=== PATIENT | female | born 1950 | race Caucasian/White ===

== ENCOUNTER 2023-06-05 08:30 | Outpatient (RCR) | payer OTHER, SELFPAY ==
[2023-01-31 10:10] VITALS: BP 120/60; BP 148/70
[2023-03-26 10:51] VITALS: BP 116/56; BMI 34.0
== END 2023-09-24 13:53 | disposition home or self-care (01) ==
LOC: HO.OT 08:30
PROVIDERS: PCP Internal Medicine; Visit Provider Internal Medicine Rheumatology
DX: M19.041 Primary osteoarthritis, right hand (principal); M19.042 Primary osteoarthritis, left hand
CPT/HCPCS: 29125; 97110; 97140; 97166; 97530; 97760

== ENCOUNTER 2024-05-07 10:22 | Outpatient (REF) | payer OTHER, SELFPAY ==
[2023-05-24 16:49] VITALS: BP 116/62; BP 168/68; BMI 34.4
[2024-05-07 18:13] LABS: MANUAL DIFF FLAG NO
[2024-05-07 18:31] LABS: Basophils Absolute Auto 0.1 X10*3/uL (0.0-0.2); Basophils Percent Auto 0.6 % (0-2); Eosinophils Absolute Auto 0.6 X10*3/uL (0.0-0.4); Eosinophils Percent Auto 5.3 % (0-4); Hematocrit 43.7 % (37.0-47.0); Hemoglobin 13.8 g/dl (12.0-16.0); Imm Gran Abs Auto 0.03 X10*3/uL (0.00-0.03); Imm Gran Pct Auto 0.3 % (0.0-0.4); Lymphocytes Percent Auto 18.3 % (20-40); Mean Corpuscular HGB Conc 31.6 g/dl (31.0-35.0); Mean Corpuscular Hemoglobin 28.3 pg (27.0-33.0); Mean Corpuscular Volume 89.7 fL (80.0-98.0); Mean Platelet Volume 9.5 fL (9.4-12.3); Monocytes Absolute Auto 0.6 X10*3/uL (0.1-1.2); Neutrophils Absolute Auto 7.7 x10*3/uL (2.0-8.3); Neutrophils Percent Auto 70.5 % (45-73); Platelet Count 325 X10*3/uL (160-400); Red Blood Count 4.87 X10*6/uL (4.20-5.50); Red Cell Distribution Width 14.1 % (11.0-16.0); White Blood Count 10.9 X10*3/uL (4.8-10.8)
[2024-05-07 18:36] LABS: Alanine Aminotransferase 17 U/L (0-31); Albumin Level 4.3 g/dL (3.5-5.0); Aspartate Amino Transferase 25 U/L (5-31); Calcium 9.6 mg/dL (8.4-10.2); Estimated Glomerular Filt Rate > 60; Magnesium 2.2 mg/dL (1.6-2.6)
[2024-05-07 18:52] LABS: Vitamin D 25-OH Total 50.7 ng/mL (>30)
== END 2024-05-07 10:23 | disposition home or self-care (01) ==
LOC: HO.HKASLDS 10:22
PROVIDERS: PCP Internal Medicine; Visit Provider Internal Medicine Rheumatology
DX: M81.0 Age-related osteoporosis without current pathological fracture (principal)
CPT/HCPCS: 36415; 82040; 82306; 82310; 82565; 83735; 84450; 84460; 85025

== ENCOUNTER 2024-05-07 10:22 | Outpatient (AMB) | payer OTHER, SELFPAY ==
[2023-05-24 16:49] VITALS: BP 116/62; BP 168/68; BMI 34.4
--- NOTE | 2024-05-07 10:40 | MHC.OFFVIS ---
Vital Signs 05/07/24 10:44 05/07/24 10:56 Height 5 ft 4 in Weight 200 lb BMI 34.3 BP 132/72 Blood Pressure Location Lt brachial Position Sitting Pulse 82 Pulse Source Pulse Oximeter Pulse Oximetry (%) 96 Oxygen Delivery Method Room Air Intake Visit Reasons: OA Intake Note: Patient presents for follow up on RA today. Patient would like refill on vitamin D and 90 days, supply, please. Allergies ALL COLOR DYES Allergy (Unknown, Uncoded 01/14/20 19:20) RASH/SOB HPI HPI OA: Details: She feels well. She feels stronger with physical therapy. She does exercise 6 days a week. PFS Social History Patient Tobacco Use Status: Never used Tobacco Review of Systems Const All systems reviewed & are unremarkable except as noted in HPI and below Physical Exam Vital Signs: Last Vital Signs Pulse 82 05/07/24 10:56 BP 132/72 05/07/24 10:56 Pulse Ox 96 05/07/24 10:56 Oxygen Delivery Method Room Air 05/07/24 10:56 BMI result Body Mass Index 34.3 Const Other: General: Comfortable CVS: RRR Respiratory: clear to auscultation bilaterally. Good respiratory effort Skin: No lesions seen MSK: Good range of motion of cervical spine. Good lumbar flexion. Good range of motion of upper extremities and lower extremities. No synovitis. No tender joints. Assessment & Plan Assessment & Plan (1) Osteoporosis: Comment: With history of fragility fracture affecting right wrists and left patella. She is high-risk for future fractures. Romosuzamab is indicated followed by anti resorptive agents such as Reclast to optimize gains from anabolic agent. Patient has history of coronary artery disease status post CABG 2016. I have spoken with her client service and consulting manager 2023 who has informed me that patient's cardiac status is protected with her current CABG and she is okay with patient being on Romosuzamab with close monitoring. Patient had a follow up with client service and consulting manager who confirmed that patient can be romosuzamab. Code(s): M81.0 - Age-related osteoporosis without current pathological fracture Category: Medical Qualifiers: Osteoporosis type: age-related Presence of current pathological fracture: unspecified Qualified Code(s): M81.0 - Age-related osteoporosis without current pathological fracture Plan: Romosuzamab PA Continue vitamin-D supplement We discussed increasing dietary calcium intake. She will try to drink 2-3 glasses of milk daily. She is currently having a serving of yogurt daily and a glass of milk. Return to clinic in 3 months (2) Lower extremity weakness: Comment: Improve with PT Code(s): R29.898 - Other symptoms and signs involving the musculoskeletal system Category: Medical Qualifiers: Laterality: bilateral Qualified Code(s): R29.898 - Other symptoms and signs involving the musculoskeletal system Plan: Continue exercises learned from physical therapy daily Orders: Orders Vitamin D 25-OH Total 05/07/24 M81.0 - Age-related osteoporosis without current pathological fracture Calcium 05/07/24 M81.0 - Age-related osteoporosis without current pathological fracture Albumin Level 05/07/24 M81.0 - Age-related osteoporosis without current pathological fracture Complete Blood Count Auto Diff 05/07/24 M81.0 - Age-related osteoporosis without current pathological fracture Creatinine 05/07/24 M81.0 - Age-related osteoporosis without current pathological fracture Alanine Aminotransferase 05/07/24 M81.0 - Age-related osteoporosis without current pathological fracture Aspartate Amino Transferase 05/07/24 M81.0 - Age-related osteoporosis without current pathological fracture Magnesium 05/07/24 M81.0 - Age-related osteoporosis without current pathological fracture Coding Level of Care Code Est Pt Level 4 (63996) Complex EM visit Add On G2211 Diagnoses Age related osteoporosis, unspecified pathological fracture presence M81.0 Osteoporosis type: age-related Presence of current pathological fracture: unspecified Weakness of both lower extremities R29.898 Laterality: bilateral
[2024-05-07 10:44] VITALS: BMI 34.3
[2024-05-07 10:56] VITALS: BP 132/72; PULSE 82; O2SAT 96
== END 2024-05-07 11:20 | disposition home or self-care (01) ==
PROVIDERS: PCP Internal Medicine; Visit Provider Internal Medicine Rheumatology
DX: M81.0 Age-related osteoporosis without current pathological fracture (principal); R29.898 Other symptoms and signs involving the musculoskeletal system
CPT/HCPCS: 99214

== ENCOUNTER 2024-08-04 10:00 | Outpatient (AMB) | payer OTHER, SELFPAY ==
[2023-05-24 16:49] VITALS: BP 116/62; BP 168/68; BMI 34.4
--- NOTE | 2024-08-04 10:01 | A.OFFVIS_ITS ---
Vital Signs 08/04/24 10:03 Height 5 ft 4 in Weight 204 lb 9.423 oz BMI 35.1 BP 122/62 Blood Pressure Location Lt brachial Position Sitting Pulse 85 Pulse Source Pulse Oximeter Pulse Oximetry (%) 98 Intake Visit Reasons: 3 mo follow up Intake Note: Patient presents for follow up on RA today. Allergies ALL COLOR DYES Allergy (Unknown, Uncoded 01/14/20 19:20) RASH/SOB HPI HPI 3 mo follow up: Details: Rheumatism and was denied. At this time she is on insulin subcutaneous once a day and uses Humalog subcutaneous before her meals (3 times a day) and Ozempic weekly subcutaneous injection. She is not on vitamin-D supplement since last visit because she did not have a refill. Calcium tablet was too large for her to swallow. [facility] Social History Patient Tobacco Use Status: Never used Tobacco Review of Systems Const All systems reviewed & are unremarkable except as noted in HPI and below Physical Exam Vital Signs: Last Vital Signs Pulse 85 08/04/24 10:03 BP 122/62 08/04/24 10:03 Pulse Ox 98 08/04/24 10:03 BMI result Body Mass Index 35.1 Const Other: General: Comfortable Skin: No lesions seen Ambulates with walker MSK: She has muscle wasting in her thighs Assessment & Plan Assessment & Plan (1) Osteoporosis: Comment: With history of fragility fracture affecting right wrists and left patella. She is high-risk for future fractures. Romosuzamab is indicated followed by anti resorptive agents such as Reclast to optimize gains from anabolic agent. Patient has history of coronary artery disease status post CABG 2016. I have spoken with her vice president business development 2023 who has informed me that patient's cardiac status is protected with her current CABG and she is okay with patient being on Romosuzamab with close monitoring. At this time she is on insulin subcutaneous injection daily, Humalog subcutaneous injection 3 times a day and Ozempic subcutaneous injection weekly. She is using abdomen sites for insulin, Humalog and Ozempic. She does not have adequate access for subcutaneous injection in her thighs to self administer Forteo. I am recommending Romosuzumab approval as patient requires subcutaneous site in upper arms and needs assistance for another individual to administer it to her as subcutaneous injection in the upper arm for assess ability. It is not appropriate for her to be on Prolia as it is an anti resorptive agent and should be followed by anabolic agent romosuzumab for optimal results in improving bone density as sequence matters. The benefits gained from romosuzumab is further consolidated with an anti resorptive agents such as Prolia or Reclast. Code(s): M81.0 - Age-related osteoporosis without current pathological fracture Category: Medical Qualifiers: Osteoporosis type: age-related Presence of current pathological fracture: unspecified Qualified Code(s): M81.0 - Age-related osteoporosis without current pathological fracture Plan: Romosuzamab PA Vitamin-D level, PTH and TSH ordered We discussed increasing dietary calcium intake. She will try to drink 2-3 glasses of milk daily. She is currently having a serving of yogurt daily and a glass of milk. [facility] Return to clinic in 3 months (2) Lower extremity weakness: Comment: Improve with PT Code(s): R29.898 - Other symptoms and signs involving the musculoskeletal system Category: Medical Qualifiers: Laterality: bilateral Qualified Code(s): R29.898 - Other symptoms and signs involving the musculoskeletal system Plan: Continue exercises learned from physical therapy daily Orders: Orders TSH reflex Free T4 Today M81.0 - Age-related osteoporosis without current pathological fracture Parathyroid Hormone Intact Today M81.0 - Age-related osteoporosis without current pathological fracture Vitamin D 25-OH Total Today M81.0 - Age-related osteoporosis without current pathological fracture Coding Level of Care Code Est Pt Level 4 (52273) Complex EM visit Add On G2211 Diagnoses Age related osteoporosis, unspecified pathological fracture presence M81.0 Osteoporosis type: age-related Presence of current pathological fracture: unspecified Weakness of both lower extremities R29.898 Laterality: bilateral Time Spent (min) 20
[2024-08-04 10:03] VITALS: BP 122/62; PULSE 85; O2SAT 98; BMI 35.1
--- OUTSIDE RECORDS SUMMARY | 2024-08-04 11:40 | XMS_ITS | Encounter Summary ---
Author Organization [facility] Address [address] [place] [address] Phone Care Team Providers Care Washing Machine Mechanic Name Role Phone Kathryn Romero MD Primary Care Provider [phone] Encounter Details Date Type Department Care Team (Late Contact Info) Description 05/01/2022 Telephone [facility] [address] [facility] [address] [place] [address] Marcela Lewis MD Social History Tobacco Use Types Packs/Day Years Used Date Smoking Tobacco: Never Smokeless Tobacco: Never Alcohol Use Standard Drinks/Week Comments Not Currently 0 (1 standard drink = 0.6 oz pur e alcohol) Comments Unknown Sex and Gender Information Value Date Recorded Sex Assigned at Not on file Legal Sex Female 5:25 PM EST Gender Identity Not on file Sexual Orientation Not on file documented as of this encounter Miscellaneous Notes * Telephone Encounter - Tiffani Brooke - 05/01/2022 11:35 AM EST Pt called she ran out of HCTZ and would like to know if she still needs to continuing taking his prescription. If so she'll need a refill. Please advise Thank you documented in this encounter Plan of Treatment Upcoming Encounters Date Type Department Care Team (Late Contact Info) Description 10/08/2024 9:45 AM EDT Office Visit [facility] [address] [place] [address] Camilla Hwang ARNP [address] [place] [address] documented as of this encounter Visit Diagnoses Not on filedocumented in this encounter Care Teams Washing Machine Mechanic Relationship Specialty Start Date End Date Kathryn Romero MD PCP - General Internal Medicine 07/15/23 documented as of this encounter
--- OUTSIDE RECORDS SUMMARY | 2024-08-04 11:40 | XMS_ITS | Clinical Summary ---
Author Organization [facility] Address [address] [place] [phone] Phone Care Team Providers Care Podiatric Technician Name Role Phone Kathryn Romero MD Primary Care Provider [phone] Allergies Active Allergy Reactions Criticality Noted Date Comments [place] 07/15/2020 Fd&C Blue #1 ([place] Blue) Hives 2006 Grass Pollen Standardized Ext Other (see comments) 07/15/2020 Green Dye Hives 09/05/2006 Red Dye #2 (Amaranth) Hives 09/05/2006 Yellow Dye Hives 09/05/2006 Medications Semaglutide, 1 MG/DOSE, (Ozempic, 1 MG/DOSE,) 2 MG/1.5ML solution pen-injector Inject 1 pre-filled pen syringe under the skin 1 (one) time per week Active prednisoLONE acetate (PRED FORTE) 1 % ophthalmic suspension Administer 1 drop into the right eye 2 (two) times a week Active docusate sodium (COLACE) 100 MG capsule Take 1 capsule by mouth 2 (two) times a day Active cetirizine (ZyrTEC) 10 MG tablet Take 1 tablet by mouth 1 (one) time each day Active carvedilol (COREG) 12.5 MG tablet Take by mouth 2 (two) times a day with meals 02/15/20 15 Active ASPIRIN 81 PO Take 1 tablet by mouth 1 (one) time each day Active dorzolamide-ti molol (COSOPT) 22.3-6.8 MG/ML ophthalmic solution INSTILL 1 DROP INTO RIGHT EYE TWICE A DAY DIRECTED 06/04/19 21 Active atorvastatin (LIPITOR) 40 MG tablet Take 1 tablet (40 mg total) by mouth 1 (one) time each day 90 tablet 3 01/24/20 22 Active HumaLOG KWIKPEN 100 UNIT/ML solution pen-injector PLEASE SEE ATTACHED FOR DETAILED DIRECTIONS 01/12/20 23 Active metFORMIN (GLUCOPHAGE) 500 MG tabletIndicati ons:Proteinuri a, not otherwise specified,Kylee l disorder due to type 2 diabetes mellitus <Diabetic nephropathy> (HCC) Take 2 tablets (1,000 mg total) by mouth in the morning and 2 tablets (1,000 mg total) in the evening. 2 in the am, 2 tabs in the pm daily. 360 tablet 3 07/15/19 24 Active sacubitril-estephanie sartan (Entresto) 49-51 MG per tablet Take 1 tablet by mouth in the morning and 1 tablet in the evening. Active Empagliflozin (Jardiance) 10 MG tablet Take 10 mg by mouth 1 (one) time each day in the morning Active spironolactone (ALDACTONE) 25 MG tablet Take 25 mg by mouth 1 (one) time each day Active Magnesium 400 MG tablet Take 1 tablet by mouth in the morning and 1 tablet in the evening. 025 Discontinued (Med List Maintenance) Cholecalcifero l (Vitamin D) 25 MCG (1000 UT) tablet Take 1 tablet by mouth 1 (one) time each day 025 Discontinued (Discontinue d by another clinician (does not appear on AVS)) Active Problems Problem Noted Date Diagnosed Date Vitamin D deficiency, not otherwise specified Hypo-osmolality and hyponatremia 01/07/2024 Proteinuria 01/25/2023 Aortic valve stenosis 01/23/2022 Chronic kidney disease, stage 2 (mild) 1 Essential hypertension 07/15/2020 Renal disorder due to type 2 diabetes mellitus 0 07/15/2020 Cataract 11/10/2018 Coronary atherosclerosis 05/14/2017 Microalbuminuria 03/05/2014 Family history of malignant neoplasm of gastrointestinal tract 10/22/2013 Overview (01/18/2022): Mother with colon cancer at 48 years old, colonoscopy indicated every 5 years. Hyperlipidemia 10/15/2012 Resolved Problems Problem Noted Date Diagnosed Date Resolved Date Pruritus of vagina 07/19/2021 2 Overview (01/18/2022): Last Assessment & Plan: Wet prep done today, will treat as indicated. Cardiac murmur 07/15/2020 07/18/2021 Chronic rhinitis 12/17/2019 01/18/2022 Allergic conjunctivitis of bilateral eyes 12/17/2019 01/18/2022 Glaucoma 11/10/2018 01/18/2022 Ischemic cardiomyopathy 08/13/201712/29 For resuscitation 07/10/2017 01/18/2022 Nonrheumatic aortic valve stenosis 03/18/2017 01/18/2022 Overview (01/18/2022): ECHO 11/02/2021 EF 60-65% Disorder of ankle 06/16/2012 01/18/2022 Encounters Date Type Department Care Team Description 07/08/2024 10:00 AM EDT Office Visit [facility] [address] [address] Camilla Hwang ARNP Chronic kidney disease, stage 2 (mild) (Primary Dx); Proteinuria, not otherwise specified; Essential hypertension; Vitamin D deficiency, not otherwise specified; Hypo-osmolality and hyponatremia 06/27/2024 Orders Only [facility] [address] [address] Camilla Hwang ARNP Proteinuria, not otherwise specified; Essential hypertension; Vitamin D deficiency, not otherwise specified; Hypo-osmolality and hyponatremia from Last 3 Months Immunizations Name Administration Dates Next Due Influenza Split High Dose Pr eservative Free IM 02/09/2021,01/28/2020,02/25/2019,02/18,01/13/2017,04/04/2015 Pneumococcal Conjugate 13-Valent 12/21/2015 Pneumococcal Polysaccharide 01/23/2017, 3,05/27/2002 Shingrix 11/17/2021,03/30/2020 Tdap 03/09/2008 Zoster 05/30/2016 Family History Medical History Relation Comments Hypertension Father Cancer Mother Colon CA Hypertension Mother Kidney disease Sibling 1 CKD Hypertension Sibling 2 Heart disease Sibling 3 Diabetes Sibling 4 TYPE 2 Cancer Sibling 5 Liver CA Relation Status Comments Father Mother Sibling 1 Sibling 2 Sibling 3 Sibling 4 Sibling 5 Social History Tobacco Use Types Packs/Day Years Used Date Smoking Tobacco: Never Smokeless Tobacco: Never Tobacco Cessation:Counseling Given: Not Answered Alcohol Use Standard Drinks/Week Comments Not Currently 0 (1 standard drink = 0.6 oz pur e alcohol) Comments Unknown Sex and Gender Information Value Date Recorded Sex Assigned at Not on file Legal Sex Female 5:25 PM EST Gender Identity Not on file Sexual Orientation Not on file Last Filed Vital Signs Vital Sign Reading Time Taken Comments Blood Pressure 140/70 07/08/2024 10:45 AM EDT Pulse 81 07/08/2024 10:19 AM EDT Temperature - - Respiratory Rate - - Oxygen Saturation 97% 07/08/2024 10:19 AM EDT Inhaled Oxygen Concentration - - Weight 93.4 kg (206 lb) 07/08/2024 10:19 AM EDT Height 165.1 cm (5' 5 ) 01/25/2023 10:01 AM EDT Body Mass Index 34.28 01/25/2023 10:01 AM EDT Plan of Treatment Upcoming Encounters Date Type Department Care Team (Late st Contact Info) Description 10/08/2024 9:45 AM EDT Office Visit [facility] [address] [address] Camilla Hwang ARNP [address] [address] Health Maintenance Due Date Last Done Comments Breast Cancer Screening 1950 Colorectal Cancer Screening: Annual FOBT 1999 Colorectal Cancer Screening: Colonoscopy 1999 Colorectal Cancer Screening: Sigmoidoscopy 1999 Hepatitis B Vaccine (1 of 3 - Risk 3-dose series) 2010 Diabetes: Ophthalmology Exam 05/29/2020 Diabetes: Pedal Pulse Checked 05/29/2020 Diabetes: Sensory Foot Exam 05/29/2020 Diabetes: Visual Foot Exam 05/29/2020 Diabetes: Hemoglobin A1C 07/23/202404/24/ 024, 10/20/2021, 12/01/2020, Additional history exists Pneumococcal Vaccine: 65+ Years Completed 01/23/2017, 12/21/2015, 12/10/2012, Additional history exists Influenza Vaccine Completed 01/16/2024, , 02/02/2022, Additional history exists Procedures Procedure Name Priority Date/Time Associated Diagnosis Comments PROTEIN / CREATININE RATIO, URINE Routine 07/08/2024 11:40 AM EDT Chronic kidney disease, stage 2 (mild) Proteinuria, not otherwise specified EXT RESULT ENTRY Routine 12/01/2020 from Last 3 Months or Most Recently Relevant to Health Maintenance Results * (ABNORMAL) Urine Protein / creatinine ratio (07/08/2024 11:40 AM EDT) Protein, Ur 32 mg/dL [facility] Urine Protein/Creati nine Ratio 0.91(H) <=0.20 mg/mg creat [facility] Creatinine, Urine 35.0 mg/dL [facility] Urine (Urine, Clean Catch) 07/08/2024 11:40 AM EDT 07/08/2024 1:38 PM EDT Camilla Hwang [facility] URINE ORDERABLES Final Result [facility] [address] [place] [address] * (ABNORMAL) EXT RESULT ENTRY (12/01/2020) Sodium 140 137 - 147 Potassium 4.2 3.4 - 5.5 Chloride 104 99 - 108 Bicarbonate (CO2) 29 22 - 30 mmol/L Anion Gap 7 <=30 MMOL/L Glucose 109 60 - 200 BUN 12 4 - 21 mg/dL Creatinine 0.67 0.50 - 1.10 mg/dL Calcium 8.7 8.7 - 10.7 mg/dL eGFR Non-Afr [place] >60 Hemoglobin A1C 8.3(A) 4.0 - 6.0 Creatinine, Urine Random 99 mg/dL Alb/Creat Ratio, Ur 72.5 mg/g Creat Microalbumin Urine Random (External Result Entry) 71.8 Triglycerides 208(A) 40 - 160 Cholesterol 141 0 - 200 HDL 50 35 - 70 MG/DL LDL Calculated 50 0 - 160 mg/dL 12/01/2020 Historical Provider LAB BLOOD ORDERABLES Cindy l Result from Last 3 Months or Most Recently Relevant to Health Maintenance Insurance UN[employer]ARE UN[employer] Care Teams Podiatric Technician Relationship Specialty Start Date End Date Kathryn Romero MD PCP - General Internal Medicine 07/15/23
--- OUTSIDE RECORDS SUMMARY | 2024-08-04 11:41 | XMS_ITS | Clinical Summary ---
Author Organization [facility] Address [address] [place] [address] Phone Care Team Providers Care Pharmacy Intern Name Role Phone Kathryn Romero MD Primary Care Provider [phone] Allergies Active Allergy Reactions Criticality Noted Date Comments Amaranth Hives 09/05/2006 Noble Derived Rash 07/15/2020 D And C Yellow No.10 Hives 09/05/2006 Fd And C Blue No.1 Aluminum Armstrong Hives 01/2007 Fd And C Green No.3 Hives 09/05/2006 House Dust 12/05/2023 Other 07/09/2022 Seasonal Pollen Extracts 12/05/2023 Red Dye 12/05/2023 All colored dyes Medications aspirin 81 mg EC tablet Take 81 mg by mouth daily. Active cetirizine (ZyrTEC) 10 mg tablet Take 1 tablet by mouth daily. 02/10/20 21 Active cholecalciferol (VITAMIN D-3) 25 mcg (1,000 unit) capsule Take 1 Capsule by mouth daily. 08/13/19 24 Active dextrose 40 % gel Take 15 g by mouth as needed for Other (hypoglycemia). 08/13/19 24 Active docusate sodium (COLACE) 100 mg capsule Take 100 mg by mouth 2 times daily. Active insulin aspart (NovoLOG Flexpen U-100 Insulin) 100 unit/mL (3 mL) injection pen Inject 8-15 Units into the skin 3 times daily (before meals). Inject 3 times a day with meals per scale: 100-149: 8 units; 150-200: 9 units; 201-250: 10 units; 251-300: 11 units; 301-350: 12 units; 351-400: 13 units; 401-450: 14 units; 451-500: 15 units 08/14/19 24 Active pen needle, diabetic 32 gauge x 5/32 needle Inject 4 Devices into the skin daily. 08/22/19 24 Active pen needle, diabetic (Insupen Pen Needle) 32 gauge x 5/32 needle Use to inject insulin 5 times daily 12/20/19 23 Active magnesium oxide (MAG-OX) 400 mg magnesium tablet Act amie metFORMIN (GLUCOPHAGE) 500 mg tablet TAKE 2 TABLETS BY MOUTH TWICE A DAY WITH MEALS. 06/18/19 24 Active nystatin (MYCOSTATIN) ointment Apply up to BID prn itching 02/12/20 24 025 Active ONETOUCH ULTRASOFT LANCETS MISC 1 Each by Does not apply route 5 times daily. 11/14/19 24 Active prednisoLONE acetate (PRED FORTE) 1 % ophthalmic suspension Place 1 Drop into the right eye twice a week. 07/17/19 18 Active triamcinolone (KENALOG) 0.025 % ointment APPLY TWICE A DAY FOR 28 DAYS 12/09/19 24 Active amoxicillin (AMOXIL) 500 mg tablet Take 4 tablets (2,000 mg total) by mouth 1 (one) time if needed (1 hour prior to dental procedures). 12 tablet 1 03/18/20 24 Active insulin glargine (Lantus Solostar U-100 Insulin) 100 unit/mL (3 mL) injection pen INJECT 90 UNITS SUBCUTANEOUSLY AT BEDTIME 45 mL 11 03/31/20 24 Active Additional Information Patient taking differently: Every morning, Reported on 06/05/2024 carvediloL (COREG) 12.5 mg tablet TAKE 1 TABLET BY MOUTH 2 TIMES DAILY (WITH MEALS) FOR 90 DAYS. 180 tablet 1 05/04/19 25 Active Ozempic 2 mg/dose (8 mg/3 mL) injection penIndications:T ype 2 diabetes mellitus with other diabetic kidney complication INJECT 2 MG INTO THE SKIN EVERY 7 DAYS 3 mL 5 05/01/19 25 Active empagliflozin (JARDIANCE) 25 mg tablet Take 1 tablet (25 mg total) by mouth 1 (one) time each day. 90 tablet 1 05/19/19 25 Active Additional Information Patient not taking.Reported on 06/05/2024 sacubitriL-valsa rtan (ENTRESTO) 49-51 mg per tablet Take 1 tablet by mouth 2 (two) times a day. 180 each 3 05/25/19 25 026 Active spironolactone (ALDACTONE) 25 mg tablet Take 1 tablet (25 mg total) by mouth 1 (one) time each day. 90 each 3 05/25/19 25 026 Active dorzolamide-perla loL (COSOPT) 22.3-6.8 mg/mL ophthalmic solution Administer 1 drop into the right eye 2 (two) times a day. Active empagliflozin (Jardiance) 10 mg tablet Take 1 tablet (10 mg total) by mouth 1 (one) time each day in the morning. Active OneTouch Ultra Test test stripIndications :Type 2 diabetes mellitus with other diabetic kidney complication USE TO TEST 4 TIMES DAILY 400 strip 1 06/30/19 25 Active atorvastatin (LIPITOR) 40 mg tablet TAKE 1 TABLET BY MOUTH EVERY DAY 90 tablet 1 07/03/19 25 Active polyethylene glycol (Golytely) 236-22.74-6.74 -5.86 gram solution Take 4L by mouth once for one dose. May substitue any PEG. Starting at 6PM the night before your procedure drink 1 8oz glasses at your own pace until you complete half of the gallon. Finish 2nd half of the gallon 5 hours before your procedure. 4000 mL 08/01/19 25 Active bisacodyL (DULCOLAX) 5 mg EC tablet Take 2 tablets by mouth right before beginning bowel prep. See instructions provided by the office 2 tablet 08/01/19 25 Active Active Problems Problem Noted Date Diagnosed Date Cutaneous candidiasis 02/12/2024 Overview (03/12/2024): Last Assessment & Plan: Could have this on and off. Can try topical nystatin ointment prn. Rx given. LBBB (left bundle branch block) 10/15/2022 Overview (03/12/2024): Last Assessment & Plan: This may also be playing a role in the lack of recovery of EF. If EF does not recover with medical therapy, we will need to consider cardiac resynchronization. History of transcatheter aortic valve replacemen t (TAVR) 10/15/2022 Overview (05/25/2024): - Because of her complicated CABG, AVR could not be performed surgically in 2017 - She went on to develop severe aortic stenosis that started to become symptomatic in early 2022 - Status post #23 Duncan S3 bioprosthetic aortic valve replacement via TAVR approach on 10/04/2022 without major complications -Most recent echocardiogram on 11/26/2023 showing mild, concentric left ventricular hypertrophy with normal cavity size, moderate, segmental LV systolic dysfunction with basal to mid inferoseptal, inferior, and anteroseptal hypokinesis to akinesis, normal right ventricular size with reduced systolic function, status post bioprosthetic aortic valve replacement-valve is well-seated with physiologic gradients and no aortic insufficiency-all in all unchanged from prior echo in 2022 Last Assessment & Plan: Valve sounds good on exam today. Assessment & Plan (05/25/2024 10:17 AM EST): Follow-up echocardiogram in 11 months as yearly surveillance. Osteopenia 03/14/2022 Vaginal itching 07/19/2021 Overview (03/12/2024): Last Assessment & Plan: Wet prep done today, will treat as indicated. Allergic conjunctivitis, bilateral 12/17/2019 Chronic rhinitis 12/17/2019 Coronary atherosclerosis 05/14/2017 Overview (05/25/2024): DX:Coronary artery disease involving match-[place] coronary artery of match-e[place] heart without angina pectoris - Cath in March 2017 for stable anginal symptoms that were progressing showed severe three-vessel disease with several chronic total occlusions - Status post CABG in 2018 with KABA to the LAD, vein graft to the ramus-the CABG was an extremely complex and prolonged procedure complicated by severe IntraOp bleeding requiring 8 units packed red blood cells along with FFP, cryoprecipitate, platelets from a bleeding venous harvest site in addition to a difficult time accessing the LAD due to an intramural course-ultimately the patient suffered cardiogenic shock requiring a balloon pump and drainage from a sternotomy site-therefore planned aortic valve replacement for concurrent moderate aortic stenosis was not performed - Unfortunately, she went on to develop severe aortic stenosis in 2021-see AVR section for further details -Preoperatively prior to TAVR she had an updated cardiac cath in July 2022 showing again severe match-[place]ish band four-vessel disease with patent vein graft to the ramus and patent KABA to the LAD Assessment & Plan (05/25/2024 10:16 AM EST): No recurrent anginal symptoms. Continue current atorvastatin, aspirin. Encouraged her to keep up with her exercises. Consider incorporating a pedal bike into the regimen Mixed hyperlipidemia 10/15/2012 Allergic rhinitis Overview (03/12/2024): DX:Allergic rhinitis Microalbuminuria Overview (03/12/2024): DX:Microalbuminuria; COMMENT: Sees Dr. Lewis Ankle weakness Overview (03/12/2024): DX:Ankle weakness Essential hypertension, benign Overview (03/12/2024): DX:Essential hypertension, benign Cataract Overview (03/12/2024): DX:Cataract Glaucoma Overview (03/12/2024): DX:Glaucoma Ischemic cardiomyopathy Overview (05/25/2024): -Most recently a drop in ejection fraction going from echo in April 2022 to post TAVR echo in September 2022 which has persisted on most recent echo in October 2023 -However on most recent echocardiogram after GDMT titration in January 2024, she had recovery of ejection fraction to 45 to 50% which was an improvement, moderate, concentric left ventricular hypertrophy with mild, segmental LV systolic dysfunction with hypokinesis to akinesis of the basal to mid inferoseptal, inferior schwartz with dyskinesis and possible aneurysmal formation of the apical septum though this may have also been related to interventricular conduction delay from the left bundle branch block with apical foreshortening; hypokinesis of the apical inferior wall, paradoxic septal motion in keeping with left bundle branch block, grossly normal right ventricular size but could not assess function, status post bioprosthetic aortic valve replacement-valve is well-seated with physiologic performance and no aortic insufficiency Assessment & Plan (05/25/2024 10:15 AM EST): Reviewed that from a cardiac standpoint, increasing Jardiance dosing is not necessarily going to further improve cardiac outcomes but, I suggested she strongly bring this up with her manager production as this is being done for worsening A1c and not for cardiac reasons. For now, she will continue 10 mg of Jardiance but will plan to discuss the dosing change with her manager production. Continue current spironolactone, Entresto, carvedilol. She was happy to hear that her ejection fraction had improved. Type 2 diabetes mellitus with cataract Overview (03/12/2024): DX:Type 2 diabetes mellitus with cataract (HCC) Type 2 diabetes mellitus with renal manifestatio ns Overview (03/12/2024): DX:Type 2 diabetes mellitus with renal manifestations (HCC) Encounters Date Type Department Care Team Description 06/15/2024 Telephone Gastroenterology - [address] [facility] [address] [place] [id number] Conchis Carranza MD Special Procedure 06/05/2024 Telephone [facility] Cardiology [facility] [address] [facility] [address] [place] [address] Malorie Cobos MD Med Refill (Entresto refill ) 05/25/2024 9:20 AM EST Office Visit [facility] Cardiology [facility] [address] [facility] [address] [place] [address] Malorie Cobos MD Coronary artery disease involving match-e[place]be[place] coronary artery of match-e[place]be[place]ish [place] heart without angina pectoris (Primary Dx); History of transcatheter aortic valve replacement (TAVR); Ischemic cardiomyopathy 05/19/2024 1:00 PM EST Office Visit Endocrinology [address] [phone] Joaquina Rosado PA Type 2 diabetes mellitus with cataract (CMS/HCC) (Primary Dx) from Last 3 Months Immunizations Name Administration Dates Next Due Influenza trivalent, 0.5mL ( Fluad) 65yo and older 01/16/2024,04/04/2015 Influenza trivalent, 0.5mL ( Fluzone High-dose) 65yo and older 01/14/2023,02/02/2022,02/09/2021,01/27,02/25/2019,02/18/2018,01/13/2017 Influenza trivalent, with pr eservative (Fluzone; Afluria) 6mo and older 02/21/2016,02/25/2015,02/14/2014,02/16,02/12/2012,02/18/2011,02/14/2010 ,01/18/2009,02/24/2008,03/25/2007,07/2004 Pneumococcal conjugate 13 va lent (Prevnar 13, PCV13) 2mo and older 12/21/2015 Pneumococcal polysaccharide 23 valent (Pneumovax 23) 2yo and older 01/23/2017,12/10/2012,05/27/2002 Td Tetanus diptheria (Tdvax) 7yo and older 06/19/2018 Tdap Tetanus diptheria acell ular pertussis (Boostrix; Adacel) 7yo and older 03/09/2008 Zoster Live 05/30/2016 Zoster recombinant (Shingrix ) 19yo and older 11/17/2021,03/30/2020 Surgical History Surgery Date Site/Laterality Comments CORONARY ARTERY BYPASS GRAFT 06/07/2017 PROCEDURE: HISTORICAL CABG; COMMENT: double COLONOSCOPY 11/08/2010 PROCEDURE: HISTORICAL COLONOSCOPY; COMMENT: Negative COLONOSCOPY 2001 PROCEDURE: HISTORICAL COLONOSCOPY; COMMENT: negative COLONOSCOPY 10/15/2018 PROCEDURE: HISTORICAL COLONOSCOPY; COMMENT: 5 mm polyp in the transverse colon: tubular adenoma. OTHER SURGICAL HISTORY 10/04/2022 PROCEDURE: GA REPLACE AORTIC VALVE PERQ FEMORAL ARTRY APPROACH Medical History Medical History Date Comments Essential hypertension, benign 11/28/2005 D X:Essential hypertension, benign Family history of malignant neoplasm of gastrointestinal tract 10/22/2013 DX:Family history of maligna nt neoplasm of gastrointestinal tract; COMMENT: Mother with colon cancer at 48 years old, colonoscopy indicated every 5 years. Allergic rhinitis 09/05/2006 DX:Allergic rh initis Hyperlipidemia 10/15/2012 DX:Hyperlipidemi a Type 2 diabetes mellitus wit h renal manifestations (CMS/HCC) 10/17/2017 DX:Type 2 diabetes mellitus with renal manifestations (HCC) S/P CABG x 2 07/10/2017 DX:S/P CABG x 2; COMMENT: KABA-LAD, SVG-ramus on 05/2017Dr. Jose Juan Leal Nonrheumatic aortic valve stenosis 08/13/2017 DX:Nonrheumatic aortic valve stenosis Microalbuminuria 08/25/2009 DX:Microalbumin uria; COMMENT: Sees Dr. Lewis Ischemic cardiomyopathy 08/13/2017 DX:Ische antony cardiomyopathy Coronary artery disease invo lving match[place]ish band coronary artery of match[place] heart without angina pectoris 05/14/2017 DX:Coronary artery disea se involving match[place]ish band coronary artery of match[place] heart without angina pectoris Ankle weakness 06/16/2012 DX:Ankle weaknes s Aortic stenosis, moderate 03/18/2017 DX:Aor tic stenosis, moderate Glaucoma 11/10/2018 DX:Glaucoma Cataract 11/10/2018 DX:Cataract Type 2 diabetes mellitus wit h cataract 11/10/2018 DX:Type 2 diabetes mellitus with cataract (HCC) Aortic valve stenosis, severe 03/18/2017 DX :Aortic valve stenosis, severe Family History Medical History Relation Name Comments Other: skin cancer Aunt face and back-lesions removed-maternal Other: CAD with stent Brother 1 Tang alive at 68, amyloidosis Colon polyps Brother 2 Bill ? number of darrion yps-? 8-9 Other: liver cancer Brother 3 Husam at 57; also 19 colon polyps; hx hep B, ? heart murmur Heart failure Father at 82, di abetes Other: Other Maternal Grandfather in his 80s-? cause Other: Other Maternal Grandmother in her early 80s ? cause Colon cancer Mother at 56 Throat cancer Paternal Grandfather a t 82-smoker Other: Other Paternal Grandmother possibl e HTN Colon polyps Sister 1 Shani ? number polyps Colon polyps Sister 2 Alicia ? number of darrion yps Breast cancer Neg Hx Relation Name Status Comments Aunt Brother 1 Tang Brother 2 Bill Brother 3 Husam Father Maternal Grandfather Maternal Grandmother Mother Paternal Grandfather Paternal Grandmother Sister 1 Shani Sister 2 Alicia Social History Tobacco Use Types Packs/Day Years Used Date Smoking Tobacco: Never Smokeless Tobacco: Never Alcohol Use Standard Drinks/Week Comments No 0 (1 standard drink = 0.6 oz pur e alcohol) Comments No Sex and Gender Information Value Date Recorded Sex Assigned at Female 06/12/2024 12:50 PM EST Legal Sex Female 12:10 AM EST Gender Identity Female 06/12/2024 12:50 PM EST Sexual Orientation Not on file Obstetrics History Last Filed Vital Signs Vital Sign Reading Time Taken Comments Blood Pressure 142/80 05/25/2024 9:32 AM EST Pulse 81 05/25/2024 9:32 AM EST Temperature 37 ??C (98.6 ??F) 05/19/2024 1:18 PM EST Respiratory Rate 14 04/15/2024 11:00 AM EST Oxygen Saturation 97% 05/25/2024 9:32 AM EST Inhaled Oxygen Concentration - - Weight 90.7 kg (200 lb) 06/05/2024 11:00 AM EST Height 161.3 cm (5' 3.5 ) 06/05/2024 11:00 AM ES T Body Mass Index 34.87 06/05/2024 11:00 AM EST Plan of Treatment Upcoming Encounters Date Type Department Care Team (Late st Contact Info) Description 08/14/2024 12:00 PM EDT Appointment [facility] Endoscopy [address] [place] [phone] Conchis Carranza MD [address] [address] 10/16/2024 11:30 AM EDT Office Visit [facility] [place] - [address] [phone] Kathryn Romero MD [address] [place] [address] 03/01/2025 11:00 AM EST Ancillary Procedure [facility] [address] [phone] 03/15/2025 10:30 AM EST Appointment Radiology Department - [address] [phone] Health Maintenance Due Date Last Done Comments COVID-19 Vaccine (#1) 1955 Hepatitis A Vaccines (1 of 2 - Risk 2-dose series) 1969 Hepatitis B Vaccines (1 of 3 - Risk 3-dose series) 2010 RSV Immunization Adult Patients (1 - Risk 60-74 years 1-dose series) 2010 Depression Screening 04/07/2022 Falls Risk Assessment 04/07/2022 Social Influencers of Health Screening 04/07/2022 Colorectal Cancer Screening: Colonoscopy 10/16/2023 10/15/2018, 10/15/2018 Diabetes: Annual Retina Eye Exam 05/13/2024 05/13/2023 Diabetes: Blood Sugar Control Test (HGBA1C) 10/23/2024 04/24/2024, 01/13/2024, 01/13/2024, Additional history exists Diabetes: Annual Urine Albumin-Creatinine Ratio (uACR) 11/06/2024 11/07/2023 Diabetes: Annual GFR (Glomerular Filtration Rate) 04/24/2025 04/24/2024, 01/13/2024, 01/13/2024, Additional history exists Hypertension/CHF/CAD Annual BMP Blood Test 04/24/2025 04/24/2024, 01/13/2024, 01/13/2024, Additional history exists Diabetes: Annual Foot Exam 05/19/2025 05/19/2024 Breast Cancer Screening 02/12/2026 02/13/20 24, 02/13/2024, 02/01/2023, Additional history exists DTaP,Tdap,and Td Vaccines (3 - Td or Tdap) 06/19/2028 06/19/2018, 03/09/2008 Cholesterol Screening (Lipid Panel) 04/24/2029 04/24/2024, 11/07/2023, 11/07/2023 Osteoporosis Screening (Bone Density Screening) 03/12/2037 03/12/2022 Hepatitis C Screening Completed 10/15/2012 Pneumococcal Vaccine: 50+ Years Completed 01/23/2017, 12/21/2015, 12/10/2012, Additional history exists Zoster Vaccines Completed 11/17/2021, 05/2019, 05/30/2016 Influenza Vaccine Completed 01/16/2024, , 02/02/2022, Additional history exists HIB Vaccines Aged Out No longer eligi ble based on patient's age to complete this topic HPV Vaccines Aged Out No longer eligi ble based on patient's age to complete this topic IPV Vaccines Aged Out No longer eligi ble based on patient's age to complete this topic MMR Vaccines Aged Out No longer eligi ble based on patient's age to complete this topic Meningococcal ACWY Vaccine Aged Out N o longer eligible based on patient's age to complete this topic Meningococcal B Vaccine Aged Out No l onger eligible based on patient's age to complete this topic RSV Immunization Patients Under 20 months Aged Out No longer eligible based on patient's age to complete this topic Varicella Vaccines Aged Out No longer eligible based on patient's age to complete this topic Procedures Procedure Name Priority Date/Time Associated Diagnosis Comments PROTEIN AND CREATININE WITH RATIO, URINE Routine 07/08/2024 11:40 AM EDT Chronic kidney disease, stage II (mild) ECG 12-LEAD Routine 05/25/2024 9:38 AM EST Coronary artery disease involving match[place] coronary artery of match[place] heart without angina pectoris POC GLUCOSE Routine 05/19/2024 1:21 PM EST Type 2 diabetes mellitus with cataract ([facility]) COMPREHENSIVE METABOLIC PANEL Routine 04/24/2024 9:53 AM EST Essential hypertension, benign HEMOGLOBIN A1C Routine 04/24/2024 9:53 AM EST Type 2 diabetes mellitus with stage 3a chronic kidney disease, with long-term current use of insulin ([facility]) LIPID PANEL WITH REFLEX TO DIRECT LDL Routine 04/24/2024 9:53 AM EST Mixed hyperlipidemia SCREENING MAMMOGRAPHY BI 2-VIEW BREAST INC CAD Routine 02/13/2024 10:42 AM EDT Encounter for screening mammogram for malignant neoplasm of breast URINE ALBUMIN CREATININE RATIO Routine 11/07/2023 DIABETES EYE EXAM Routine 05/13/2023 DXA BONE DENSITY STUDY 1+ SITS AXIAL SKEL Routine 03/12/2022 10:13 AM EST Other specified disorders of bone density and structure, unspecified site COLONOSCOPY Routine 10/15/2018 HEPATITIS C SCREENING Routine 10/15/2012 from Last 3 Months or Most Recently Relevant to Health Maintenance Results * (ABNORMAL) Protein and creatinine with ratio, urine (07/08/2024 11:40 AM EDT) Protein, Urine 32 mg/dL LAB CHEMISTRY METHOD 07/08/2024 2:47 PM EDT [facility] Prot/Creat, Ur 0.91(H) <=0.20 mg/mg creat LAB CHEMISTRY METHOD 07/08/2024 2:47 PM EDT [facility] Creatinine, Urine 35.0 mg/dL LAB CHEMISTRY METHOD 07/08/2024 2:47 PM EDT [facility] Urine Urine specimen obtained by clean catch procedure / Unknown Non-blood Collection / Unknown 07/08/2024 11:40 AM EDT 07/08/2024 11:43 AM EDT Camilla Hwang [facility] URINE ORDERABLES Final R esult [facility] [address] [place] [address], * ECG 12 lead (05/25/2024 9:38 AM EST) Ventricular Rate ECG 81 BPM GEMUSE Atrial Rate 81 BPM GEMUSE P-R Interval 212 ms GEMUSE QRS Duration 162 ms GEMUSE Q-T Interval 440 ms GEMUSE QTc 511 ms GEMUSE P Wave Neversink 47 degrees GEMUSE R Ne[place]ink 6 degrees GEMUSE T Neversink -176 degrees GEMUSE ECG Interpretation Sinus rhythm with 1st degree A-V block Left bundle branch block Abnormal ECG When compared with ECG of 08-APR-2021 01:16, Left bundle branch block is now Present ??but has been seen on subsequent ECGs Criteria for Anterior infarct are no longer Present Criteria for Inferior infarct are no longer Present Confirmed by MALORIE COBOS ([id number]) on 05/25/2024 11:36:52 AM GEMUSE 05/25/2024 9:38 AM EST 05/25/2024 11:36 AM EST Malorie Cobos MD ECG ORDERABLES Final Result GEMUSE * POC glucose manually resulted (05/19/2024 1:21 PM EST) Pathologist [facility] Glucose POC 180 mg/dL Blood Capillary blood specimen / Unknown 05/19/2024 1:21 PM EST Joaquina MONTENEGRO POINT OF CARE TEST ENTER/ED IT ORDERABLES Final Result * (ABNORMAL) Lipid panel with reflex to direct LDL (04/24/2024 9:53 AM EST) [facility] Cholesterol 172 0 - 200 mg/dL LAB CHEMISTRY METHOD 04/24/2024 12:02 PM [facility] Triglycerides 220(H) 0 - 150 mg/dL LAB CHEMISTRY METHOD 04/24/2024 12:02 PM [facility] HDL 53 >=40 mg/dL LAB CHEMISTRY METHOD 04/24/2024 12:02 PM [facility] LDL Calculated 75 0 - 100 mg/dL LAB CHEMISTRY METHOD 04/24/2024 12:02 PM [facility] VLDL Cholesterol Aman 44 mg/dL LAB CHEMISTRY METHOD 04/24/2024 12:02 PM [facility] Non HDL Chol. (LDL+VLDL) 119 <145 mg/dL LAB CHEMISTRY METHOD 04/24/2024 12:02 PM [facility] Chol/HDL Ratio 3.2 0.0 - 4.4 LAB CHEMISTRY METHOD 04/24/2024 12:02 PM EST [facility] Blood Venous blood specimen / Unknown Venipuncture / Unknown 04/24/2024 9:53 AM EST 04/24/2024 9:53 AM EST us Kathryn Romero MD LAB BLOOD ORDERABLES Final Resul t Performing Organization Address City/[facility]/ZIP Co de Phone Number [facility] [address] [place] [address], [place] [phone] * (ABNORMAL) Hemoglobin A1c (04/24/2024 9:53 AM EST) Hemoglobin A1C 7.6(H) <6.5 % LAB CHEMISTRY METHOD 04/24/2024 2:35 PM EST [facility] Mean Bld Glu Estim. 171 mg/dL LAB CHEMISTRY METHOD 04/24/2024 2:35 PM [facility] Blood Venous blood specimen / Unknown Venipuncture / Unknown 04/24/2024 9:53 AM EST 04/24/2024 9:53 AM EST us Kathryn Romero MD LAB BLOOD ORDERABLES Final Resul t Performing Organization Address [facility]/ZIP Co de Phone Number [facility] [address] [place] [address], [place] [phone] * Comprehensive metabolic panel (04/24/2024 9:53 AM EST) Sodium 139 133 - 145 mmol/L LAB CHEMISTRY METHOD 04/24/2024 12:02 PM EST [facility] Potassium 4.8 3.5 - 5.5 mmol/L LAB CHEMISTRY METHOD 04/24/2024 12:02 PM [facility] Chloride 105 96 - 110 mmol/L LAB CHEMISTRY METHOD 04/24/2024 12:02 PM EST [facility] CO2 30 21 - 32 mmol/L LAB CHEMISTRY METHOD 04/24/2024 12:02 PM [facility] Anion Gap 4 3 - 11 LAB CHEMISTRY METHOD 04/24/2024 12:02 PM [facility] [facility] Glucose 98 70 - 100 mg/dL LAB CHEMISTRY METHOD 04/24/2024 12:02 PM [facility] BUN 16 5 - 25 mg/dL LAB CHEMISTRY METHOD 04/24/2024 12:02 PM [facility] Creatinine 0.99 0.50 - 1.10 mg/dL LAB CHEMISTRY METHOD 04/24/2024 12:02 PM [facility] eGFR 60 >=60 mL/min/1. 73m2 LAB CHEMISTRY METHOD 04/24/2024 12:02 PM [facility] Comment:Calculation based on the??Chronic Kidney Disease Epidemiology Collaboration (CKD-EPI) equation refit??without adjustment for race. BUN/Creatinine Ratio 16.2 LAB CHEMISTRY METHOD 04/24/2024 12:02 PM [facility] Calcium 9.4 8.5 - 10.5 mg/dL LAB CHEMISTRY METHOD 04/24/2024 12:02 PM [facility] AST (SGOT) 18 10 - 42 unit/L LAB CHEMISTRY METHOD 04/24/2024 12:02 [facility] ALT (SGPT) 24 10 - 60 unit/L LAB CHEMISTRY METHOD 04/24/2024 12:02 PM [facility] Alkaline Phosphatase 75 42 - 121 unit/L LAB CHEMISTRY METHOD 04/24/2024 12:02 PM [facility] Total Protein 7.0 6.0 - 8.0 g/dL LAB CHEMISTRY METHOD 04/24/2024 12:02 PM [facility] Albumin 3.7 3.2 - 5.0 g/dL LAB CHEMISTRY METHOD 04/24/2024 12:02 PM [facility] Total Bilirubin 0.3 0.0 - 1.4 mg/dL LAB CHEMISTRY METHOD 04/24/2024 12:02 PM EST [facility] Blood Venous blood specimen / Unknown Venipuncture / Unknown 04/24/2024 9:53 AM EST 04/24/2024 9:53 AM EST us Kathryn Romero MD LAB BLOOD ORDERABLES Final Resul t [facility] ([facility]) [facility] [address] [place] [address], * SCREENING MAMMOGRAPHY BI 2-VIEW BREAST INC CAD (02/13/2024 10:42 AM EDT) Anatomical Region Laterality Modality Radiographic Yas ging 02/01/2023 10:4 0 AM EDT Narrative 02/13/2024 11:21 AM EDT This is a summary report. The complete report is available in the patient's medical record. If you cannot access the medical record, please contact the sending organization for a detailed fax or copy. Full field digital screening tomosynthesis mammography, reviewed with CAD and compared to previous. The breasts are composed of fatty and fibroglandular tissue. ??No suspicious mass, architectural distortion or suspicious calcifications are identified. IMPRESSION: : No mammographic evidence of malignancy. BIRADS 1-Negative; N. Breast density: The breasts have scattered areas of fibroglandular density. 5 year breast cancer risk assessment 2.0 % Lifetime breast cancer risk assessment 4.8 % Breast cancer risk category Low (<15%) Location: [facility], [address] [place] [address], [address], [phone] Procedure Note Geo Mata MD - 02/25/2024 This is a summary report. The complete report is available in thepatient's medical record. If you cannot access the medical record, pleasecontact the sending organization for a detailed fax or copy. Full field digital screening tomosynthesis mammography, reviewed with CADand compared to previous. The breasts are composed of fatty andfibroglandular tissue. No suspicious mass, architectural distortion orsuspicious calcifications are identified. IMPRESSION: : No mammographic evidence of malignancy. BIRADS 1-Negative; N. Breast density: The breasts have scattered areas of fibroglandulardensity. 5 year breast cancer risk assessment 2.0 % Lifetime breast cancer risk assessment 4.8 % Breast cancer risk category Low (<15%) Location: [facility], [address] [place] [address], [address], [phone] Adolfo Campbell DO IMG XR PROCEDURES Final Resul t * Urine Albumin Creatinine Ratio (11/07/2023) Pathologist Counts include 234 beds at the [facility] Urine Albumin Creatinine Ratio Abstracted [facility] Provider [place] HEALTH MAINTENANCE Final Result * Diabetes Eye Exam (05/13/2023) Pathologist [facility] Diabetes: Annual Retina Eye Exam Abstracted Result [facility] Provider [place] HEALTH MAINTENANCE Final Result * DXA BONE DENSITY STUDY 1+ SITS AXIAL SKEL (03/12/2022 10:13 AM EST) Anatomical Region Laterality Modality Bone Densitometr y 07/19/2021 2:25 PM EDT Narrative 03/12/2022 5:49 PM EST BONE DENSITY SCAN (DEXA): FINDINGS: Lumbar Spine T-score is 0.1. ?? (SD relative to 20-29 y/o adult) Z-score is 23. ??(SD relative to age matched peers) This is considered normal by WHO criteria. Left Hip T-score is -2.1. Z-score is -0.2. This is considered osteopenia by WHO criteria. Comparison exam(s): 11/01/2015. ??5.8% increase in lumbar spine bone mineral density, statistically significant the 95% confidence level. ??No statistically significant change in left hip bone mineral density. IMPRESSION: IMPRESSION: Osteopenia by WHO criteria. This patient has a 18% risk of major osteoporotic fracture and a 3.6% risk of hip fracture over the next 10 years. (World Health Organization Fracture Risk Assessment) The [facility] Department of Internal Medicine recommends using National Osteoporosis Foundation (NOF) guidelines in treatment decisions related to osteoporosis. NOF guidelines suggest considering treatment for postmenopausal women and men aged 50 or older presenting with the following: History of hip or vertebral fracture. T-score = -2.5 (DXA) at the femoral neck, total hip, or spine, after appropriate evaluation to exclude secondary causes. Low bone mass (T-score between -1.0 and -2.5 at the femoral neck or spine) AND a 10-year probability of a hip fracture = 3% OR a 10-year probability of a major osteoporosis-related fracture = 20% based on the [place]-adapted WHO algorithm Please note that all treatment decisions require clinical judgment and consideration of individual patient factors, including patient preferences, co-morbidities, previous drug use, risk factors not captured in the FRAX model (e.g., frailty, falls, vitamin D deficiency, increased bone turnover, interval significant decline in bone density) and possible under- or over-estimation of fracture risk by FRAX. Optional alternative screening schedule based on fawad Rico., [facility] May 17, 2011 for patients with osteopenia (based on hip BMD T-score) is as follows: * ??advanced osteopenia (T scores -2.00 to -2.49), BMD testing every year * ??moderate osteopenia (T scores -1.50 to -1.99), BMD testing every 5 years mild osteopenia or normal BMD (T scores -1.50 and higher), BMD testing every 15 years Procedure Note Ninoska Jennings MD - 06/03/2023 BONE DENSITY SCAN (DEXA): FINDINGS: Lumbar Spine T-score is 0.1. (SD relative to 20-29 y/o adult) Z-score is 23. (SD relative to age matched peers) This is considered normal by WHO criteria. Left Hip T-score is -2.1. Z-score is -0.2. This is considered osteopenia by WHO criteria. Comparison exam(s): 11/01/2015. 5.8% increase in lumbar spine bonemineral density, statistically significant the 95% confidence level. No statisticallysignificant change in left hip bone mineral density. IMPRESSION: IMPRESSION: Osteopenia by WHO criteria. This patient has a 18% risk of majorosteoporotic fracture and a 3.6% risk of hip fracture over the next 10 years. (World HealthOrganization Fracture Risk Assessment) The [facility] Department of Internal Medicine recommendsusing National Osteoporosis Foundation (NOF) guidelines in treatment decisions related toosteoporosis. NOF guidelines suggest considering treatment for postmenopausal women and menaged 50 or older presenting with the following: History of hip or vertebral fracture. T-score = -2.5 (DXA) at the femoral neck, total hip, or spine, afterappropriate evaluation to exclude secondary causes. Low bone mass (T-score between -1.0 and -2.5 at the femoral neck or spine)AND a 10-year probability of a hip fracture = 3% OR a 10-year probability of a majorosteoporosis-related fracture = 20% based on the [place]-adapted WHO algorithm Please note that all treatment decisions require clinical judgment andconsideration of individual patient factors, including patient preferences, co- morbidities,previous drug use, risk factors not captured in the FRAX model (e.g., frailty, falls, vitaminD deficiency, increased bone turnover, interval significant decline in bone density) andpossible under- or over-estimation of fracture risk by FRAX. Optional alternative screening schedule based on sunday Rico al., NEJMJanuary 2011 for patients with osteopenia (based on hip BMD T-score) is as follows: * advanced osteopenia (T scores -2.00 to -2.49), BMD testing every year * moderate osteopenia (T scores -1.50 to -1.99), BMD testing every 5years mild osteopenia or normal BMD (T scores -1.50 and higher), BMD testingevery 15 years Adolfo Campbell DO IMG DXA PROCEDURES Final Resu lt * Colonoscopy (10/15/2018) [facility] Colonoscopy Abstracted, no interpretation Anatomical Region Laterality Modality Other Historical Provider HEALTH MAINTENANCE Final Result * Hepatitis C Screening (10/15/2012) [facility] Hepatitis C Screening Abstracted [facility] Provider HEALTH MAINTENANCE Final Result from Last 3 Months or Most Recently Relevant to Health Maintenance Insurance [employer] Care Teams Pharmacy Intern Relationship Specialty Start Date End Date Kathryn Romero MD [address] [place] [id number] PCP - General Internal Medicine 04/16/24
== END 2024-08-04 10:43 | disposition home or self-care (01) ==
LOC: HO.RHES 10:00
PROVIDERS: PCP Internal Medicine; Visit Provider Internal Medicine Rheumatology
DX: M81.0 Age-related osteoporosis without current pathological fracture (principal); R29.898 Other symptoms and signs involving the musculoskeletal system
CPT/HCPCS: 99214

== ENCOUNTER 2024-08-04 10:00 | Outpatient (REF) | payer OTHER, SELFPAY ==
[2023-05-24 16:49] VITALS: BP 116/62; BP 168/68; BMI 34.4
--- OUTSIDE RECORDS SUMMARY | 2024-08-04 13:11 | XMS_ITS | Encounter Summary ---
Author Organization [facility] Address [address] [place] [address] Phone Care Team Providers Care Staff Genetic Counselor Name Role Phone Kathryn Romero MD Primary Care Provider [phone] Encounter Details Date Type Department Care Team (Late Contact Info) Description 05/01/2022 Telephone [facility] [address] [facility] [address] [place] [address] Marcela Lewis MD Social History [...] Visit [facility] [address] [facility] [address] [place] [address] Camilla Hwang ARNP [address] [facility] [address] [place] [address] documented as of this encounter Visit Diagnoses Not on filedocumented in this encounter Care Teams Staff Genetic Counselor Relationship Specialty Start Date End Date Kathryn Romero MD PCP - General Internal Medicine 07/15/23 documented as of this encounter
--- OUTSIDE RECORDS SUMMARY | 2024-08-04 13:11 | XMS_ITS | Clinical Summary ---
Author Organization [facility] Address [address] [place] [phone] Phone Care Team Providers Care Mine Car Mechanic Name Role Phone Kathryn Romero MD Primary Care Provider [phone] Allergies Active Allergy Reactions Criticality Noted Date Comments [place] 07/15/2020 Fd&C Blue #1 ([place] Blue) Hives 2006 Grass Pollen Standardized Ext [...] Office Visit [facility] [address] [address] Camilla Hwang ARNP Chronic kidney disease, stage 2 (mild) (Primary Dx); Proteinuria, not otherwise specified; Essential hypertension; Vitamin D deficiency, not otherwise specified; Hypo-osmolality and hyponatremia 06/27/2024 Orders Only [facility] [address] [address] Camilla Hwang ARNP Proteinuria, not otherwise specified; [...] Visit [facility] [address] [address] Camilla Hwang ARNP [address] [address] Health Maintenance Due Date Last Done Comments [...] 11:40 AM EDT) Protein, Ur 32 mg/dL [facility] Urine Protein/Creati nine Ratio 0.91(H) <=0.20 mg/mg creat [facility] Creatinine, Urine 35.0 mg/dL [facility] Urine (Urine, Clean Catch) 07/08/2024 11:40 AM EDT 07/08/2024 1:[address] [facility] URINE ORDERABLES Final Result [facility] [address] [place] [address] * (ABNORMAL) EXT RESULT ENTRY (12/01/2020) Sodium 140 137 - 147 Potassium 4.2 3.4 - 5.5 Chloride 104 99 - 108 Bicarbonate (CO2) 29 22 - 30 mmol/L Anion Gap 7 <=30 MMOL/L Glucose 109 60 - 200 BUN 12 4 - 21 mg/dL Creatinine 0.67 0.50 - 1.10 mg/dL Calcium 8.7 8.7 - 10.7 mg/dL eGFR Non-Afr [place] >60 Hemoglobin A1C 8.3(A) 4.0 - 6.0 [...] Health Maintenance Insurance UNICARE [employer] Care Teams Mine Car Mechanic Relationship Specialty Start Date End Date Kathryn Romero MD PCP - General Internal Medicine 07/15/23
--- OUTSIDE RECORDS SUMMARY | 2024-08-04 13:11 | XMS_ITS | Clinical Summary ---
Author Organization [facility] Address [address] [place] [address] Phone Care Team Providers Care Tennis Net Maker Name Role Phone Kathryn Romero MD Primary Care Provider [phone] Allergies Active Allergy Reactions Criticality Noted Date Comments Amaranth Hives 09/05/2006 [place] Derived Rash 07/15/2020 D And C Yellow [...] 05/14/2017 Overview (05/25/2024): DX:Coronary artery disease involving kletsel dehe [place] coronary artery of kletsel dehe [place] heart without angina pectoris - Cath in [...] cath in July 2022 showing again severe k[place] four-vessel disease with patent vein graft to [...] she strongly bring this up with her regional property manager as this is being done for worsening A1c and not for cardiac reasons. For now, she will continue 10 mg of Jardiance but will plan to discuss the dosing change with her regional property manager. Continue current spironolactone, Entresto, carvedilol. She was [...] Gastroenterology - [address] [facility] [address] [place] [phone] Conchis Carranza MD Special Procedure 06/05/2024 Telephone [facility]iology [facility] [address] [facility] [address] [place] [address] Malorie Cobos MD Med Refill (Entresto refill ) 05/25/2024 9:20 AM EST Office Visit [facility] [address] [facility] [address] [place] [address] Malorie Cobos MD Coronary artery disease involving k[place]sel dehe [place] coronary artery of k[place]sel dehe [place] heart without angina pectoris (Primary Dx); History of transcatheter aortic valve replacement (TAVR); Ischemic cardiomyopathy 05/19/2024 1:00 PM EST Office Visit Endocrinology [address] [address] Joaquina Rosado PA Type 2 diabetes mellitus [...] tubular adenoma. OTHER SURGICAL HISTORY 10/04/2022 PROCEDURE: VT REPLACE AORTIC VALVE PERQ FEMORAL ARTRY APPROACH [...] antony cardiomyopathy Coronary artery disease invo lving kletsel dehe [place] coronary artery of [place] heart without angina pectoris 05/14/2017 DX:Coronary artery disea se involving kletsel dehe [place]un coronary artery of k[place] heart without angina pectoris Ankle weakness 06/16/2012 [...] Info) Description 08/14/2024 12:00 PM EDT Appointment [facility] Endoscopy [address] [place] [phone] Conchis Carranza MD [address] [address] 10/16/2024 11:30 AM EDT Office Visit Adult Medicine [place] - [address] [phone] Kathryn Romero MD [address] [place] [address] 03/01/2025 11:00 AM EST Ancillary Procedure [facility] [address] [address] 03/15/2025 10:30 AM EST Appointment Radiology Department - [address] [phone] Health Maintenance Due Date Last Done Comments [...] 9:38 AM EST Coronary artery disease involving kletsel dehe wintun coronary artery of kletsel dehe wintun heart without angina pectoris POC GLUCOSE Routine 05/19/2024 1:21 PM EST Type 2 diabetes mellitus with cataract ([facility]) COMPREHENSIVE METABOLIC PANEL Routine 04/24/2024 9:53 AM EST Essential hypertension, benign HEMOGLOBIN A1C Routine 04/24/2024 9:53 AM EST Type 2 diabetes mellitus with stage 3a chronic kidney disease, with long-term current use of insulin ([facility]) LIPID PANEL WITH REFLEX TO [...] LAB CHEMISTRY METHOD 07/08/2024 2:47 PM EDT [facility] Prot/Creat, Ur 0.91(H) <=0.20 mg/mg creat LAB CHEMISTRY METHOD 07/08/2024 2:47 PM EDT [facility] Creatinine, Urine 35.0 mg/dL LAB CHEMISTRY METHOD 07/08/2024 2:47 PM EDT [facility] Urine Urine specimen obtained by clean catch procedure / Unknown Non-blood Collection / Unknown 07/08/2024 11:40 AM EDT 07/08/2024 11:43 AM EDT Camilla Hwang [facility] URINE ORDERABLES Final R esult [facility] [address] [place] [address], * ECG 12 lead (05/25/2024 9:38 AM EST) Ventricular Rate ECG 81 BPM GEMUSE Atrial Rate 81 BPM GEMUSE P-R Interval 212 ms GEMUSE QRS Duration 162 ms GEMUSE Q-T Interval 440 ms GEMUSE QTc 511 ms GEMUSE P Wave [place] 47 degrees GEMUSE R [place] 6 degrees GEMUSE T [place] -176 degrees GEMUSE ECG Interpretation Sinus rhythm [...] manually resulted (05/19/2024 1:21 PM EST) Pathologist [facility] Glucose POC 180 mg/dL Blood Capillary blood specimen / Unknown 05/19/2024 1:21 PM EST Joaquina MONTENEGRO POINT OF CARE TEST ENTER/ED IT ORDERABLES Final Result * (ABNORMAL) Lipid panel with reflex to direct LDL (04/24/2024 9:53 AM EST) [facility] Cholesterol 172 0 - 200 mg/dL LAB CHEMISTRY METHOD 04/24/2024 12:02 PM [facility] Triglycerides 220(H) 0 - 150 mg/dL LAB CHEMISTRY METHOD 04/24/2024 12:02 PM [facility] HDL 53 >=40 mg/dL LAB CHEMISTRY METHOD 04/24/2024 12:02 PM [facility] LDL Calculated 75 0 - 100 mg/dL LAB CHEMISTRY METHOD 04/24/2024 12:02 PM [facility] VLDL Cholesterol Aman 44 mg/dL LAB CHEMISTRY METHOD 04/24/2024 12:02 PM [facility] Non HDL Chol. (LDL+VLDL) 119 <145 mg/dL LAB CHEMISTRY METHOD 04/24/2024 12:02 PM [facility] Chol/HDL Ratio 3.2 0.0 - 4.4 LAB CHEMISTRY METHOD 04/24/2024 12:02 PM EST [facility] Blood Venous blood specimen / Unknown Venipuncture / Unknown 04/24/2024 9:53 AM EST 04/24/2024 9:53 AM EST us Kathryn Romero MD LAB BLOOD ORDERABLES Final Resul t Performing Organization Address City/[facility]/ZIP Co de Phone Number [facility] [address] [place] [address], [place] [phone] * (ABNORMAL) Hemoglobin A1c (04/24/2024 9:53 AM EST) Hemoglobin A1C 7.6(H) <6.5 % LAB CHEMISTRY METHOD 04/24/2024 2:35 PM EST [facility] Mean Bld Glu Estim. 171 mg/dL LAB CHEMISTRY METHOD 04/24/2024 2:35 PM [facility] Blood Venous blood specimen / Unknown Venipuncture / Unknown 04/24/2024 9:53 AM EST 04/24/2024 9:53 AM EST us Kathryn Romero MD LAB BLOOD ORDERABLES Final Resul t Performing Organization Address [facility]/ZIP Co de Phone Number [facility] [address] [place] [address], [place] [phone] * Comprehensive metabolic panel (04/24/2024 9:53 AM EST) Sodium 139 133 - 145 mmol/L LAB CHEMISTRY METHOD 04/24/2024 12:02 PM EST [facility] Potassium 4.8 3.5 - 5.5 mmol/L LAB CHEMISTRY METHOD 04/24/2024 12:02 PM [facility] Chloride 105 96 - 110 mmol/L LAB CHEMISTRY METHOD 04/24/2024 12:02 PM EST [facility] CO2 30 21 - 32 mmol/L LAB CHEMISTRY METHOD 04/24/2024 12:02 PM [facility] Anion Gap 4 3 - 11 LAB CHEMISTRY METHOD 04/24/2024 12:02 PM [facility] Glucose 98 70 - 100 mg/dL LAB CHEMISTRY METHOD 04/24/2024 12:02 PM [facility] BUN 16 5 - 25 mg/dL LAB CHEMISTRY METHOD 04/24/2024 12:02 PM [facility] Creatinine 0.99 0.50 - 1.10 mg/dL LAB CHEMISTRY METHOD 04/24/2024 12:02 PM [facility] eGFR 60 >=60 mL/min/1. 73m2 LAB CHEMISTRY METHOD 04/24/2024 12:02 PM [facility] Comment:Calculation based on the??Chronic Kidney Disease Epidemiology Collaboration (CKD-EPI) equation refit??without adjustment for race. BUN/Creatinine Ratio 16.2 LAB CHEMISTRY METHOD 04/24/2024 12:02 PM [facility] Calcium 9.4 8.5 - 10.5 mg/dL LAB CHEMISTRY METHOD 04/24/2024 12:02 PM [facility] AST (SGOT) 18 10 - 42 unit/L LAB CHEMISTRY METHOD 04/24/2024 12:02 [facility] ALT (SGPT) 24 10 - 60 unit/L LAB CHEMISTRY METHOD 04/24/2024 12:02 PM [facility] Alkaline Phosphatase 75 42 - 121 unit/L LAB CHEMISTRY METHOD 04/24/2024 12:02 PM [facility] Total Protein 7.0 6.0 - 8.0 g/dL LAB CHEMISTRY METHOD 04/24/2024 12:02 PM [facility] Albumin 3.7 3.2 - 5.0 g/dL LAB CHEMISTRY METHOD 04/24/2024 12:02 PM [facility] Total Bilirubin 0.3 0.0 - 1.4 mg/dL LAB CHEMISTRY METHOD 04/24/2024 12:02 PM EST [facility] Blood Venous blood specimen / Unknown Venipuncture / Unknown 04/24/2024 9:53 AM EST 04/24/2024 9:53 AM EST us Kathryn Romero MD LAB BLOOD ORDERABLES Final Resul t [facility] ([facility]) [facility] [address] [place] [address], * SCREENING MAMMOGRAPHY BI 2-VIEW BREAST INC [...] Breast cancer risk category Low (<15%) Location: [facility], [address] [place] [address], [address], [phone] Procedure Note Geo Mata MD - 02/25/2024 [...] Breast cancer risk category Low (<15%) Location: [facility], [address] [place] [address], [address], [phone] Adolfo Campbell DO IMG XR PROCEDURES Final Resul t * Urine Albumin Creatinine Ratio (11/07/2023) Pathologist [facility] Urine Albumin Creatinine Ratio Abstracted [facility] Provider [place] HEALTH MAINTENANCE Final Result * Diabetes Eye Exam (05/13/2023) Pathologist [facility] Diabetes: Annual Retina Eye Exam Abstracted Result [facility] Provider [place] HEALTH MAINTENANCE Final Result * DXA BONE [...] (World Health Organization Fracture Risk Assessment) [facility] Department of Internal Medicine recommends using National [...] screening schedule based on fawad Rico., [facility] May 17, 2011 for patients [...] years. (World HealthOrganization Fracture Risk Assessment) [facility] Department of Internal Medicine recommendsusing National Osteoporosis [...] PROCEDURES Final Resu lt * Colonoscopy (10/15/2018) [facility] Colonoscopy Abstracted, no interpretation Anatomical Region Laterality Modality Other Historical Provider HEALTH MAINTENANCE Final Result * Hepatitis C Screening (10/15/2012) [facility] Hepatitis C Screening Abstracted [facility] Provider HEALTH MAINTENANCE Final Result from Last 3 Months or Most Recently Relevant to Health Maintenance Insurance [employer] Care Teams Tennis Net Maker Relationship Specialty Start Date End Date Kathryn Romero MD [address] [place] [phone] PCP - General Internal Medicine 04/16/24
[2024-08-04 19:29] LABS: TSH reflex Free T4 2.66 uIU/mL (0.32-4.0); Vitamin D 25-OH Total 35.6 ng/mL (>30)
[2024-08-04 19:36] LABS: Parathyroid Hormone Intact 51.8 pg/mL (8.7-77.1)
== END 2024-08-04 10:01 | disposition home or self-care (01) ==
LOC: HO.HKASLDS 10:00
PROVIDERS: PCP Internal Medicine; Visit Provider Internal Medicine Rheumatology
DX: M81.0 Age-related osteoporosis without current pathological fracture (principal); R29.898 Other symptoms and signs involving the musculoskeletal system
CPT/HCPCS: 36415; 82306; 83970; 84443

== ENCOUNTER 2024-09-09 08:59 | Outpatient (REF) | payer OTHER, SELFPAY ==
[2023-05-24 16:49] VITALS: BP 116/62; BP 168/68; BMI 34.4
--- NOTE | ~2024-09-09 | MM_ITS ---
EXAMINATION: DXA BONE DENSITY AXIAL HISTORY: M81.0 - Age-related osteoporosis without current pathological fracture TECHNIQUE: [employer] Dual energy absorptiometry (DEXA) of the lumbar spine, total left hip, and femoral neck was performed. COMPARISON: There are no prior studies for comparison. FINDINGS: The bone mineral density of the lumbar spine is 1.217 with a T-score of 0.3, and a Z-score of 1.2. This is indicative of normal bone mineral density. The bone mineral density of the left total hip is 0.834 with a T-score of -1.4, and a Z-score of -0.3. This is indicative of osteopenia. The bone mineral density of the left femoral neck is 0.723 with a T-score of -2.3, and a Z-score of -0.9. This is indicative of osteopenia. FRACTURE RISK: The FRAX index suggests a risk of major osteoporotic fracture of 20.5%, and of hip fracture 5.2%. MM/XR DEXA axial skeleton IMPRESSION: Based on bone mineral density, and according to World Health Organization (WHO) criteria, the diagnosis is consistent with osteopenia. All bone density values are in grams per centimeter squared (g/cm2). Statistically, 68% of repeat scans fall within 1 SD (+/- 0.010 g/cm2 for AP spine L1-L4) and 1 SD (+/- 0.012 g/cm2 for femur total) FRAX is a trademark of the [employer]'s [place] for Metabolic Bone Disease, a World Health Organization (WHO) Collaborating Center. Electronically signed by: Dion Aldrich MD 09/09/2024 10:07 AM EDT
--- OUTSIDE RECORDS SUMMARY | 2024-09-09 09:28 | XMS_ITS | Clinical Summary ---
Author Organization [facility] Address [address] [address] Phone Care Team Providers Care Healthcare Representative Name Role Phone Kathryn Romero MD Primary Care Provider [phone] Allergies Active Allergy Reactions Criticality Noted Date Comments Tamms 07/15/2020 Fd&C Blue #1 ([place] Blue) Hives 2006 Grass Pollen Standardized Ext [...] 2 (two) times a day with meals 5 Active ASPIRIN 81 PO Take 1 tablet by mouth 1 (one) time each day Active dorzolamide-misa olol (COSOPT) 22.3-6.8 MG/ML ophthalmic solution INSTILL 1 DROP INTO RIGHT EYE TWICE A DAY DIRECTED 1 Active atorvastatin (LIPITOR) 40 MG tablet Take 1 tablet (40 mg total) by mouth 1 (one) time each day 90 tablet 3 2 Active HumaLOG KWIKPEN 100 UNIT/ML solution pen-injector PLEASE SEE ATTACHED FOR DETAILED DIRECTIONS 3 Active metFORMIN (GLUCOPHAGE) 500 MG tabletIndicatio ns:Proteinuria, not otherwise specified,Renal disorder due to type 2 diabetes mellitus <Diabetic nephropathy> (HCC) Take 2 tablets (1,000 mg total) by mouth in the morning and 2 tablets (1,000 mg total) in the evening. 2 in the am, 2 tabs in the pm daily. 360 tablet 3 4 Active sacubitril-vals guillermo (Entresto) 49-51 MG per tablet Take 1 tablet by mouth in the morning and 1 tablet in the evening. Active Empagliflozin (Jardiance) 10 MG tablet Take 10 mg by mouth 1 (one) time each day in the morning Active spironolactone (ALDACTONE) 25 MG tablet Take 25 mg by mouth 1 (one) time each day Active Active Problems Problem Noted Date Diagnosed [...] Office Visit [facility] [address] [address] Camilla Hwang ARNP Chronic kidney disease, stage 2 (mild) (Primary Dx); Proteinuria, not otherwise specified; Essential hypertension; Vitamin D deficiency, not otherwise specified; Hypo-osmolality and hyponatremia 06/27/2024 Orders Only [facility] [address] [address] Camilla Hwang ARNP Proteinuria, not otherwise specified; Essential hypertension; Vitamin D deficiency, not otherwise specified; Hypo-osmolality and hyponatremia from Last 3 Months Immunizations Immunization Administration Dates Next Due Influenza Split High [...] [facility] Visit [facility] [address] [phone] Camilla Hwang ARNP [address] [address] Health Maintenance Due Date Last Done Comments Breast Cancer Screening 1950 Colorectal Cancer Screening: Annual FOBT 1999 Colorectal Cancer Screening: Colonoscopy 1999 Colorectal Cancer Screening: Sigmoidoscopy 1999 Hepatitis B Vaccine (1 of 3 - Risk 3-dose series) 2010 Diabetes: Ophthalmology Exam 05/29/2020 Diabetes: Pedal Pulse Checked 05/29/2020 Diabetes: Sensory Foot Exam 05/29/2020 Diabetes: Visual Foot Exam 05/29/2020 Diabetes: Hemoglobin A1C 07/23/20242 024, 10/20/2021, 12/01/2020, Additional history exists Pneumococcal Vaccine: 50+ Years Completed 01/23/2017, 12/21/2015, 12/10/2012, Additional history exists Pneumococcal Vaccine: Peds ( 0 to 5 Years) and At-Risk Patients (6 to 49 Years) Discontinued 01/23/2017, 12/21/2015, 12/10/2012, Additional history exists Influenza [...] 11:40 AM EDT) Protein, Ur 32 mg/dL [facility] Urine Protein/Creati nine Ratio 0.91(H) <=0.20 mg/mg creat [facility] Creatinine, Urine 35.0 mg/dL [facility] Urine (Urine, Clean Catch) 07/08/2024 11:40 AM EDT 07/08/2024 1:38 PM EDT Camilla Hwang [facility] URINE ORDERABLES Final Result JAIL[facility] [address] [place] [address] * (ABNORMAL) EXT RESULT ENTRY (12/01/2020) Sodium 140 137 - 147 Potassium 4.2 3.4 - 5.5 Chloride 104 99 - 108 Bicarbonate (CO2) 29 22 - 30 mmol/L Anion Gap 7 <=30 MMOL/L Glucose 109 60 - 200 BUN 12 4 - 21 mg/dL Creatinine 0.67 0.50 - 1.10 mg/dL Calcium 8.7 8.7 - 10.7 mg/dL eGFR Non-Afr [place]z >60 Hemoglobin A1C 8.3(A) 4.0 - 6.0 Creatinine, Urine Random 99 mg/dL Alb/Creat Ratio, Ur 72.5 mg/g Creat Microalbumin Urine Random (External Result Entry) 71.8 Triglycerides 208(A) 40 - 160 Cholesterol 141 0 - 200 HDL 50 35 - 70 MG/DL LDL Calculated 50 0 - 160 mg/dL 12/01/2020 us Historical Provider LAB BLOOD ORDERABLES Cindy l Result from Last 3 Months or Most Recently Relevant to Health Maintenance Insurance [employer] Care Teams Healthcare Representative Relationship Specialty Start Date End Date Kathryn Romero MD PCP - General Internal Medicine 07/15/23
--- OUTSIDE RECORDS SUMMARY | 2024-09-09 09:28 | XMS_ITS | Clinical Summary ---
Author Organization [facility] Address [address] [place] [address] Phone Care Team Providers Care Dressing Room Porter Name Role Phone Kathryn Romero MD Primary Care Provider [phone] Allergies Active Allergy Reactions Criticality Noted Date Comments Amaranth Hives 09/05/2006 [place] Derived Rash 07/15/2020 D And C Yellow [...] tablet Take 1 tablet by mouth daily. Active cholecalciferol (VITAMIN D-3) 25 mcg (1,000 unit) capsule Take 1 Capsule by mouth daily. Active dextrose 40 % gel Take 15 g by mouth as needed for Other (hypoglycemia). Active docusate sodium (COLACE) 100 mg capsule Take 100 mg by mouth 2 times daily. Active pen needle, diabetic 32 gauge x needle Inject 4 Devices into the skin daily. Active magnesium oxide (MAG-OX) 400 mg magnesium tablet Active nystatin (MYCOSTATIN) ointment Apply up to BID prn itching 024 2024 Active ONETOUCH ULTRASOFT LANCETS MISC 1 Each by Does not apply route 5 times daily. Active prednisoLONE acetate (PRED FORTE) 1 % ophthalmic suspension Place 1 Drop into the right eye twice a week. 018 Active amoxicillin (AMOXIL) 500 mg tablet Take 4 tablets (2,000 mg total) by mouth 1 (one) time if needed (1 hour prior to dental procedures). 12 tablet 1 Active insulin glargine (Lantus Solostar U-100 Insulin) 100 unit/mL (3 mL) injection pen INJECT 90 UNITS SUBCUTANEOUSLY AT BEDTIME 45 mL 11 Active Additional Information Patient taking differently: Every morning, Reported on 08/14/2024 carvediloL (COREG) 12.5 mg tablet TAKE 1 TABLET BY MOUTH 2 TIMES DAILY (WITH MEALS) FOR 90 DAYS. 180 tablet 1 Active Ozempic 2 mg/dose (8 mg/3 mL) injection penIndications: Type 2 diabetes mellitus with other diabetic kidney complication ([facility] V24, [facility] V28) INJECT 2 MG INTO THE SKIN EVERY 7 DAYS 3 mL 5 Active empagliflozin (JARDIANCE) 25 mg tablet Take 1 tablet (25 mg total) by mouth 1 (one) time each day. 90 tablet 1 Active sacubitriL-vals guillermo (ENTRESTO) 49-51 mg per tablet Take 1 tablet by mouth 2 (two) times a day. 180 each 3 025 2025 Active spironolactone (ALDACTONE) 25 mg tablet Take 1 tablet (25 mg total) by mouth 1 (one) time each day. 90 each 3 025 2025 Active dorzolamide-misa oloL (COSOPT) 22.3-6.8 mg/mL ophthalmic solution Administer 1 drop into the right eye 2 (two) times a day. Active empagliflozin (Jardiance) 10 mg tablet Take 1 tablet (10 mg total) by mouth 1 (one) time each day in the morning. Active OneTouch Ultra Test test stripIndication s:Type 2 diabetes mellitus with other diabetic kidney complication ([facility] V24, [facility] V28) USE TO TEST 4 TIMES DAILY 400 strip 1 025 Active atorvastatin (LIPITOR) 40 mg tablet TAKE 1 TABLET BY MOUTH EVERY DAY 90 tablet 1 025 Active polyethylene glycol (Golytely) 236-22.74-6.74 -5.86 gram solution Take 4L by mouth once for one dose. May substitue any PEG. Starting at 6PM the night before your procedure drink 1 8oz glasses at your own pace until you complete half of the gallon. Finish 2nd half of the gallon 5 hours before your procedure. 4000 mL 025 Active bisacodyL (DULCOLAX) 5 mg EC tablet Take 2 tablets by mouth right before beginning bowel prep. See instructions provided by the office 2 tablet 025 Active triamcinolone (KENALOG) 0.025 % ointment APPLY TWICE A DAY FOR 28 DAYS 30 g 2 025 Active BD Selina 2nd Gen Pen Needle 32 gauge x /32 needleIndicatio ns:Type 2 diabetes mellitus with other diabetic kidney complication ([facility] V24, [facility] V28) USE 4 TIMES A DAY 200 each 6 025 Active metFORMIN (GLUCOPHAGE) 500 mg tabletIndicatio ns:Type 2 diabetes mellitus with other diabetic kidney complication ([facility] V24, [facility] V28) TAKE 2 TABLETS BY MOUTH TWICE A DAY WITH MEALS 360 tablet 1 025 Active insulin aspart (NovoLOG Flexpen U-100 Insulin) 100 unit/mL (3 mL) injection pen Inject 8-15 Units under the skin 3 (three) times a day before meals. 100-149: 8 units; 150-200: 9 units; 201-250: 10 units; 251-300: 11 units; 301-350: 12 units; 351-400: 13 units; 401-450: 14 units; 451-500: 15 units 025 Active insulin aspart (NovoLOG Flexpen U-100 Insulin) 100 unit/mL (3 mL) injection pen Inject 8-15 Units into the skin 3 times daily (before meals). Inject 3 times a day with meals per scale: 100-149: 8 units; 150-200: 9 units; 201-250: 10 units; 251-300: 11 units; 301-350: 12 units; 351-400: 13 units; 401-450: 14 units; 451-500: 15 units 024 2024 Discontinued pen needle, diabetic (Insupen Pen Needle) 32 gauge x 5/32 needle Use to inject insulin 5 times daily 023 2024 Discontinued(D uplicate order) metFORMIN (GLUCOPHAGE) 500 mg tablet TAKE 2 TABLETS BY MOUTH TWICE A DAY WITH MEALS. 024 2024 Discontinued insulin aspart (NovoLOG Flexpen U-100 Insulin) 100 unit/mL (3 mL) injection pen INJECT 3 TIMES A DAY WITH MEALS PER SCALE: 100-149: 6 UNITS 150-200: 7 UNITS 201-250: 8 UNITS 251-300: 9 UNITS 301-350: 10 UNITS 351-400: 11 UNITS 401-450: 12 UNITS 451-500: 13 UNITS 45 mL 1 025 2024 Discontinued Active Problems Problem Noted Date Diagnosed Date Type 2 diabetes mellitus, wi th long-term current use of insulin ([facility] V24, [facility] V28) 08/14/2024 Aortic stenosis 08/14/2024 History of coronary artery bypass graft 08/15/19 25 Cutaneous candidiasis 02/12/2024 Overview (03/12/2024): Last Assessment [...] AVR could not be performed surgically in 2018 - She went on to develop severe [...] 05/14/2017 Overview (05/25/2024): DX:Coronary artery disease involving huslia coronary artery of huslia heart without angina pectoris - Cath in March 2017 for stable anginal symptoms that were progressing showed severe three-vessel disease with several chronic total occlusions - Status post CABG in 2017 with KABA to the LAD, vein graft [...] cath in July 2022 showing again severe huslia four-vessel disease with patent vein graft to [...] she strongly bring this up with her simplex operator as this is being done for worsening A1c and not for cardiac reasons. For now, she will continue 10 mg of Jardiance but will plan to discuss the dosing change with her simplex operator. Continue current spironolactone, Entresto, carvedilol. She was happy to hear that her ejection fraction had improved. 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 - [facility] [address] [facility] [address] [place] [phone] Malorie Cobos MD Med Refill (Entresto) 08/17/2024 Telephone Gastroenterology - [address] [phone] Camilla Clark [place] 08/14/2024 12:16 PM EDT Anesthesia Event [facility] Endoscopy [address] [place] [phone] Nora Muñiz MD 08/14/2024 11:02 AM EDT - 08/14/2024 11:59 PM EDT Hospital Encounter [facility] Endoscopy [address] [place] [phone] Conchis Carranza MD Guerin, Erik R, Nora Simon MD History of colon polyps Discharge Disposition: Home or Self Care 06/15/2024 Telephone Gastroenterology - [address] [facility] 299 [facility] [address] [place] [phone] Conchis Carranza MD Special Procedure from Last 3 Months Immunizations Name Administration [...] tubular adenoma. OTHER SURGICAL HISTORY 10/04/2022 PROCEDURE: MA REPLACE AORTIC VALVE PERQ FEMORAL ARTRY APPROACH [...] 2 diabetes mellitus wit h renal manifestations (CMS/HCC V24, [facility]/HCC V28) 10/17/2017 DX:Type 2 diabetes mellitus with renal manifestations (HCC) S/P CABG x 2 07/10/2017 DX:S/P CABG x 2; COMMENT: KABA-LAD, SVG-ramus on 05/2017Dr. Jose Juan Leal Nonrheumatic aortic valve stenosis 08/13/2017 DX:Nonrheumatic aortic valve stenosis Microalbuminuria 08/25/2009 DX:Microalbumin uria; COMMENT: Sees Dr. Lewis Ischemic cardiomyopathy 08/13/2017 DX:Ische antony cardiomyopathy Coronary artery disease invo lving huslia coronary artery of huslia heart without angina pectoris 05/14/2017 DX:Coronary artery disea se involving huslia coronary artery of huslia heart without angina pectoris Ankle weakness 06/16/2012 DX:Ankle weaknes s Aortic stenosis, moderate 03/18/2017 DX:Aor tic stenosis, moderate Glaucoma 11/10/2018 DX:Glaucoma Cataract 11/10/2018 DX:Cataract Type 2 diabetes mellitus wit h cataract ([facility]/HCC V24, [facility] V28) 11/10/2018 DX:Type 2 diabetes mellitus with cataract (HCC) Aortic valve stenosis, severe 03/18/2017 DX :Aortic valve stenosis, severe Family History Medical History Relation Name Comments Other: skin cancer Aunt face and back-lesions removed-maternal Other: CAD with stent Brother 1 Misa alive at 68, amyloidosis Colon polyps Brother [...] Relation Name Status Comments Aunt Brother 1 Misa Brother 2 Bill Brother 3 Husam Father [...] Sign Reading Time Taken Comments Blood Pressure 124/45 08/14/2024 12:54 PM EDT Pulse 72 08/14/2024 12:54 PM EDT Temperature 36.7 ??C (98 ??F) 08/14/2024 12:34 PM EDT Respiratory Rate 20 08/14/2024 12:54 PM EDT Oxygen Saturation 95% 08/14/2024 12:54 PM EDT Inhaled Oxygen Concentration - - Weight 90.7 kg (200 lb) 08/14/2024 11:24 AM EDT Height 160 cm (5' 3 ) 08/14/2024 11:24 AM EDT Body Mass Index 35.43 08/14/2024 11:24 AM EDT Plan of Treatment Upcoming Encounters Date Type Department Care Team (Late st Contact Info) Description 10/16/2024 11:30 AM EDT Office Visit Adult Medicine [address] [phone] Kathryn Romero MD [address] [place] [phone] 03/01/2025 11:00 AM EST Ancillary Procedure [facility] - [address] [facility] Pritesh [address] [place] [phone] 03/15/2025 10:40 AM EST Appointment Radiology Department - [address] [phone] Health Maintenance Due Date Last Done Comments COVID-19 Vaccine (#1) 1955 Hepatitis A Vaccines (1 of 2 - Risk 2-dose series) 1969 Hepatitis B Vaccines (1 of 3 - Risk 3-dose series) 2010 RSV Immunization Adult Patients (1 - Risk 60-74 years 1-dose series) 2010 Depression Screening 04/07/2022 Social Influencers of Health Screening 04/07/2022 Diabetes: Blood Sugar Control Test (HGBA1C) 10/23/2024 04/24/2024, 01/13/2024, 01/13/2024, Additional history exists Diabetes: Annual Urine Albumin-Creatinine Ratio (uACR) 11/06/2024 11/07/2023 Diabetes: Annual GFR (Glomerular Filtration Rate) 04/24/2025 04/24/2024, 01/13/2024, 01/13/2024, Additional history exists Hypertension/CHF/CAD Annual BMP Blood Test 04/24/2025 04/24/2024, 01/13/2024, 01/13/2024, Additional history exists Diabetes: Annual Foot Exam 05/19/2025 05/19/2024 Falls Risk Assessment 08/14/2025 08/14/2024 Diabetes: Annual Retina Eye Exam 08/18/2025 08/18/2024, 08/18/2024, 05/13/2023 Breast Cancer Screening 02/12/2026 02/13/20 24, 02/13/2024, 02/01/2023, Additional history exists DTaP,Tdap,and Td Vaccines (3 - Td or Tdap) 06/19/2028 06/19/2018, 03/09/2008 Cholesterol Screening (Lipid Panel) 04/24/2029 04/24/2024, 11/07/2023, 11/07/2023 Colorectal Cancer Screening: Colonoscopy 08/14/2029 08/14/2024, 10/15/2018, 10/15/2018 Osteoporosis Screening (Bone Density Screening) 03/12/2037 03/12/2022 [...] Procedure Name Priority Date/Time Associated Diagnosis Comments EXTERNAL DIABETIC RETINA EYE EXAM Routine 08/18/2024 12:38 PM EDT COLONOSCOPY Routine 08/14/2024 12:33 PM EDT History of colon polyps TISSUE EXAM Routine 08/14/2024 12:22 PM EDT History of colon polyps EXTERNAL CLINICAL LAB 08/04/2024 EXTERNAL CLINICAL LAB 08/04/2024 PROTEIN AND CREATININE WITH RATIO, URINE Routine 07/08/2024 11:40 AM EDT Chronic kidney disease, stage II (mild) COMPREHENSIVE METABOLIC PANEL Routine 04/24/2024 9:53 AM EST Essential hypertension, benign HEMOGLOBIN A1C Routine 04/24/2024 9:53 AM EST Type 2 diabetes mellitus with stage 3a chronic kidney disease, with long-term current use of insulin ([facility] V24, [facility] V28) LIPID PANEL WITH REFLEX TO DIRECT LDL Routine 04/24/2024 9:53 AM EST Mixed hyperlipidemia SCREENING MAMMOGRAPHY BI 2-VIEW BREAST INC CAD Routine 02/13/2024 10:42 AM EDT Encounter for screening mammogram for malignant neoplasm of breast HM URINE ALBUMIN CREATININE RATIO Routine 11/07/2023 DXA BONE DENSITY STUDY 1+ SITS AXIAL SKEL Routine 03/12/2022 10:13 AM EST Other specified disorders of bone density and structure, unspecified site HEPATITIS C SCREENING Routine 10/15/2012 from Last 3 Months or Most Recently Relevant to Health Maintenance Results * External Diabetic Retina Eye Exam Report (08/18/2024 12:38 PM EDT) Anatomical Region Laterality Modality Ultrasound us Historical Provider MD MUNGUIA US PROCEDURES Final R esult * COLONOSCOPY Anesthesia - MAC; [facility] ENDOSCOPY (08/14/2024 12:33 PM EDT) Anatomical Region Laterality Modality Endoscopy 08/14/2024 12:0 1 PM EDT Impressions 08/14/2024 12:34 PM EDT - The examined portion of the ileum was normal. ? - One 3 mm polyp in the cecum, removed with a cold ? snare. Resected and retrieved. ? - One 4 mm polyp in the ascending colon, removed with ? a cold snare. Resected and retrieved. ? - One 3 mm polyp in the descending colon, removed with ? a cold snare. Resected and retrieved. ? - One 2 mm polyp in the rectum, removed with a cold ? snare. Resected and retrieved. ? - Internal hemorrhoids. ? - The examination was otherwise normal. Recommendation: ?- Await pathology results. ? - Repeat colonoscopy for surveillance based on ? pathology results. Narrative 08/14/2024 12:34 PM EDT [facility] GI Patient Name: Paige Bonds Procedure Date: 08/14/2024 12:01 PM Date of : 1950 Age: 74 Gender: Female Note Status: Finalized Attending MD: Conchis Carranza MD, Procedure Date No Time: 08/14/2024 Procedure: ? Colonoscopy Indications: ? High risk colon cancer surveillance: Personal history ? of non-advanced adenoma, Family history of advanced ? adenomas of the colon in multiple first-degree ? relatives Providers: ? Conchis Carranza MD Referring MD: ?Kathryn Romero MD Medicines: ? Propofol per Anesthesia Complications: ? No immediate complications. Estimated Blood Loss: ? Estimated blood loss: none. Procedure: ? Pre-Anesthesia Assessment: ? - ASA Grade Assessment: III - A patient with severe ? systemic disease. ? After I obtained informed consent, the scope was ? passed under direct vision. Throughout the procedure, ? the patient's blood pressure, pulse, and oxygen ? saturations were monitored continuously.The ? Colonoscope was introduced through the anus and ? advanced to the terminal ileum. The colonoscopy was ? performed without difficulty. The patient tolerated ? the procedure well. The quality of the bowel ? preparation was good. Findings: ?The perianal and digital rectal examinations were ? normal. ? The terminal ileum appeared normal. ? A 3 mm polyp was found in the cecum. The polyp was ? sessile. The polyp was removed with a cold snare. ? Resection and retrieval were complete. ? A 4 mm polyp was found in the ascending colon. The ? polyp was sessile. The polyp was removed with a cold ? snare. Resection and retrieval were complete. ? A 3 mm polyp was found in the descending colon. The ? polyp was sessile. The polyp was removed with a cold ? snare. Resection and retrieval were complete. ? A 2 mm polyp was found in the rectum. The polyp was ? sessile. The polyp was removed with a cold snare. ? Resection and retrieval were complete. ? Internal hemorrhoids were found during retroflexion. ? The hemorrhoids were Grade I (internal hemorrhoids ? that do not prolapse). ? The exam was otherwise without abnormality. Procedure Code(s): ? --- Professional --- ? 99002, Colonoscopy, flexible; with removal of ? tumor(s), polyp(s), or other lesion(s) by snare ? technique Diagnosis Code(s): ? --- Professional --- ? Z86.010, Personal history of colonic polyps ? D12.0, Benign neoplasm of cecum ? D12.2, Benign neoplasm of ascending colon ? D12.4, Benign neoplasm of descending colon ? D12.8, Benign neoplasm of rectum ? Z83.71, Family history of colonic polyps CPT copyright 2020 [employer] [place] [employer]. All rights reserved. The codes documented in this report are preliminary and upon cafe cook review may be revised to meet current compliance requirements. Conchis Carranza MD 08/14/2024 12:34:41 PM This report has been signed electronically.Conchis Carranza MD Number of Addenda: 0 Note Initiated On: 08/14/2024 12:01 PM Scope In: Scope Out: ? Endoscopy Department at [facility] - [address] [place] [address], ? [place] [address] Procedure Note Conchis Carranza MD - 08/14/2024 [facility] GI Patient Name: Paige Bonds Procedure Date: 08/14/2024 12:01 PM Date of : 1950 Age: 74 Gender: Female Note Status: Finalized Attending MD: Conchis Carranza MD, Procedure Date No Time: 08/14/2024 Procedure: Colonoscopy Indications: High risk colon cancer surveillance: Personalhistory of non-advanced adenoma, Family history of advanced adenomas of the colon in multiple first-degree relatives Providers: Conchis Carranza MD Referring MD: Kathryn Romero MD Medicines: Propofol per Anesthesia Complications: No immediate complications. Estimated Blood Loss: Estimated blood loss: none. Procedure: Pre-Anesthesia Assessment: - ASA Grade Assessment: III - A patient with severe systemic disease. After I obtained informed consent, the scope was passed under direct vision. Throughout theprocedure, the patient's blood pressure, pulse, and oxygen saturations were monitored continuously.The Colonoscope was introduced through the anus and advanced to the terminal ileum. The colonoscopy was performed without difficulty. The patient tolerated the procedure well. The quality of the bowel preparation was good. Findings: The perianal and digital rectal examinations were normal. The terminal ileum appeared normal. A 3 mm polyp was found in the cecum. The polyp was sessile. The polyp was removed with a cold snare. Resection and retrieval were complete. A 4 mm polyp was found in the ascending colon. The polyp was sessile. The polyp was removed with acold snare. Resection and retrieval were complete. A 3 mm polyp was found in the descending colon. The polyp was sessile. The polyp was removed with acold snare. Resection and retrieval were complete. A 2 mm polyp was found in the rectum. The polyp was sessile. The polyp was removed with a cold snare. Resection and retrieval were complete. Internal hemorrhoids were found duringretroflexion. The hemorrhoids were Grade I (internal hemorrhoids that do not prolapse). The exam was otherwise without abnormality. Procedure Code(s): --- Professional --- 41848, Colonoscopy, flexible; with removal of tumor(s), polyp(s), or other lesion(s) by snare technique Diagnosis Code(s): --- Professional --- Z86.010, Personal history of colonic polyps D12.0, Benign neoplasm of cecum D12.2, Benign neoplasm of ascending colon D12.4, Benign neoplasm of descending colon D12.8, Benign neoplasm of rectum Z83.71, Family history of colonic polyps CPT copyright 2020 [employer] [place] [employer]. All rights reserved. The codes documented in this report are preliminary and upon cafe cook reviewmay be revised to meet current compliance requirements. Conchis Carranza MD 08/14/2024 12:34:41 PM This report has been signed electronically.Conchis Carranza MD Number of Addenda: 0 Note Initiated On: 08/14/2024 12:01 PM Scope In: Scope Out: Endoscopy Department at [facility] - [address] [place] [phone] IMPRESSION: - The examined portion of the ileum was normal. - One 3 mm polyp in the cecum, removed with a cold snare. Resected and retrieved. - One 4 mm polyp in the ascending colon, removedwith a cold snare. Resected and retrieved. - One 3 mm polyp in the descending colon, removedwith a cold snare. Resected and retrieved. - One 2 mm polyp in the rectum, removed with a cold snare. Resected and retrieved. - Internal hemorrhoids. - The examination was otherwise normal. Recommendation: - Await pathology results. - Repeat colonoscopy for surveillance based on pathology results. us Conchis Carranza MD GI~PROCEDURE ORDERABLES Final Result * Tissue exam (08/14/2024 12:22 PM EDT) Final Diagnosis A. Polyp, cecum, polypectomy: - Tubular adenoma. B. Polyp, ascending colon, polypectomy: - Tubular adenoma. C. Polyp, descending colon, polypectomy: - Tubular adenoma (fragments). D. Polyp, rectum, polypectomy: - Hyperplastic polyp. 08/17/2024 11:15 AM EDT [facility] Gross Description A. Large Intestine, Cecum, polyp: Labeled colon cecum polyp . Received in formalin is a 0.3 cm irregular [place] mucosal tissue fragment which is wrapped in paper and submitted in toto in one cassette, one piece, multiple levels on one slide. B. Large Intestine, Right/Ascending Colon, polyp: Labeled ascending colon polyp . Received in formalin is a 0.3 cm irregular [place] mucosal tissue fragment which is wrapped in paper and submitted in toto in one cassette, one piece, multiple levels on one slide. C. Large Intestine, Left/Descending Colon, polyp: Labeled descending colon polyp . Received in formalin are three irregular [place] mucosal tissue fragments, ranging from 0.1 cm to 0.3 cm in greatest dimension, which are wrapped in paper and submitted in toto in one cassette, three pieces, multiple levels on one slide. D. Large Intestine, Rectum, polyp: Labeled LI rectum polyp . Received in formalin is a 0.2 cm irregular [place] mucosal tissue fragment which is wrapped in paper and submitted in toto in one cassette, one piece, multiple levels on one slide. JESÚS 08/17/2024 11:15 AM EDT [facility] Disclaimer Unless otherwise specified, all tissue is 10% NB formalin fixed and paraffin embedded. 08/17/2024 11:15 AM EDT [facility] Tissue Cecum structure / Unknown 08/14/2024 12:22 PM EDT 08/14/2024 1:55 PM EDT Tissue specimen (specimen) Ascending colon structure / Unknown 08/14/2024 12:24 PM EDT 08/14/2024 1:55 PM EDT Tissue specimen (specimen) Descending colon structure / Unknown 08/14/2024 12:27 PM EDT 08/14/2024 1:55 PM EDT Tissue specimen (specimen) Rectum structure / Unknown 08/14/2024 12:30 PM EDT 08/14/2024 1:55 PM EDT Conchis Carranza MD LAB PATHOLOGY ORDERABLES Final Result [facility] [address] [place] [address], * External clinical lab (08/04/2024) Only the most recent of2 resultswithin the time period is included. Provider [facility] LAB BLOOD ORDERABLES Fin al Result * (ABNORMAL) Protein and creatinine with ratio, urine (07/08/2024 11:40 AM EDT) Protein, Urine 32 mg/dL LAB CHEMISTRY METHOD 07/08/2024 2:47 PM EDT [facility] Prot/Creat, Ur 0.91(H) <=0.20 mg/mg creat LAB CHEMISTRY METHOD 07/08/2024 2:47 PM EDT [facility] Creatinine, Urine 35.0 mg/dL LAB CHEMISTRY METHOD 07/08/2024 2:47 PM EDT [facility] [facility] Urine Urine specimen obtained by clean catch procedure / Unknown Non-blood Collection / Unknown 07/08/2024 11:40 AM EDT 07/08/2024 11:43 AM EDT Camilla Hwang RETAIL SERVICE SPECIALIST LAB URINE ORDERABLES Final R esult [facility] [address] [place] [address], [place] [phone] * (ABNORMAL) Lipid panel with reflex to direct LDL (04/24/2024 9:53 AM EST) Cholesterol 172 0 - 200 mg/dL LAB CHEMISTRY METHOD 04/24/2024 12:02 PM [facility] Triglycerides 220(H) 0 - 150 mg/dL LAB CHEMISTRY METHOD 04/24/2024 12:02 PM [facility] HDL 53 >=40 mg/dL LAB CHEMISTRY METHOD 04/24/2024 12:02 PM [facility] LDL Calculated 75 0 - 100 mg/dL LAB CHEMISTRY METHOD 04/24/2024 12:02 PM [facility] VLDL Cholesterol Aman 44 mg/dL LAB CHEMISTRY METHOD 04/24/2024 12:02 PM [facility] Non HDL Chol. (LDL+VLDL) 119 <145 mg/dL LAB CHEMISTRY METHOD 04/24/2024 12:02 PM [facility] Chol/HDL Ratio 3.2 0.0 - 4.4 LAB CHEMISTRY METHOD 04/24/2024 12:02 PM [facility] Blood Venous blood specimen / Unknown Venipuncture / Unknown 04/24/2024 9:53 AM EST 04/24/2024 9:53 AM EST us Kathryn Romero MD LAB BLOOD ORDERABLES Final Resul t Performing Organization Address City/[facility]/ZIP Co de Phone Number [facility] [address] [place] [address], [place] [phone] * (ABNORMAL) Hemoglobin A1c (04/24/2024 9:53 AM EST) Hemoglobin A1C 7.6(H) <6.5 % LAB CHEMISTRY METHOD 04/24/2024 2:35 PM [facility] Mean Bld Glu Estim. 171 mg/dL LAB CHEMISTRY METHOD 04/24/2024 2:35 PM [facility] Blood Venous blood specimen / Unknown Venipuncture / Unknown 04/24/2024 9:53 AM EST 04/24/2024 9:53 AM EST us Kathryn Romero MD LAB BLOOD ORDERABLES Final Resul t [facility] [address] [place] [address], * Comprehensive metabolic panel (04/24/2024 9:53 AM EST) [facility] Sodium 139 133 - 145 mmol/L LAB CHEMISTRY METHOD 04/24/2024 12:02 PM [facility] Potassium 4.8 3.5 - 5.5 mmol/L LAB CHEMISTRY METHOD 04/24/2024 12:02 PM [facility] Chloride 105 96 - 110 mmol/L LAB CHEMISTRY METHOD 04/24/2024 12:02 PM [facility] CO2 30 21 - 32 mmol/L LAB CHEMISTRY METHOD 04/24/2024 12:02 PM [facility] Anion Gap 4 3 - 11 LAB CHEMISTRY METHOD 04/24/2024 12:02 PM [facility] Glucose 98 70 - 100 mg/dL LAB CHEMISTRY METHOD 04/24/2024 12:02 PM [facility] BUN 16 5 - 25 mg/dL LAB CHEMISTRY METHOD 04/24/2024 12:02 PM [facility] Creatinine 0.99 0.50 - 1.10 mg/dL LAB CHEMISTRY METHOD 04/24/2024 12:02 PM [facility] eGFR 60 >=60 mL/min/1. 73m2 LAB CHEMISTRY METHOD 04/24/2024 12:02 PM [facility] Comment:Calculation based on the??Chronic Kidney Disease Epidemiology Collaboration (CKD-EPI) equation refit??without adjustment for race. BUN/Creatinine Ratio 16.2 LAB CHEMISTRY METHOD 04/24/2024 12:02 PM [facility] Calcium 9.4 8.5 - 10.5 mg/dL LAB CHEMISTRY METHOD 04/24/2024 12:02 PM [facility] AST (SGOT) 18 10 - 42 unit/L LAB CHEMISTRY METHOD 04/24/2024 12:02 PM [facility] ALT (SGPT) 24 10 - 60 unit/L LAB CHEMISTRY METHOD 04/24/2024 12:02 PM [facility] Alkaline Phosphatase 75 42 - 121 unit/L LAB CHEMISTRY METHOD 04/24/2024 12:02 PM [facility] Total Protein 7.0 6.0 - 8.0 g/dL LAB CHEMISTRY METHOD 04/24/2024 12:02 PM [facility] Albumin 3.7 3.2 - 5.0 g/dL LAB CHEMISTRY METHOD 04/24/2024 12:02 PM [facility] Total Bilirubin 0.3 0.0 - 1.4 mg/dL LAB CHEMISTRY METHOD 04/24/2024 12:02 PM [facility] Blood Venous blood specimen / Unknown Venipuncture / Unknown 04/24/2024 9:53 AM EST 04/24/2024 9:53 AM EST us Kathryn Romero MD LAB BLOOD ORDERABLES Final Resul t [facility] [address] [place] [address], * SCREENING MAMMOGRAPHY BI 2-VIEW BREAST INC [...] category Low (<15%) Location: [facility], [address] [place] [address], [address], [phone] Procedure Note Geo Mata MD - 02/25/2024 [...] category Low (<15%) Location: [facility], [address] [place] [address], [address], [phone] Adolfo Campbell DO IMG XR PROCEDURES Final Resul t * Urine Albumin Creatinine Ratio (11/07/2023) Pathologist [facility] Urine Albumin Creatinine Ratio Abstracted us Historical Provider HEALTH MAINTENANCE Final Result * DXA BONE [...] (World Health Organization Fracture Risk Assessment) [facility] Department of Internal Medicine recommends using National [...] alternative screening schedule based on fawad Rico., [facility] May 17, 2011 for patients with osteopenia [...] years. (World HealthOrganization Fracture Risk Assessment) [facility] Department of Internal Medicine recommendsusing National Osteoporosis [...] alternative screening schedule based on fawad Rico., NEJMJanuary 2011 for patients with osteopenia (based on hip BMD T-score) is as follows: * advanced osteopenia (T scores -2.00 to -2.49), BMD testing every year * moderate osteopenia (T scores -1.50 to -1.99), BMD testing every 5years mild osteopenia or normal BMD (T scores -1.50 and higher), BMD testingevery 15 years Adolfo Campbell DO IMG DXA PROCEDURES Final Resu lt * Hepatitis C Screening (10/15/2012) [facility] Hepatitis C Screening Abstracted Historical Provider HEALTH MAINTENANCE Final Result from Last 3 Months or Most Recently Relevant to Health Maintenance Insurance [facility] Care Teams Dressing Room Porter Relationship Specialty Start Date End Date Kathryn Romero MD [address] [place] [id number] PCP - General Internal Medicine 04/16/24
--- OUTSIDE RECORDS SUMMARY | 2024-09-09 09:28 | XMS_ITS | Encounter Summary ---
Author Organization [facility] Address [address] [place] [address] Phone Care Team Providers Care Driving Teacher Name Role Phone Kathryn Romero MD Primary Care Provider [phone] Encounter Details Date Type Department Care Team (Late Contact Info) Description 05/01/2022 Telephone [facility] [address] [facility] [address] [place] [address] Marcela Lewis MD Social History [...] Visit [facility] [address] [facility] [address] [place] [address] Camilla Hwang ARNP [address] [facility] [address] [place] [address] documented as of this encounter Visit Diagnoses Not on filedocumented in this encounter Care Teams Driving Teacher Relationship Specialty Start Date End Date Kathyrn Romero MD PCP - General Internal Medicine 07/15/23 documented as of this encounter
--- OUTSIDE RECORDS SUMMARY | 2024-09-09 09:28 | XMS_ITS | Encounter Summary ---
Author Organization [facility] Address [address] [place] [address] Care Team Providers Care Goat Herder Name Role Phone Kathryn Romero MD Primary Care Provider [phone] Reason for Visit * Reason Onset Date Comments Medication Problem 09/01/2024 Encounter Details Date Type Department Care Team (Late st Contact Info) Description 09/01/2024 Telephone [facility] - [address] [address] Joaquina Rosado PA [address] [place] [address] Medication Problem Social History Tobacco Use Types Packs/Day Years [...] PM EST Sexual Orientation Not on file documented as of this encounter Progress Notes * Berna Hernandez RN - 09/08/2024 10:55 AM EDT Correction has been made * Berna Hernandez RN - 09/02/2024 3:18 PM EDT Novolog insulin SS entered incorrectly Pt wants pharmacy to be aware the scale is incorrect. * Zahida Pabon - 09/01/2024 2:19 PM EDT Medication Problem: What is the name of the medication patient is having a problem with?: Novolog What is the problem?: Pt calling to get clarification on sliding scale. Pt says she has been injecting 8 units since last year. Please call pt at [phone]. Who is calling about the problem? : The patient Is this a NEW medication?: no How long has the patient been taking this medication? N/A Who prescribed this medication for the patient? Joaquina Rosado Who is patients PCP?: Kathryn Romero MD Payor: [facility] / Plan: [facility] PPO / Product Type: *No Product type* / documented in this encounter Plan of Treatment Upcoming Encounters Date Type Department Care Team (Late st Contact Info) Description 10/16/2024 11:30 AM EDT Office Visit Adult Medicine [address] [phone] Kathryn Romero MD [address] [place] [phone] 03/01/2025 11:00 AM EST Ancillary Procedure [facility] [address] [phone] 03/15/2025 10:40 AM EST Appointment Radiology Department - [address] [phone] documented as of this encounter Visit Diagnoses Not on filedocumented in this encounter Discontinued Medications Medication Sig Discontinue Reason Start Date End Da te insulin aspart (NovoLOG Flexpen U-100 Insulin) 100 unit/mL (3 mL) injection pen INJECT 3 TIMES A DAY WITH MEALS PER SCALE: 100-149: 6 UNITS 150-200: 7 UNITS 201-250: 8 UNITS 251-300: 9 UNITS 301-350: 10 UNITS 351-400: 11 UNITS 401-450: 12 UNITS 451-500: 13 UNITS 08/31/2024 09/02/2024 documented as of this encounter Historical Medications * This list may reflect changes made after this encounter. insulin aspart (NovoLOG Flexpen U-100 Insulin) 100 unit/mL (3 mL) injection pen Inject 8-15 Units under the skin 3 (three) times a day before meals. 100-149: 8 units; 150-200: 9 units; 201-250: 10 units; 251-300: 11 units; 301-350: 12 units; 351-400: 13 units; 401-450: 14 units; 451-500: 15 units 09/02/2024 added in this encounter Care Teams Goat Herder Relationship Specialty Start Date End Date Kathryn Romero MD [address] [place] [id number] PCP - General Internal Medicine 04/16/24 documented as of this encounter
== END 2024-09-09 09:00 | disposition home or self-care (01) ==
LOC: HO.MAMMO 08:59
PROVIDERS: PCP Internal Medicine; Visit Provider Internal Medicine Rheumatology
DX: M81.0 Age-related osteoporosis without current pathological fracture (principal)
CPT/HCPCS: 77080

== ENCOUNTER → 2024-09-09 09:15 | Outpatient (BNV) | payer OTHER, SELFPAY ==
[2023-05-24 16:49] VITALS: BP 116/62; BP 168/68; BMI 34.4
== END ==
PROVIDERS: PCP Internal Medicine; Visit Provider Radiology Diagnostic Radiology
DX: E28.39 Other primary ovarian failure (principal)
CPT/HCPCS: 77080

== ENCOUNTER 2024-11-05 09:30 | Outpatient (AMB) | payer OTHER, SELFPAY ==
[2023-05-24 16:49] VITALS: BP 116/62; BP 168/68; BMI 34.4
--- NOTE | 2024-11-05 09:32 | A.OFFVIS_ITS ---
Vital Signs 11/05/24 09:33 Height 5 ft 4 in Weight 210 lb 1.608 oz BMI 36.1 BP 120/77 Blood Pressure Location Lt brachial Position Sitting Pulse 70 Pulse Oximetry (%) 98 Oxygen Delivery Method Room Air Intake Visit Reasons: 3 Months Intake Note: Patient presents for follow up on RA today. Allergies ALL COLOR DYES Allergy (Unknown, Uncoded 01/14/20 19:20) RASH/SOB HPI HPI 3 Months: Details: She is currently on Lantus in the morning subcutaneous injection and takes Hum alog 3 times a day before meals based on her sliding scale. She is currently doing 4 subcutaneous injections daily. Denies history of breast cancer or radiation or cancer of the bone. No recent fragility fracture. She is taking vitamin-D supplement that she change in his concerned it is a D2 instead of a D3. She is now taking a gel caps. She is experiencing muscle spasms in the legs at night. She is not on magnesium supplement. She feels dizzy when she gets up from seated position. [facility] Social History Patient Tobacco Use Status: Never used Tobacco Physical Exam Vital Signs: Last Vital Signs Pulse 70 11/05/24 09:33 BP 120/77 11/05/24 09:33 Pulse Ox 98 11/05/24 09:33 Oxygen Delivery Method Room Air 11/05/24 09:33 BMI result Body Mass Index 36.1 Const Other: General: Comfortable Skin: No lesions seen Ambulates with walker MSK: She has muscle wasting in her thighs Results Reviewed Results Reviewed: Ordering Physician: Myles Hartman MD Results: Date of Service: 09/09/24 Follow Up: Procedure(s): XR DEXA axial skeleton Accession Number(s): [id number] cc: Kathryn Romero MD; Myles Hartman MD~ EXAMINATION: DXA BONE DENSITY AXIAL HISTORY: M81.0 - Age-related osteoporosis without current pathological fracture TECHNIQUE: [employer] Dual energy absorptiometry (DEXA) of the lumbar spine, total left hip, and femoral neck was performed. COMPARISON: There are no prior studies for comparison. FINDINGS: The bone mineral density of the lumbar spine is 1.217 with a T-score of 0.3, and a Z-score of 1.2. This is indicative of normal bone mineral density. The bone mineral density of the left total hip is 0.834 with a T-score of -1.4, and a Z-score of -0.3. This is indicative of osteopenia. The bone mineral density of the left femoral neck is 0.723 with a T-score of -2.3, and a Z-score of -0.9. This is indicative of osteopenia. FRACTURE RISK: The FRAX index suggests a risk of major osteoporotic fracture of 20.5%, and of hip fracture 5.2%. Assessment & Plan Assessment & Plan (1) Osteoporosis: Comment: With history of fragility fracture affecting right wrist and left patella. She is high-risk for future fractures. Bone density 08/2024 reveals lowest T-score in osteopenic range -2.3 left femoral neck with FRAX revealing high-risk for future fractures. She meets WHO definition of osteoporosis based on her fragility fractures. Romosuzamab is indicated followed by anti resorptive agents such as Reclast to optimize gains from anabolic agent. Patient has history of coronary artery disease status post CABG 2016. I have spoken with her chore worker 2023 who has informed me that patient's cardiac status is protected with her current CABG and she is okay with patient being on Romosuzamab with close monitoring. At this time she is on 4 insulin subcutaneous injection daily: Humalog subcutaneous injection 3 times a day and Lantus in the morning. She also has to take Ozempic subcutaneous injection weekly for diabetes control. She is using abdomen sites for insulin, Humalog and Ozempic. She has muscle wasting in her thighs. She does not have adequate subcutaneous injection site for another subcutaneous injection, Forteo. Patient does not have another family member or friend that could administer Forteo in her upper arms to access another side. Forteo is contraindicated in patient. I am recommending Romosuzumab approval to help treat patient's osteoporosis with high fracture risk. Treatment sequence matters. Best gains in improving bone density is when anabolic agent is followed by anti resorptive agent. It is not appropriate for her to be started on Prolia as it is an anti resorptive agent. Prolia could be followed by anabolic agent, romosuzumab, for optimal results in improving bone density. The benefits gained from romosuzumab is further consolidated with an anti resorptive agents such as Prolia or Reclast. Code(s): M81.0 - Age-related osteoporosis without current pathological fracture Category: Medical Qualifiers: Osteoporosis type: age-related Presence of current pathological fracture: unspecified Qualified Code(s): M81.0 - Age-related osteoporosis without current pathological fracture Plan: Frank MONTENEGRO Vitamin-D level, alkaline phosphatase, magnesium ordered She is unable to tolerate calcium supplement (large pill). She is currently having a serving of yogurt daily and a glass of milk. She is on vitamin-D gel capsule daily. She will call office with dose that she takes to update medication list I have asked her to follow up with PCP for evaluation of orthostatic hypotension Return to clinic in 3 months (2) Leg cramps: Code(s): R25.2 - Cramp and spasm Category: Medical Plan: Magnesium ordered Continue stretching Return to clinic in 3 months Orders: Orders Alkaline Phosphatase Today M81.0 - Age-related osteoporosis without current pathological fracture Magnesium Today R25.2 - Cramp and spasm Vitamin D 25-OH Total Today M81.0 - Age-related osteoporosis without current pathological fracture Coding Level of Care Code Est Pt Level 3 (83171) Complex EM visit Add On G2211 Diagnoses Age related osteoporosis, unspecified pathological fracture presence M81.0 Osteoporosis type: age-related Presence of current pathological fracture: unspecified Leg cramps R25.2
[2024-11-05 09:33] VITALS: BP 120/77; PULSE 70; O2SAT 98; BMI 36.1
--- OUTSIDE RECORDS SUMMARY | 2024-11-05 09:59 | XMS_ITS | Clinical Summary ---
Author Organization [facility] Address [address] [place] [address] Phone Care Team Providers Care Branch Coordinator Name Role Phone Kathryn Romero MD Primary Care Provider [phone] Allergies Active Allergy Reactions Criticality Noted Date Comments Amaranth Hives 09/05/2006 Graf Derived Rash 07/15/2020 D And C Yellow [...] 4 Devices into the skin daily. Active nystatin (MYCOSTATIN) ointment Apply up to BID prn itching 2024 Active ONETOUCH ULTRASOFT LANCETS MISC 1 [...] SUBCUTANEOUSLY AT BEDTIME 45 mL 11 Active sacubitriL-vals guillermo (ENTRESTO) 49-51 mg per [...] diabetes mellitus with other diabetic kidney complication ([facility] V24, [facility] V28) USE TO TEST 4 TIMES DAILY 400 strip 1 Active atorvastatin (LIPITOR) 40 mg tablet TAKE 1 TABLET BY MOUTH EVERY DAY 90 tablet 1 025 Active triamcinolone (KENALOG) 0.025 % ointment APPLY TWICE A DAY FOR 28 DAYS 30 g 2 025 Active BD Selina 2nd Gen Pen Needle 32 gauge x needleIndicatio ns:Type 2 diabetes mellitus with other diabetic kidney complication (CMS/HCC V24, [facility] V28) USE 4 TIMES A DAY 200 each 6 025 Active metFORMIN (GLUCOPHAGE) 500 mg tabletIndicatio ns:Type 2 diabetes mellitus with other diabetic kidney complication ([facility] V24, [facility] V28) TAKE 2 TABLETS BY MOUTH TWICE [...] 14 units; 451-500: 15 units 025 Active Ozempic 2 mg/dose (8 mg/3 mL) injection penIndications: Type 2 diabetes mellitus with other diabetic kidney complication ([facility] V24, [facility] V28) INJECT 2 MG INTO THE SKIN EVERY 7 DAYS 9 mL 1 025 Active carvediloL (COREG) 12.5 mg tablet TAKE 1 TABLET BY MOUTH 2 TIMES DAILY (WITH MEALS) FOR 90 DAYS. 180 tablet 1 025 Active magnesium oxide (MAG-OX) 400 mg magnesium tablet 2024 Discontinued(T herapy completed) carvediloL (COREG) 12.5 mg tablet TAKE 1 TABLET BY MOUTH 2 TIMES DAILY (WITH MEALS) FOR 90 DAYS. 180 tablet 1 025 2024 Discontinued Ozempic 2 mg/dose (8 mg/3 mL) injection penIndications: Type 2 diabetes mellitus with other diabetic kidney complication ([facility] V24, [facility] V28) INJECT 2 MG INTO THE SKIN EVERY 7 DAYS 3 mL 5 025 2024 Discontinued empagliflozin (JARDIANCE) 25 mg tablet Take 1 tablet (25 mg total) by mouth 1 (one) time each day. 90 tablet 1 025 2024 Discontinued(D ose adjustment) polyethylene glycol (Golytely) 236-22.74-6.74 -5.86 gram solution Take 4L by mouth once for one dose. May substitue any PEG. Starting at 6PM the night before your procedure drink 1 8oz glasses at your own pace until you complete half of the gallon. Finish 2nd half of the gallon 5 hours before your procedure. 4000 mL 025 2024 Discontinued(T herapy completed) bisacodyL (DULCOLAX) 5 mg EC tablet Take 2 tablets by mouth right before beginning bowel prep. See instructions provided by the office 2 tablet 025 2024 Discontinued(T herapy completed) Active Problems Problem Noted Date Diagnosed Date Type 2 diabetes mellitus, wi th long-term current use of insulin ([facility] V24, [facility] V28) 08/14/2024 Aortic stenosis 08/14/2024 History of [...] 05/14/2017 Overview (05/25/2024): DX:Coronary artery disease involving elim ira coronary artery of elim ira heart without angina pectoris - Cath in [...] cath in July 2022 showing again severe elim ira four-vessel disease with patent vein graft to [...] she strongly bring this up with 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 For now, she will continue 10 mg of Jardiance but will plan to discuss the dosing change with her finishing area supervisor. Continue current spironolactone, Entresto, carvedilol. She was happy to hear that her ejection fraction had improved. 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) Encounters Date Type Department Care Team Description 10/16/2024 11:30 AM EDT Office Visit Adult [facility] [address] [place], [place] [phone] Kathryn Romero MD Mixed hyperlipidemia (Primary Dx); Essential hypertension, benign 09/01/2024 Telephone Endocrinology - [address] [place] [address] Joaquina Rosado PA Medication Problem 09/01/2024 Telephone [facility] - [address] [facility] [address] [place] [phone] Malorie Cobos MD Med Refill (Entresto) 08/17/2024 Telephone Gastroenterology - [address] [facility] [address] [place] [phone] Camilla Clark MA 08/14/2024 12:16 PM EDT Anesthesia Event [facility] Endoscopy [address] [place] [phone] Nora Muñiz MD 08/14/2024 11:02 AM EDT - 08/14/2024 11:59 PM EDT Hospital Encounter [facility] Endoscopy [address] [place] [phone] Conchis Carranza MD Guerin, Erik R, Nora Simon MD History of colon polyps Discharge Disposition: Home or Self Care from Last 3 Months Immunizations Name Administration [...] tubular adenoma. OTHER SURGICAL HISTORY 10/04/2022 PROCEDURE: MI REPLACE AORTIC VALVE PERQ FEMORAL ARTRY APPROACH [...] mellitus wit h renal manifestations (CMS/HCC V24, CMS/HCC V28) 10/17/2017 DX:Type 2 diabetes mellitus with renal manifestations (HCC) S/P CABG x 2 07/10/2017 DX:S/P CABG x 2; COMMENT: KABA-LAD, SVG-ramus on 05/2017Dr. Jose Juan Leal Nonrheumatic aortic valve stenosis 08/13/2017 DX:Nonrheumatic aortic valve stenosis Microalbuminuria 08/25/2009 DX:Microalbumin uria; COMMENT: Sees Dr. Lewis Ischemic cardiomyopathy 08/13/2017 DX:Ische antony cardiomyopathy Coronary artery disease invo lving elim ira coronary artery of elim ira heart without angina pectoris 05/14/2017 DX:Coronary artery disea se involving elim ira coronary artery of elim ira heart without angina pectoris Ankle weakness 06/16/2012 DX:Ankle weaknes s Aortic stenosis, moderate 03/18/2017 DX:Aor tic stenosis, moderate Glaucoma 11/10/2018 DX:Glaucoma Cataract 11/10/2018 DX:Cataract Type 2 diabetes mellitus wit h cataract ([facility]/HCC V24, CMS/HCC V28) 11/10/2018 DX:Type 2 diabetes mellitus with [...] Packs/Day Years Used Date Smoking Tobacco: Never Passive Smoke Exposure: Never Smokeless Tobacco: Never Tobacco Cessation:Counseling Given: Not Answered Alcohol Use Standard Drinks/Week Comments No 0 [...] Sign Reading Time Taken Comments Blood Pressure 118/62 10/16/2024 11:28 AM EDT Pulse 76 10/16/2024 11:28 AM EDT Temperature 36.2 C (97.2 F) 10/16/2024 11:28 AM EDT Respiratory Rate 14 10/16/2024 11:28 AM EDT Oxygen Saturation 98% 10/16/2024 11:28 AM EDT Inhaled Oxygen Concentration - - Weight 89.8 kg (198 lb) 10/16/2024 11:28 AM EDT Height 162.6 cm (5' 4 ) 10/16/2024 11:28 AM EDT Body Mass Index 33.99 10/16/2024 11:28 AM EDT Plan of Treatment Upcoming Encounters Date Type Department Care Team (Late st Contact Info) Description 03/01/2025 11:00 AM EST Ancillary Procedure [facility] - [facility] [address] [facility] [address] [place] [address] 03/15/2025 10:40 AM EST Appointment Radiology Department - [address] [phone] 04/20/2025 10:00 AM EST Office Visit Adult [facility] - [address] [phone] Kathryn Romero MD [address] [place] [phone] Health Maintenance Due Date Last Done Comments [...] Annual Urine Albumin-Creatinine Ratio (uACR) 11/06/2024 11/07/2023 Influenza Vaccine (#1) 2024 , 01/14/2023, 02/02/2022, Additional history exists Diabetes: Annual GFR (Glomerular Filtration Rate) 04/24/2025 04/24/2024, 01/13/2024, 01/13/2024, Additional history exists Hypertension/CHF/CAD Annual BMP Blood Test 04/24/2025 04/24/2024, 01/13/2024, 01/13/2024, Additional history exists Diabetes: Annual Foot Exam 05/19/2025 05/19/2024 Falls Risk Assessment 08/14/2025 08/14/2024 Diabetes: Annual Retina Eye Exam 08/18/2025 08/18/2024, 08/18/2024, 05/13/2023 Breast Cancer Screening 02/12/2026 02/13/20, 02/13/2024, 02/01/2023, Additional history exists DTaP,Tdap,and Td Vaccines (3 - Td or Tdap) 06/19/2028 06/19/2018, 03/09/2008 Cholesterol Screening (Lipid Panel) 04/24/2029 04/24/2024, 11/07/2023, 11/07/2023 Colorectal Cancer Screening: Colonoscopy 08/14/2029 08/14/2024, 10/15/2018, 10/15/2018 Osteoporosis Screening (Bone Density Screening) 09/10/2039 09/09/2024, 09/09/2024, 03/12/2022 Hepatitis C Screening Completed 10/15/2012 Pneumococcal Vaccine: 50+ Years Completed 01/23/2017, 12/21/2015, 12/10/2012, Additional history exists Zoster Vaccines Completed 11/17/2021, 05/2019, 05/30/2016 HIB Vaccines Aged Out No longer eligi [...] Name Priority Date/Time Associated Diagnosis Comments EXTERNAL DEXA REPORT 09/09/2024 EXTERNAL DEXA REPORT 09/09/2024 EXTERNAL DIABETIC RETINA EYE EXAM Routine 08/18/2024 12:38 PM EDT COLONOSCOPY Routine 08/14/2024 12:33 PM EDT History of colon polyps TISSUE EXAM Routine 08/14/2024 12:22 PM EDT History of colon polyps COMPREHENSIVE METABOLIC PANEL Routine 04/24/2024 9:53 AM EST Essential hypertension, benign HEMOGLOBIN A1C Routine 04/24/2024 9:53 AM EST Type 2 diabetes mellitus with stage 3a chronic kidney disease, with long-term current use of insulin ([facility] V24, [facility] V28) LIPID PANEL WITH REFLEX TO DIRECT LDL Routine 04/24/2024 9:53 AM EST Mixed hyperlipidemia SCREENING MAMMOGRAPHY BI 2-VIEW BREAST INC CAD Routine 02/13/2024 10:42 AM EDT Encounter for screening mammogram for malignant neoplasm of breast URINE ALBUMIN CREATININE RATIO Routine 11/07/2023 HEPATITIS C SCREENING Routine 10/15/2012 from Last 3 Months or Most Recently Relevant to Health Maintenance Results * External Dexa Report (09/09/2024) Only the most recent of2 resultswithin the time period is included. Anatomical Region Laterality Modality Bone Densitometr y us Provider [facility] IMG DXA PROCEDURES Final Result * External Diabetic Retina Eye Exam Report (08/18/2024 12:38 PM EDT) Anatomical Region Laterality Modality Ultrasound us Historical Provider IMG US PROCEDURES Final R esult * COLONOSCOPY Anesthesia - MAC; [facility] ENDOSCOPY (08/14/2024 12:33 PM EDT) Anatomical Region Laterality Modality Endoscopy 08/14/2024 12:0 1 PM EDT Impressions 08/14/2024 12:34 PM EDT - The examined portion of the ileum was normal. - One 3 mm polyp in the cecum, removed with a cold snare. Resected and retrieved. - One 4 mm polyp in the ascending colon, removed with a cold snare. Resected and retrieved. - One 3 mm polyp in the descending colon, removed with a cold snare. Resected and retrieved. - One 2 mm polyp in the rectum, removed with a cold snare. Resected and retrieved. - Internal hemorrhoids. - The examination was otherwise normal. Recommendation: - Await pathology results. - Repeat colonoscopy for surveillance based on pathology results. Narrative 08/14/2024 12:34 PM EDT [facility] GI Patient Name: Paige Bonds Procedure Date: 08/14/2024 12:01 PM Date of : 1950 Age: 74 Gender: Female Note Status: Finalized Attending MD: Conchis Carranza MD, Procedure Date No Time: 08/14/2024 Procedure: Colonoscopy Indications: High risk colon cancer surveillance: Personal history of non-advanced adenoma, Family history of advanced [...] scope was passed under direct vision. Throughout the procedure, the patient's blood pressure, pulse, and oxygen [...] retrieval were complete. Internal hemorrhoids were found during retroflexion. The hemorrhoids were Grade I (internal hemorrhoids that do not prolapse). The exam was otherwise without abnormality. Procedure Code(s): --- Professional --- 00805, Colonoscopy, flexible; with removal of tumor(s), polyp(s), or other lesion(s) by snare technique Diagnosis Code(s): --- Professional --- Z86.010, Personal history of colonic polyps D12.0, Benign neoplasm of cecum D12.2, Benign neoplasm of ascending colon D12.4, Benign neoplasm of descending colon D12.8, Benign neoplasm of rectum Z83.71, Family history of colonic polyps CPT copyright 2020 [employer]. All rights reserved. The codes documented in this report are preliminary and upon braille coder review may be revised to meet current compliance requirements. Conchis Carranza MD 08/14/2024 12:34:41 PM This report has been signed electronically.Conchis Carranza MD Number of Addenda: 0 Note Initiated On: 08/14/2024 12:01 PM Scope In: Scope Out: Endoscopy Department at [facility] - [address] [place] [phone] Procedure Note Conchis Carranza MD - 08/14/2024 [facility] GI Patient Name: Paige Bonds [...] without abnormality. Procedure Code(s): --- Professional --- 24497, Colonoscopy, flexible; with removal of tumor(s), polyp(s), or other lesion(s) by snare technique Diagnosis Code(s): --- Professional --- Z86.010, Personal history of colonic polyps D12.0, Benign neoplasm of cecum D12.2, Benign neoplasm of ascending colon D12.4, Benign neoplasm of descending colon D12.8, Benign neoplasm of rectum Z83.71, Family history of colonic polyps CPT copyright 2020 [employer]. All rights reserved. The codes documented in this report are preliminary and upon braille coder reviewmay be revised to meet current compliance requirements. Conchis Carranza MD 08/14/2024 12:34:41 PM This report has been signed electronically.Conchis Carranza MD Number of Addenda: 0 Note Initiated On: 08/14/2024 12:01 PM Scope In: Scope Out: Endoscopy Department at [facility] - [address] [place] [phone] IMPRESSION: - The examined portion of the [...] colonoscopy for surveillance based on pathology results. Conchis Carranza MD GI~PROCEDURE ORDERABLES Final Result * Tissue exam (08/14/2024 12:22 PM EDT) Final Diagnosis A. Polyp, cecum, polypectomy: - Tubular adenoma. B. Polyp, ascending colon, polypectomy: - Tubular adenoma. C. Polyp, descending colon, polypectomy: - Tubular adenoma (fragments). D. Polyp, rectum, polypectomy: - Hyperplastic polyp. 08/17/2024 11:15 AM EDT [facility] HOSPITAL LAB Gross Description A. Large Intestine, [...] one slide. JESÚS 08/17/2024 11:15 AM EDT [facility] Disclaimer Unless otherwise specified, all tissue is 10% NB formalin fixed and paraffin embedded. 08/17/2024 11:15 AM EDT [facility] Tissue Cecum structure / Unknown [...] Carranza MD LAB PATHOLOGY ORDERABLES Final Result [facility] [address] [place] [address], * (ABNORMAL) Lipid panel with reflex to direct LDL (04/24/2024 9:53 AM EST) Cholesterol 172 0 - 200 mg/dL LAB CHEMISTRY METHOD 04/24/2024 12:02 PM EST [facility] Triglycerides 220(H) 0 - 150 mg/dL LAB CHEMISTRY METHOD 04/24/2024 12:02 PM EST [facility] HDL 53 >=40 mg/dL LAB CHEMISTRY METHOD 04/24/2024 12:02 PM EST [facility] LDL Calculated 75 0 - 100 mg/dL LAB CHEMISTRY METHOD 04/24/2024 12:02 PM [facility] VLDL Cholesterol Aman 44 mg/dL LAB CHEMISTRY METHOD 04/24/2024 12:02 PM [facility] Non HDL Chol. (LDL+VLDL) 119 <145 mg/dL LAB CHEMISTRY METHOD 04/24/2024 12:02 PM [facility] Chol/HDL Ratio 3.2 0.0 - 4.4 LAB CHEMISTRY METHOD 04/24/2024 12:02 PM [facility] Blood Venous blood specimen / Unknown Venipuncture / Unknown 04/24/2024 9:53 AM EST 04/24/2024 9:53 AM EST us Kathryn Romero MD LAB BLOOD ORDERABLES Final Resul t Performing Organization Address City/[facility]/ZIP Co de Phone Number [facility] [address] [place] [address], [place] [phone] * (ABNORMAL) Hemoglobin A1c (04/24/2024 9:53 AM EST) Hemoglobin A1C 7.6(H) <6.5 % LAB CHEMISTRY METHOD 04/24/2024 2:35 PM [facility] Mean Bld Glu Estim. 171 mg/dL LAB CHEMISTRY METHOD 04/24/2024 2:35 PM [facility] Blood Venous blood specimen / Unknown Venipuncture / Unknown 04/24/2024 9:53 AM EST 04/24/2024 9:53 AM EST us Kathryn Romero MD LAB BLOOD ORDERABLES Final Resul t [facility] [address] [place] [address], [place] [phone] * Comprehensive metabolic panel (04/24/2024 9:53 AM EST) Sodium 139 133 - 145 mmol/L LAB CHEMISTRY METHOD 04/24/2024 12:02 PM [facility] Potassium 4.8 3.5 - 5.5 mmol/L LAB CHEMISTRY METHOD 04/24/2024 12:02 PM [facility] Chloride 105 96 - 110 mmol/L LAB CHEMISTRY METHOD 04/24/2024 12:02 PM [facility] CO2 30 21 - 32 mmol/L LAB CHEMISTRY METHOD 04/24/2024 12:02 PM [facility] Anion Gap 4 3 - 11 LAB CHEMISTRY METHOD 04/24/2024 12:02 PM [facility] Glucose 98 70 - 100 mg/dL LAB CHEMISTRY METHOD 04/24/2024 12:02 PM [facility] BUN 16 5 - 25 mg/dL LAB CHEMISTRY METHOD 04/24/2024 12:02 PM [facility] Creatinine 0.99 0.50 - 1.10 mg/dL LAB CHEMISTRY METHOD 04/24/2024 12:02 PM [facility] eGFR 60 >=60 mL/min/1. 73m2 LAB CHEMISTRY METHOD 04/24/2024 12:02 PM [facility] Comment:Calculation based on the Chronic Kidney Disease Epidemiology Collaboration (CKD-EPI) equation refit without adjustment for race. BUN/Creatinine Ratio 16.2 LAB CHEMISTRY METHOD 04/24/2024 12:02 PM [facility] Calcium 9.4 8.5 - 10.5 mg/dL LAB CHEMISTRY METHOD 04/24/2024 12:02 PM [facility] AST (SGOT) 18 10 - 42 unit/L LAB CHEMISTRY METHOD 04/24/2024 12:02 PM [facility] ALT (SGPT) 24 10 - 60 unit/L LAB CHEMISTRY METHOD 04/24/2024 12:02 PM [facility] Alkaline Phosphatase 75 42 - 121 unit/L LAB CHEMISTRY METHOD 04/24/2024 12:02 PM EST [facility] Total Protein 7.0 6.0 - 8.0 g/dL LAB CHEMISTRY METHOD 04/24/2024 12:02 PM EST [facility] Albumin 3.7 3.2 - 5.0 g/dL LAB CHEMISTRY METHOD 04/24/2024 12:02 PM [facility] Total Bilirubin 0.3 0.0 - 1.4 mg/dL LAB CHEMISTRY METHOD 04/24/2024 12:02 PM EST [facility] Blood Venous blood specimen / Unknown Venipuncture / Unknown 04/24/2024 9:53 AM EST 04/24/2024 9:53 AM EST us Kathryn Romero MD LAB BLOOD ORDERABLES Final Resul t [facility] [address] [place] [address], * SCREENING MAMMOGRAPHY BI 2-VIEW BREAST INC [...] are composed of fatty and fibroglandular tissue. No suspicious mass, architectural distortion or suspicious calcifications are identified. IMPRESSION: : No mammographic evidence of malignancy. BIRADS 1-Negative; N. Breast density: The breasts have scattered areas of fibroglandular density. 5 year breast cancer risk assessment 2.0 % Lifetime breast cancer risk assessment 4.8 % Breast cancer risk category Low (<15%) Location: [facility], [address] [place] [address], [place], [address], [phone] Procedure Note Geo Mata MD - 02/25/2024 [...] Breast cancer risk category Low (<15%) Location: [facility], [address] [place] [address], [id number], [phone] Adolfo Campbell DO IMG XR PROCEDURES Final Resul t * Urine Albumin Creatinine Ratio (11/07/2023) Urine Albumin Creatinine Ratio Abstracted Historical Provider HEALTH MAINTENANCE Final Result * Hepatitis C Screening (10/15/2012) Hepatitis C Screening Abstracted Historical Provider HEALTH MAINTENANCE Final Result from Last 3 Months or Most Recently Relevant to Health Maintenance Insurance [employer] Care Teams Branch Coordinator Relationship Specialty Start Date End Date Kathryn Romero MD [address] [place] [phone] PCP - General Internal Medicine 04/16/24
--- OUTSIDE RECORDS SUMMARY | 2024-11-05 09:59 | XMS_ITS | Encounter Summary ---
Author Organization [facility] Address [address] [place] [address] Phone Care Team Providers Care Skimmer Scoop Operator Name Role Phone Kathryn Romero MD Primary Care Provider [phone] Encounter Details Date Type Department Care Team (Late Contact Info) Description 05/01/2022 Telephone [facility] [address] [facility] [address] [place] [address] Marcela Lewis MD Social History [...] Care Team (Late st Contact Info) Description 01/13/2025 11:15 AM EDT Office Visit [facility] [address] [facility] [address] [place] [address] Camilla Hwang ARNP [address] [facility] [address] [place] [address] documented as of this encounter Visit Diagnoses Not on filedocumented in this encounter Care Teams Skimmer Scoop Operator Relationship Specialty Start Date End Date Kathryn Romero MD [address] [place] [address] [phone] PCP - General Internal Medicine 07/15/23 documented as of this encounter
== END 2024-11-05 10:07 | disposition home or self-care (01) ==
LOC: HO.RHES 09:31
PROVIDERS: PCP Internal Medicine; Visit Provider Internal Medicine Rheumatology
DX: M81.0 Age-related osteoporosis without current pathological fracture (principal); R25.2 Cramp and spasm
CPT/HCPCS: 99213

== ENCOUNTER 2024-11-05 09:30 | Outpatient (REF) | payer OTHER, SELFPAY ==
[2023-05-24 16:49] VITALS: BP 116/62; BP 168/68; BMI 34.4
[2024-11-05 14:51] LABS: Alkaline Phosphatase 63 U/L (39-117); Magnesium 1.8 mg/dL (1.6-2.6)
== END 2024-11-05 09:31 | disposition home or self-care (01) ==
LOC: HO.HKASLDS 09:30
PROVIDERS: PCP Internal Medicine; Visit Provider Internal Medicine Rheumatology
DX: R25.2 Cramp and spasm (principal); M81.0 Age-related osteoporosis without current pathological fracture
CPT/HCPCS: 36415; 82306; 83735; 84075

== ENCOUNTER 2025-01-04 11:42 | Outpatient (REF) | payer OTHER, SELFPAY ==
[2023-05-24 16:49] VITALS: BP 116/62; BP 168/68; BMI 34.4
--- OUTSIDE RECORDS SUMMARY | 2025-01-04 14:22 | XMS_ITS | Encounter Summary ---
Author Organization [facility] Address [address] [place] [address] Phone Care Team Providers Care Senior Communications Specialist Name Role Phone Kathryn Romero MD Primary Care Provider [phone] Encounter Details Date Type Department Care Team (Late Contact Info) Description 05/01/2022 Telephone [facility] [address] [facility] [address] [place] [address] Marcela Lewis MD Social History [...] Department Care Team (Late Contact Info) Description 01/13/2025 11:15 AM EDT Office Visit [facility] [address] [facility] [address] [place] [address] Camilla Hwang ARNP [address] [facility] [address] [place] [address] documented as of this encounter Visit Diagnoses Not on filedocumented in this encounter Care Teams Senior Communications Specialist Relationship Specialty Start Date End Date Kathryn Romero MD [address] [place] [address] [phone] PCP - General Internal Medicine 07/15/23 documented as of this encounter
--- OUTSIDE RECORDS SUMMARY | 2025-01-04 14:22 | XMS_ITS | Encounter Summary ---
Author Organization [facility] Address [address] [address] Phone Care Team Providers Care Spinner Frame Name Role Phone Kathryn Romero MD Primary Care Provider [phone] Encounter Details Date Type Department Care Team (Late st Contact Info) Description 12/29/2024 Office Communication [facility] [address] [phone] Ysabel Linda [address] [address] Social History Tobacco Use Types Packs/Day Years [...] encounter Miscellaneous Notes * Telephone Encounter - Ysabel Linda - 12/29/2024 3:12 PM EDT Spoke to pt and message was given below. * Telephone Encounter - Ysabel Linda - 12/29/2024 2:23 PM EDT Camilla pt calling and she is asking if she need to do her lab work done before appointment on 01/13/2025. Pt did lab work on 11/11/2024 . Please advise.THANK YOU documented in this encounter Plan of Treatment Upcoming Encounters Date Type Department Care Team (Late st Contact Info) Description 01/13/2025 11:15 AM EDT Office Visit [facility] [address] [phone] Camilla Hwang ARNP [address] [address] documented as of this encounter Visit Diagnoses Not on filedocumented in this encounter Care Teams Spinner Frame Relationship Specialty Start Date End Date Kathryn Romero MD [address] [place] [phone] PCP - General Internal Medicine 07/15/23 documented as of this encounter
--- OUTSIDE RECORDS SUMMARY | 2025-01-04 14:22 | XMS_ITS | Clinical Summary ---
Author Organization [facility] Address [address] [place] [phone] Phone Care Team Providers Care Chicken Vaccinator Name Role Phone Kathryn Romero MD Primary Care Provider [phone] Allergies Active Allergy Reactions Criticality Noted Date Comments Blue Dye #1 ([place] Blue) Hives 007 [place] 07/15/2020 Grass Pollen Standardized Ext Other (see comments) 07/15/2020 Green Dye Hives 09/05/2006 Red Dye #2 (Amaranth) (Non-Screening) Hives 09/05/2006 Yellow Dye #6 ([place] Yellow) Hives 2006 Medications Semaglutide, 1 MG/DOSE, (Ozempic, 1 MG/DOSE,) [...] mouth 1 (one) time each day Active Blood Pressure Monitoring (Omron 3 Series BP Monitor) deviceIndicatio ns:Chronic kidney disease, stage 2 (mild),Essentia l hypertension,Pr oteinuria, not otherwise specified 1 Device 1 (one) time each day 1 each 5 Active Active Problems Problem Noted Date Diagnosed [...] Encounters Date Type Department Care Team Description 12/29/2024 Office Communication [facility] [address] [address] Ysabel Linda 10/13/2024 10:15 AM EDT Office Visit [facility] [place] [id number] [phone] Camilla Hwang ARNP Chronic kidney disease, stage 2 (mild) (Primary Dx); Essential hypertension; Proteinuria, not otherwise specified; Vitamin D deficiency, not otherwise specified; Hypo-osmolality and hyponatremia 10/13/2024 Refill [facility] [address] [phone] Sylwia Dailey MA Chronic kidney disease, stage 2 (mild); Essential hypertension; Proteinuria, not otherwise specified from Last 3 Months Immunizations Immunization Administration [...] Sign Reading Time Taken Comments Blood Pressure 138/70 10/13/2024 10:12 AM EDT Pulse 75 10/13/2024 10:12 AM EDT Temperature - - Respiratory Rate - - Oxygen Saturation 97% 07/08/2024 10:19 AM EDT Inhaled Oxygen Concentration - - Weight 94.3 kg (208 lb) 10/13/2024 10:12 AM EDT Height 165.1 cm (5' 5 ) 01/25/2023 10:01 AM EDT Body Mass Index 34.61 01/25/2023 10:01 AM EDT Plan of Treatment Upcoming Encounters Date Type Department Care Team (Late st Contact Info) Description 01/13/2025 11:15 AM EDT Office Visit [facility] [address] [phone] Camilla Hwang ARNP [address] [address] Health Maintenance Due Date Last Done Comments Breast Cancer Screening 1950 Colorectal Cancer Screening: Annual FOBT 1999 Colorectal Cancer Screening: Colonoscopy 1999 Colorectal Cancer Screening: Sigmoidoscopy 1999 Hepatitis B Vaccine (1 of 3 - Risk 3-dose series) 2010 Diabetes: Ophthalmology Exam 05/29/2020 Diabetes: Pedal Pulse Checked 05/29/2020 Diabetes: Sensory Foot Exam 05/29/2020 Diabetes: Visual Foot Exam 05/29/2020 Influenza Vaccine (#1) 2024 4, 01/14/2023, 02/02/2022, Additional history exists Diabetes: Hemoglobin A1C 02/11/2025 025, 04/24/2024, 10/20/2021, Additional history exists Pneumococcal Vaccine: 50+ Years Completed 01/23/2017, 12/21/2015, 12/10/2012, Additional history exists Pneumococcal Vaccine: Peds ( 0 to 5 Years) and At-Risk Patients (6 to 49 Years) Discontinued 01/23/2017, 12/21/2015, 12/10/2012, Additional history exists Procedures Procedure Name Priority Date/Time Associated Diagnosis Comments PROTEIN / CREATININE RATIO, URINE Routine 11/11/2024 10:59 AM EDT Chronic kidney disease, stage 2 (mild) Essential hypertension Proteinuria, not otherwise specified URINE ALBUMIN / CREATININE RATIO Routine 11/11/2024 10:59 AM EDT Chronic kidney disease, stage 2 (mild) Essential hypertension Proteinuria, not otherwise specified VITAMIN D 25 HYDROXY Routine 11/11/2024 10:08 AM EDT Chronic kidney disease, stage 2 (mild) Vitamin D deficiency, not otherwise specified RENAL FUNCTION PANEL Routine 11/11/2024 10:08 AM EDT Chronic kidney disease, stage 2 (mild) Essential hypertension Proteinuria, not otherwise specified EXT RESULT ENTRY Routine 12/01/2020 from Last 3 Months or Most Recently Relevant to Health Maintenance Results * (ABNORMAL) Urine Protein / creatinine ratio (11/11/2024 10:59 AM EDT) Protein, Ur 20 mg/dL [facility] Urine Protein/Creati nine Ratio 0.36(H) <=0.20 mg/mg creat [facility] Creatinine, Urine 55.0 mg/dL [facility] Urine Urine specimen obtained by clean catch procedure / Unknown 11/11/2024 10:59 AM EDT 11/11/2024 11:56 AM EDT [facility] URINE ORDERABLES Final Result Performing Organization Address City/[facility]/ZIP Co de Phone Number [facility] [address] [place] [address] * (ABNORMAL) Urine Albumin / Creatinine Ratio (11/11/2024 10:59 AM EDT) Creatinine, Urine 55.0 mg/dL [facility] Microalbumin Urine Random 86.9(H) 0.0 - 29.0 mg/L [facility] Microalbumin/Cre atinine Ratio 158(H) <30 mg/g creat [facility] Urine Urine specimen obtained by clean catch procedure / Unknown 11/11/2024 10:59 AM EDT 11/11/2024 11:56 AM EDT us [facility] URINE ORDERABLES Final Result Performing Organization Address [facility] Co de Phone Number [facility] [address] [place] [address] * Vitamin D 25 hydroxy (11/11/2024 10:08 AM EDT) Vitamin D, 25-OH, Total 31.4 30.0 - 80.0 ng/mL [facility] Blood Venous blood / Unknown 11/11/2024 10:08 AM EDT 11/11/2024 11:55 AM EDT [facility] BLOOD ORDERABLES Final Result Performing Organization Address City/[facility]/ZIP Co de Phone Number [facility] [address] [place] [address] * (ABNORMAL) Renal function panel (11/11/2024 10:08 AM EDT) Sodium 139 133 - 145 mmol/L [facility] Potassium 4.6 3.5 - 5.5 mmol/L [facility] Chloride 107 96 - 110 mmol/L [facility] Bicarbonate (CO2) 21 21 - 32 mmol/L [facility] Anion Gap 11 3 - 11 [facility] Glucose 117(H) 70 - 100 mg/dL [facility] BUN 15 5 - 25 mg/dL [facility] Creatinine Serum 0.96 0.50 - 1.10 mg/dL [facility] eGFR 62 >=60 mL/min/1. 73m2 [facility] Comment:Calculation based on the Chronic Kidney Disease Epidemiology Collaboration (CKD-EPI) equation refit without adjustment for race. BUN/Creatinine Ratio 15.6 [facility] Albumin 3.7 3.2 - 5.0 g/dL [facility] Calcium 9.4 8.5 - 10.5 mg/dL [facility] Phosphorus 4.4 2.5 - 4.5 mg/dL [facility] Blood Venous blood / Unknown 11/11/2024 10:08 AM EDT 11/11/2024 11:55 AM EDT Camilla Hwang [facility] BLOOD ORDERABLES Final Result JAILENE [facility] [address] [place] [address] * (ABNORMAL) EXT RESULT ENTRY (12/01/2020) Sodium 140 137 - 147 Potassium 4.2 3.4 - 5.5 Chloride 104 99 - 108 Bicarbonate (CO2) 29 22 - 30 mmol/L Anion Gap 7 <=30 MMOL/L Glucose 109 60 - 200 BUN 12 4 - 21 mg/dL Creatinine 0.67 0.50 - 1.10 mg/dL Calcium 8.7 8.7 - 10.7 mg/dL eGFR Non-Afr [place] >60 Hemoglobin A1C 8.3(A) 4.0 - 6.0 [...] Health Maintenance Insurance Unicare Unicare Care Teams Chicken Vaccinator Relationship Specialty Start Date End Date Kathryn Romero MD [address] [place] [address] PCP - General Internal Medicine 07/15/23
--- OUTSIDE RECORDS SUMMARY | 2025-01-04 14:22 | XMS_ITS | Clinical Summary ---
Author Organization [facility] Address [address] [place] [address] Phone Care Team Providers Care Human Resources Associate Name Role Phone Kathryn Romero MD Primary Care Provider [phone] Allergies Active Allergy Reactions Criticality Noted Date Comments [facility] Derived Sneezing 07/15/2020 D And C Yellow No.10 Hives [...] up to BID prn itching 2024 Active prednisoLONE acetate (PRED FORTE) 1 % [...] UNITS SUBCUTANEOUSLY AT BEDTIME 45 mL 11 024 Active Additional Information Patient taking differently: 90 Units subcutaneous Every morning, Reported on 11/12/2024 sacubitriL-valsa rtan (ENTRESTO) 49-51 mg per tablet Take 1 tablet by mouth 2 (two) times a day. 180 each 3 025 2025 Active spironolactone (ALDACTONE) 25 mg tablet Take 1 tablet (25 mg total) by mouth 1 (one) time each day. 90 each 3 025 2025 Active dorzolamide-perla loL (COSOPT) 22.3-6.8 mg/mL ophthalmic solution Administer 1 drop into the right eye 2 (two) times a day. Active atorvastatin (LIPITOR) 40 mg tablet TAKE 1 TABLET BY MOUTH EVERY DAY 90 tablet 1 025 Active triamcinolone (KENALOG) 0.025 % ointment APPLY TWICE A DAY FOR 28 DAYS 30 g 2 025 Active BD Selina 2nd Gen Pen Needle 32 gauge x 5/32 needleIndication s:Type 2 diabetes mellitus with other diabetic kidney complication (CMS/HCC V24, CMS/[facility] V28) USE 4 TIMES A DAY 200 each 6 025 Active metFORMIN (GLUCOPHAGE) 500 mg tabletIndication s:Type 2 diabetes mellitus with other diabetic kidney complication (CMS/HCC V24, CMS/[facility] V28) TAKE 2 TABLETS BY [...] units; 401-450: 14 units; 451-500: 15 units Active carvediloL (COREG) 12.5 mg tablet TAKE 1 TABLET BY MOUTH 2 TIMES DAILY (WITH MEALS) FOR 90 DAYS. 180 tablet 1 Active lancets lancetsIndicatio ns:Type 2 diabetes mellitus with cataract ([facility] V24, [facility] V28) Check blood 3 times a day or as directed 400 each 3 025 2025 Active semaglutide (Ozempic) 2 mg/dose (8 mg/3 mL) injection penIndications:T ype 2 diabetes mellitus with other diabetic kidney complication ([facility] V24, [facility] V28) INJECT 2 MG INTO THE SKIN ONCE A WEEK. 3 mL 5 Active empagliflozin (Jardiance) 10 mg tabletIndication s:Ischemic cardiomyopathy Take 2 tablets (20 mg total) by mouth 1 (one) time each day. 180 tablet 3 Active glucose blood test stripIndications :Type 2 diabetes mellitus without complication, with long-term current use of insulin ([facility] V24, [facility] V28) Used to test blood sugar three times a day 200 each 12 025 2025 Active blood-glucose meter kitIndications:T ype 2 diabetes mellitus with cataract ([facility] V24, [facility] V28) Use 3 times daily or as directed for monitoring of diabetes 1 each 025 2024 Discontinued glucose blood test stripIndications :Type 2 diabetes mellitus with cataract ([facility] V24, [facility] V28) Use to check blood sugar 3 times daily as directed. 400 each 3 025 2024 Discontinued(F ormulary change) blood-glucose meter (Accu-Chek Guide Glucose Meter) miscIndications: Type 2 diabetes mellitus with cataract ([facility] V24, [facility] V28) USE 3 TIMES DAILY OR DIRECTED FOR MONITORING OF DIABETES 1 each 025 2024 Discontinued(F ormulary change) Active Problems Problem Noted Date Diagnosed Date Type 2 diabetes mellitus, wi th long-term current use of insulin ([facility] V24, [facility] V28) 08/14/2024 Aortic stenosis 08/14/2024 [...] 05/14/2017 Overview (05/25/2024): DX:Coronary artery disease involving buckland coronary artery of buckland heart without angina pectoris - Cath in [...] cath in July 2022 showing again severe buckland four-vessel disease with patent vein graft to [...] she strongly bring this up with her industrial refrigeration mechanic as this is being done for worsening A1c and not for cardiac reasons. For now, she will continue 10 mg of Jardiance but will plan to discuss the dosing change with her industrial refrigeration mechanic. Continue current spironolactone, Entresto, carvedilol. She was [...] Encounters Date Type Department Care Team Description 11/16/2024 Telephone Endocrinology [address] [phone] Joaquina Rosado PA 11/12/2024 10:45 AM EDT Office Visit Endocrinology - [address] [phone] Joaquina Rosado PA Type 2 diabetes mellitus with cataract ([facility] V24, [facility] V28) (Primary Dx); Essential hypertension, benign; Mixed hyperlipidemia 11/12/[address] [phone] Joaquina Rosado PA 10/16/2024 11:30 AM EDT Office Visit Adult Medicine [address] [phone] Kathryn Romero MD Mixed hyperlipidemia (Primary Dx); Essential hypertension, benign from Last 3 Months Immunizations Name Administration [...] tubular adenoma. OTHER SURGICAL HISTORY 10/04/2022 PROCEDURE: [place] REPLACE AORTIC VALVE PERQ FEMORAL ARTRY APPROACH [...] antony cardiomyopathy Coronary artery disease invo lving buckland coronary artery of buckland heart without angina pectoris 05/14/2017 DX:Coronary artery disea se involving buckland coronary artery of buckland heart without angina pectoris Ankle weakness 06/16/2012 DX:Ankle weaknes s Aortic stenosis, moderate 03/18/2017 DX:Aor tic stenosis, moderate Glaucoma 11/10/2018 DX:Glaucoma Cataract 11/10/2018 DX:Cataract Type 2 diabetes mellitus wit h cataract (CMS/HCC V24, CMS/HCC V28) 11/10/2018 DX:Type 2 diabetes [...] Sign Reading Time Taken Comments Blood Pressure 108/60 11/12/2024 11:15 AM EDT C Pulse 78 11/12/2024 11:15 AM EDT Temperature 35.8 C (96.4 F) 11/12/2024 11:15 AM EDT Respiratory Rate 14 10/16/2024 11:28 AM EDT Oxygen Saturation 98% 10/16/2024 11:28 AM EDT Inhaled Oxygen Concentration - - Weight 93.6 kg (206 lb 6.4 oz) 11/12/2024 11:15 AM EDT Height 162.6 cm (5' 4 ) 11/12/2024 11:15 AM EDT Body Mass Index 35.43 11/12/2024 11:15 AM EDT Plan of Treatment Upcoming Encounters Date Type Department Care Team (Late st Contact Info) Description 02/12/2025 10:00 AM EDT Office Visit [address] [phone] Joaquina Rosado PA [address] [place] [address] 03/01/2025 11:00 AM EST Ancillary Procedure [facility] [address] [place] [phone] 03/15/2025 10:40 AM EST Appointment Radiology Department - [address] [phone] 04/20/2025 10:00 AM EST Office Visit Adult [facility] - [address] [phone] Kathryn Romero MD [address] [place], [place] Health Maintenance Due Date Last Done Comments COVID-19 Vaccine (#1) 1955 Hepatitis A Vaccines (1 of 2 - Risk 2-dose series) 1969 Hepatitis B Vaccines (1 of 3 - Risk 3-dose series) 2010 RSV Immunization Adult Patients (1 - Risk 60-74 years 1-dose series) 2010 Social Influencers of Health Screening 04/07/2022 Depression Screening 04/29/2024 Influenza Vaccine (#1) 2024 , 01/14/2023, 02/02/2022, Additional history exists Diabetes: Blood Sugar Control Test (HGBA1C) 05/14/2025 11/11/2024, 04/24/2024, 01/13/2024, Additional history exists Diabetes: Annual Foot Exam 05/19/2025 05/19/2024 Falls Risk Assessment 08/14/2025 08/14/2024 Diabetes: Annual Retina Eye Exam 08/18/2025 08/18/2024, 08/18/2024, 05/13/2023 Diabetes: Annual Urine Albumin-Creatinine Ratio (uACR) 11/11/2025 11/11/2024, 11/11/2024, 11/07/2023 Diabetes: Annual GFR (Glomerular Filtration Rate) 11/11/2025 11/11/2024, 04/24/2024, 01/13/2024, Additional history exists Hypertension/CHF/CAD Annual BMP Blood Test 11/11/2025 11/11/2024, 04/24/2024, 01/13/2024, Additional history exists Breast Cancer Screening 02/12/2026 02/13/20, 02/13/2024, 02/01/2023, Additional history exists DTaP,Tdap,and Td Vaccines (3 - Td or Tdap) 06/19/2028 06/19/2018, 03/09/2008 Colorectal Cancer Screening: Colonoscopy 08/14/2029 08/14/2024, 10/15/2018, 10/15/2018 Cholesterol Screening (Lipid Panel) 11/11/2029 11/11/2024, 04/24/2024, 11/07/2023, Additional history exists Osteoporosis Screening (Bone Density Screening) 09/10/2039 09/09/2024, [...] Procedure Name Priority Date/Time Associated Diagnosis Comments POC GLUCOSE Routine 11/12/2024 11:11 AM EDT Type 2 diabetes mellitus with cataract ([facility] V24, [facility] V28) MICROALBUMIN CREATININE URINE RATIO Routine 11/11/2024 10:59 AM EDT Chronic kidney disease, stage 2 (mild) Essential (primary) hypertension Proteinuria, unspecified PROTEIN AND CREATININE WITH RATIO, URINE Routine 11/11/2024 10:59 AM EDT Chronic kidney disease, stage 2 (mild) Essential (primary) hypertension Proteinuria, unspecified HEMOGLOBIN A1C Routine 11/11/2024 10:08 AM EDT Type 2 diabetes mellitus with cataract ([facility] V24, [facility] V28) RENAL FUNCTION PANEL Routine 11/11/2024 10:08 AM EDT Chronic kidney disease, stage 2 (mild) Essential (primary) hypertension Proteinuria, unspecified VITAMIN D 25 HYDROXY Routine 11/11/2024 10:08 AM EDT Chronic kidney disease, stage 2 (mild) Vitamin D deficiency, unspecified LIPID PANEL WITH REFLEX TO DIRECT LDL Routine 11/11/2024 10:08 AM EDT Mixed hyperlipidemia EXTERNAL CLINICAL LAB 11/05/2024 EXTERNAL CLINICAL LAB 11/05/2024 EXTERNAL DEXA REPORT 09/09/2024 EXTERNAL DIABETIC RETINA EYE EXAM Routine 08/18/2024 12:38 PM EDT COLONOSCOPY Routine 08/14/2024 12:33 PM EDT History of colon polyps SCREENING MAMMOGRAPHY BI 2-VIEW BREAST INC CAD Routine 02/13/2024 10:42 AM EDT Encounter for screening mammogram for malignant neoplasm of breast HEPATITIS C SCREENING Routine 10/15/2012 from Last 3 Months or Most Recently Relevant to Health Maintenance Results * POC glucose manually resulted (11/12/2024 11:11 AM EDT) Glucose POC 150 mg/dL Comment:non fasting Blood Capillary blood specimen / Unknown 11/12/2024 11:11 AM EDT us Joaquina MONTENEGRO POINT OF CARE TEST ENTER/ED IT ORDERABLES Final Result * (ABNORMAL) Protein and creatinine with ratio, urine (11/11/2024 10:59 AM EDT) Protein, Urine 20 mg/dL LAB CHEMISTRY METHOD 11/11/2024 3:44 PM EDT [facility] Prot/Creat, Ur 0.36(H) <=0.20 mg/mg creat LAB CHEMISTRY METHOD 11/11/2024 3:44 PM EDT [facility] Creatinine, Urine 55.0 mg/dL LAB CHEMISTRY METHOD 11/11/2024 3:44 PM EDT [facility] Urine Urine specimen obtained by clean catch procedure / Unknown Non-blood Collection / Unknown 11/11/2024 10:59 AM EDT 11/11/2024 10:59 AM EDT Camilla Jaiden [facility] LAB URINE ORDERABLES Final R esult [facility] [address] [place] [address], * (ABNORMAL) Microalbumin creatinine urine ratio (11/11/2024 10:59 AM EDT) Creatinine, Urine 55.0 mg/dL LAB CHEMISTRY METHOD 11/11/2024 3:54 PM EDT [facility] Microalb, Ur 86.9(H) 0.0 - 29.0 mg/L LAB CHEMISTRY METHOD 11/11/2024 3:54 PM EDT [facility] Microalb/Crea t Ratio 158(H) <30 mg/g creat LAB CHEMISTRY METHOD 11/11/2024 3:54 PM EDT [facility] Urine Urine specimen obtained by clean catch procedure / Unknown Non-blood Collection / Unknown 11/11/2024 10:59 AM EDT 11/11/2024 10:59 AM EDT us Camilla Hwang ERP PROJECT MANAGER LAB URINE ORDERABLES Final R esult [facility] [address] [place] [address], [place] [phone] * (ABNORMAL) Lipid panel with reflex to direct LDL (11/11/2024 10:08 AM EDT) Cholesterol 155 0 - 200 mg/dL LAB CHEMISTRY METHOD 11/11/2024 1:17 PM EDT [facility] Triglycerides 260(H) 0 - 150 mg/dL LAB CHEMISTRY METHOD 11/11/2024 1:17 PM EDT [facility] HDL 49 >=40 mg/dL LAB CHEMISTRY METHOD 11/11/2024 1:17 PM EDT [facility] LDL Calculated 54 0 - 100 mg/dL LAB CHEMISTRY METHOD 11/11/2024 1:17 PM EDT [facility] VLDL Cholesterol Aman 52 mg/dL LAB CHEMISTRY METHOD 11/11/2024 1:17 PM EDT [facility] Non HDL Chol. (LDL+VLDL) 106 <145 mg/dL LAB CHEMISTRY METHOD 11/11/2024 1:17 PM EDT [facility] Chol/HDL Ratio 3.2 0.0 - 4.4 LAB CHEMISTRY METHOD 11/11/2024 1:17 PM EDT [facility] Blood Venous blood specimen / Unknown Venipuncture / Unknown 11/11/2024 10:08 AM EDT 11/11/2024 10:08 AM EDT us Kathryn Romero MD LAB BLOOD ORDERABLES Final Resul t [facility] [address] [place] [address], [place] [phone] * Vitamin D 25 hydroxy (11/11/2024 10:08 AM EDT) Pathologist [facility] Vit D, 25-Hydroxy 31.4 30.0 - 80.0 ng/mL LAB CHEMISTRY METHOD 11/11/2024 2:09 PM EDT [facility] Blood Venous blood specimen / Unknown Venipuncture / Unknown 11/11/2024 10:08 AM EDT 11/11/2024 10:08 AM EDT Camilla SYEDP LAB BLOOD ORDERABLES Final R esult [facility] [address] [place] [address], * (ABNORMAL) Hemoglobin A1c (11/11/2024 10:08 AM EDT) [facility] Hemoglobin A1C 8.3(H) <6.5 % LAB CHEMISTRY METHOD 11/11/2024 2:24 PM EDT [facility] Mean Bld Glu Estim. 192 mg/dL LAB CHEMISTRY METHOD 11/11/2024 2:24 PM EDT [facility] Blood Venous blood specimen / Unknown Venipuncture / Unknown 11/11/2024 10:08 AM EDT 11/11/2024 10:08 AM EDT Joaquina MONTENEGRO LAB BLOOD ORDERABLES Final Result [facility] [address] [place] [address], [place] [phone] * (ABNORMAL) Renal function panel (11/11/2024 10:08 AM EDT) [facility] Sodium 139 133 - 145 mmol/L LAB CHEMISTRY METHOD 11/11/2024 1:17 PM EDT [facility] Potassium 4.6 3.5 - 5.5 mmol/L LAB CHEMISTRY METHOD 11/11/2024 1:17 PM [facility] Chloride 107 96 - 110 mmol/L LAB CHEMISTRY METHOD 11/11/2024 1:17 PM [facility] CO2 21 21 - 32 mmol/L LAB CHEMISTRY METHOD 11/11/2024 1:17 PM [facility] Anion Gap 11 3 - 11 LAB CHEMISTRY METHOD 11/11/2024 1:17 PM [facility] Glucose 117(H) 70 - 100 mg/dL LAB CHEMISTRY METHOD 11/11/2024 1:17 PM [facility] BUN 15 5 - 25 mg/dL LAB CHEMISTRY METHOD 11/11/2024 1:17 PM [facility] Creatinine 0.96 0.50 - 1.10 mg/dL LAB CHEMISTRY METHOD 11/11/2024 1:17 PM [facility] eGFR 62 >=60 mL/min/1. 73m2 LAB CHEMISTRY METHOD 11/11/2024 1:17 PM [facility] Comment:Calculation based on the Chronic Kidney Disease Epidemiology Collaboration (CKD-EPI) equation refit without adjustment for race. BUN/Creatinine Ratio 15.6 LAB CHEMISTRY METHOD 11/11/2024 1:17 PM [facility] Albumin 3.7 3.2 - 5.0 g/dL LAB CHEMISTRY METHOD 11/11/2024 1:17 PM [facility] Calcium 9.4 8.5 - 10.5 mg/dL LAB CHEMISTRY METHOD 11/11/2024 1:17 PM [facility] Phosphorus 4.4 2.5 - 4.5 mg/dL LAB CHEMISTRY METHOD 11/11/2024 1:17 PM [facility] Blood Venous blood specimen / Unknown Venipuncture / Unknown 11/11/2024 10:08 AM EDT 11/11/2024 10:08 AM EDT Camilla Hwang ERP PROJECT MANAGER LAB BLOOD ORDERABLES Final R esult [facility] [address] [place] [address], [place] [phone] * External clinical lab (11/05/2024) Only the most recent of2 resultswithin the time period is included. Provider [facility] LAB BLOOD ORDERABLES Fin al Result * External Dexa Report (09/09/2024) Anatomical Region Laterality Modality Bone Densitometr y Provider [place] [facility] IMG DXA PROCEDURES Final Result * External Diabetic Retina Eye Exam Report (08/18/2024 12:38 PM EDT) Anatomical Region Laterality Modality Ultrasound Historical Provider IMG US PROCEDURES Final R esult * COLONOSCOPY Anesthesia - MAC; [facility] (08/14/2024 12:33 PM EDT) Anatomical Region [...] pathology results. Narrative 08/14/2024 12:34 PM EDT [facility] GI Patient Name: Paige Bonds Procedure [...] without abnormality. Procedure Code(s): --- Professional --- 86752, Colonoscopy, flexible; with removal of tumor(s), polyp(s), or other lesion(s) by snare technique Diagnosis Code(s): --- Professional --- Z86.010, Personal history of colonic polyps D12.0, Benign neoplasm of cecum D12.2, Benign neoplasm of ascending colon D12.4, Benign neoplasm of descending colon D12.8, Benign neoplasm of rectum Z83.71, Family history of colonic polyps CPT copyright 2020 [employer]. All rights reserved. The codes documented in this report are preliminary and upon mig welder review may be revised to meet current compliance requirements. Conchis Carranza MD 08/14/2024 12:34:41 PM This report has been signed electronically.Cocnhis Carranza MD Number of Addenda: 0 Note Initiated On: 08/14/2024 12:01 PM Scope In: Scope Out: Endoscopy Department at [facility] - [address] [place] [phone] Procedure Note Conchis Carranza MD - 08/14/2024 [facility] GI Patient Name: Paige Bonds Procedure Date: 08/14/2024 12:01 PM Date of : 1950 Age: 74 Gender: Female Note Status: Finalized Attending MD: Conchis Cararnza MD, Procedure Date No Time: 08/14/2024 Procedure: [...] without abnormality. Procedure Code(s): --- Professional --- 77874, Colonoscopy, flexible; with removal of tumor(s), polyp(s), or other lesion(s) by snare technique Diagnosis Code(s): --- Professional --- Z86.010, Personal history of colonic polyps D12.0, Benign neoplasm of cecum D12.2, Benign neoplasm of ascending colon D12.4, Benign neoplasm of descending colon D12.8, Benign neoplasm of rectum Z83.71, Family history of colonic polyps CPT copyright 2020 [employer]. All rights reserved. The codes documented in this report are preliminary and upon mig welder reviewmay be revised to meet current compliance requirements. Conchis Carranza MD 08/14/2024 12:34:41 PM This report has been signed electronically.Conchis Carranza MD Number of Addenda: 0 Note Initiated On: 08/14/2024 12:01 PM Scope In: Scope Out: Endoscopy Department at [facility] - [address] [place] [phone] IMPRESSION: - The examined portion of the [...] Carranza MD GI~PROCEDURE ORDERABLES Final Result * SCREENING MAMMOGRAPHY BI 2-VIEW BREAST INC [...] Breast cancer risk category Low (<15%) Location: [facility], [address] [place] [address], [phone], [phone] Procedure Note Geo Mata MD - 02/25/2024 [...] Breast cancer risk category Low (<15%) Location: [facility], [address] [place] [address], [address], [phone] Adolfo Campbell DO IMG XR PROCEDURES Final Resul t * Hepatitis C Screening (10/15/2012) [facility] Hepatitis C Screening Abstracted Historical Provider HEALTH MAINTENANCE Final Result from Last 3 Months or Most Recently Relevant to Health Maintenance Insurance [employer] Care Teams Human Resources Associate Relationship Specialty Start Date End Date Kathryn Romero MD [address] [place] [phone] PCP - General Internal Medicine 04/16/24
== END 2025-01-04 11:43 | disposition home or self-care (01) ==
LOC: HO.HKASLDS 11:42
PROVIDERS: Visit Provider Internal Medicine Rheumatology
DX: M81.0 Age-related osteoporosis without current pathological fracture (principal)
CPT/HCPCS: 36415; 82306

== ENCOUNTER 2025-02-18 09:49 | Outpatient (AMB) | payer OTHER, SELFPAY ==
[2023-05-24 16:49] VITALS: BP 116/62; BP 168/68; BMI 34.4
--- NOTE | 2025-02-18 10:07 | MHC.OFFVIS ---
Vital Signs 02/18/25 10:13 Height 5 ft 4 in Weight 207 lb 0.225 oz BMI 35.5 BP 110/70 Blood Pressure Location Rt brachial Position Sitting Pulse 78 Pulse Source Pulse Oximeter Pulse Oximetry (%) 95 Oxygen Delivery Method Room Air Intake Visit Reasons: 3 Months Intake Note: Patient presents for follow up on RA today. Accompanied by: Self / Same As Patient Allergies ALL COLOR DYES Allergy (Unknown, Uncoded 01/14/20 19:20) RASH/SOB HPI HPI 3 Months: Details: No fragility fractures. She continues to take vitamin-D 2 capsules daily. She was unable to tolerate calcium supplement because it was too large of a pill for her to swallow. [facility] Social History Patient Tobacco Use Status: Never used Tobacco Physical Exam Vital Signs: Last Vital Signs Pulse 78 02/18/25 10:13 BP 110/70 02/18/25 10:13 Pulse Ox 95 02/18/25 10:13 Oxygen Delivery Method Room Air 02/18/25 10:13 BMI result Body Mass Index 35.5 Const Other: General: Comfortable Skin: No lesions seen Ambulates with walker MSK: She has muscle wasting in her thighs. Abdomen: Multiple circular bruises at prior injection sites. Assessment & Plan Assessment & Plan (1) Osteoporosis: Comment: With history of fragility fracture affecting right wrist and left patella. She is high-risk for future fractures. Bone density 08/2024 reveals lowest T-score in osteopenic range -2.3 left femoral neck with FRAX revealing high-risk for future fractures. She meets WHO definition of osteoporosis based on having fragility fractures. Romosuzamab is indicated followed by anti resorptive agents such as Reclast to optimize gains from anabolic agent. Romosuzumab was denied by insurance. Patient has history of coronary artery disease status post CABG 2016. I have spoken with her jordan worker 2023 who has informed me that patient's cardiac status is protected with her current CABG and she is okay with patient being on Romosuzamab with close monitoring. Currently she administers 5 insulin subcutaneous injection daily: Humalog subcutaneous injection 3 to 4 times a day and Lantus in the morning. She also takes Ozempic subcutaneous injection weekly for diabetes control. She is using abdomen sites for insulin, Humalog and Ozempic. She has muscle wasting in her thighs. She has multiple bruises on her abdomen from her daily subcutaneous injection use. She does not have adequate subcutaneous injection site for another subcutaneous injection, Forteo. Patient does not have another family member or friend that could administer Forteo in her upper arms to access another side. Forteo is contraindicated in patient. I am recommending Romosuzumab approval to help treat patient's osteoporosis with high fracture risk. Treatment sequence matters. Best gains in improving bone density is when anabolic agent is followed by anti resorptive agent. It is not appropriate for her to be started on Prolia as it is an anti resorptive agent. Prolia could be followed by anabolic agent, romosuzumab, for optimal results in improving bone density. The benefits gained from romosuzumab is further consolidated with an anti resorptive agents such as Prolia or Reclast. Vitamin-D level December 2024 is normal on 2000 IU vitamin-D daily. Code(s): M81.0 - Age-related osteoporosis without current pathological fracture Category: Medical Qualifiers: Osteoporosis type: age-related Presence of current pathological fracture: unspecified Qualified Code(s): M81.0 - Age-related osteoporosis without current pathological fracture Plan: Bebetoosuzfarrukhb PA appeal. I will try to arrange a peer to peer as it is inappropriate for her insurance to force patient to administer Forteo with her current situation. She will try to take OTC calcium and vitamin-D to gummies b.i.d. ([employer] brand) Return to clinic in 3 months Coding Level of Care Code Est Pt Level 3 (44206) Complex EM visit Add On G2211 Diagnoses Age related osteoporosis, unspecified pathological fracture presence M81.0 Osteoporosis type: age-related Presence of current pathological fracture: unspecified
[2025-02-18 10:13] VITALS: BP 110/70; PULSE 78; O2SAT 95; BMI 35.5
--- OUTSIDE RECORDS SUMMARY | 2025-02-18 11:16 | XMS_ITS | Encounter Summary ---
Author Organization [facility] Address [address] [place] [address] Care Team Providers Care Licensed Weigher Name Role Phone Kathryn Romero MD Primary Care Provider [phone] Reason for Visit * Reason Onset Date Comments Medication Problem 02/17/2025 Encounter Details Date Type Department Care Team (Late st Contact Info) Description 02/17/2025 Telephone Endocrinology - [address] [phone] Joaquina Rosado PA [address] [place] [id number] Social History Tobacco Use Types Packs/Day Years Used Date Smoking Tobacco: Never Passive Smoke Exposure: Never Smokeless Tobacco: Never Alcohol Use Standard Drinks/Week Comments No 0 (1 standard drink = 0.6 oz pur e alcohol) Comments No Sex and Gender Information Value Date Recorded Sex Assigned at Female 06/12/2024 12:50 PM EST Legal Sex Female 12:10 AM EST Gender Identity Female 06/12/2024 12:50 PM EST Sexual Orientation Not on file documented as of this encounter Progress Notes * Zahida Pabon - 02/17/2025 3:11 PM EDT Endocrine Call Primary endocrine provider: Joaquina Rosado PA-C Is the endocrine provider in the office toady?: yes Who is calling? The patient. If not the patient or parent/guardian please check for authorization to share/verbal release. Why is the person calling? Other question/concern: Medication problem: Pt says test strips were supposed to be sent as accu check guide, 400 in quantity (90 day supply) she test 3-4 times a day. Accucheck fast click lancets (90 day supply). Selina pen needles 2nd gen ( 60 day supply). She says that she is charged extra with a 30 day supply . Please forward to endocrine pool (p [phone]). documented in this encounter Plan of Treatment Upcoming Encounters Date Type Department Care Team (Late st Contact Info) Description 03/01/2025 11:00 AM EST Ancillary Procedure [facility] [address] [facility] [address] [place] [address] 03/15/2025 10:40 AM EST Appointment Radiology Department - [address] [phone] 04/20/2025 10:00 AM EST Office Visit [facility] - [address] [phone] Kathryn Romero MD [address] [place] [address] 05/17/2025 9:30 AM EST Office Visit Endocrinology - [address] [phone] Nikki Romero PA [address] [place] [address] documented as of this encounter Visit Diagnoses Not on filedocumented in this encounter Care Teams Licensed Weigher Relationship Specialty Start Date End Date Kathryn Romero MD [address] [place] [address] PCP - General Internal Medicine 04/16/24 documented as of this encounter
--- OUTSIDE RECORDS SUMMARY | 2025-02-18 11:17 | XMS_ITS | Encounter Summary ---
Author Organization [facility] Address [address] [facility] [address] [place] [id number] Phone Care Team Providers Care Head Packager Name Role Phone Kathryn Romero MD Primary Care Provider [phone] Encounter Details Date Type Department Care Team (Late st Contact Info) Description 01/29/2025 Ophth Exam [facility] [address] [place] [address] Desiree Hollins [address] [place] [address] [email or web address] Social History Tobacco Use Types Packs/Day Years Used Date Smoking Tobacco: Never Assessed Education Answer Date Recorded Are you interested in more education? Not on guillermo e 01/29/2025 Are you concerned about learning? Not on file 01/29/2025 No 01/29/2025 No 01/29/2025 Food Answer Date Recorded Within the past 6 months we worried whether our food would run out before we got money to buy more. Never True 01/29/2025 Within the past 6 months the food we bought just didn't last and we didn't have enough money to get more. Never True Residential Stability Answer Date Recor ded What is your housing situation today? I have kamilah chino 01/29/2025 How many times have you move d in the past 12 months? Zero (I did not move) 01/29/2025 Paying for Meds Answer Date Recorded Do you have trouble paying for medicines? No 01/29/2025 Paying Utility Bills Answer Date Record ed Do you have trouble paying your heating or elect ricity bill? No 01/29/2025 Transportation Answer Date Recorded Has the lack of transportati on kept you from medical appointments or from getting medications? No 01/29/2025 Digital Access Answer Date Recorded No 01/29/2025 Yes 01/29/2025 Do you have reliable internet access at home? Ye s 01/29/2025 Do you have a device (e.g., phone, tablet, computer) with a working camera? Yes 01/29/2025 Intimate Partner Violence Answer Date R ecorded Are you denied basic needs s uch as food, clothing, or medical care? No 01/29/2025 In the past 12 months have y ou been in a relationship with a person who hurts, threatens, or tries to control you? No 01/29/2025 Are you denied basic needs s uch as food, clothing, or medical care? No 01/29/2025 In the past 12 months have y ou been in a relationship with a person who hurts, threatens, or tries to control you? No 01/29/2025 Comments No Sex and Gender Information Value Date Recorded Sex Assigned at Female 01/29/2025 1:13 PM EDT Legal Sex Female 11:40 AM EDT Gender Identity Female 01/29/2025 1:13 PM EDT Sexual Orientation Straight 01/29/2025 1: 13 PM EDT documented as of this encounter Functional Status * Calculated C-SSRS Risk Score (Lifetime/Recent) Answer Date of Assessment Author No Risk Indicated 01/29/2025 12:58 PM EDT Prachi Avilez RN * [place] Suicide Severity Rating Scale (Screener/Recent Self-Report) Question Answer Date of Assessment Author 1. Wish to be (Past 1 Month) No 01/29/2025 12:58 PM EDT Azalea Hernandez, VERONICA 2. Non-Specific Active Suicidal Thoughts (Past 1 Month) No 01/29/2025 12:58 PM EDT Azalea Hernandez, VERONICA 6. Suicidal Behavior (Lifetime) No 01/29/2025 12:58 PM EDT Azalea Hernandez, VERONICA documented as of this encounter Plan of Treatment Not on file documented as of this encounter Visit Diagnoses Not on filedocumented in this encounter Care Teams Head Packager Relationship Specialty Start Date End Date Kathryn Romero MD [address] [place] [id number] PCP - General Internal Medicine 01/29/25 documented as of this encounter Additional Source Comments The information contained in this document represents components of the legal health record. It is not the complete legal health record.[facility]
--- OUTSIDE RECORDS SUMMARY | 2025-02-18 11:17 | XMS_ITS | Clinical Summary ---
Author Organization [facility] Address [address] [place] [address] Phone Care Team Providers Care [employer] Name Role Phone Kathryn Romero MD Primary Care Provider [phone] Allergies Active Allergy Reactions Criticality Noted Date Comments D And C Yellow No.10 Hives 09/05/2006 [...] Active pen needle, diabetic 32 gauge x /32 needle Inject 4 Devices into the skin daily. 08/22/19 24 Active prednisoLONE acetate (PRED FORTE) 1 % ophthalmic suspension Place 1 Drop into the right eye twice a week. 07/17/19 18 Active amoxicillin (AMOXIL) 500 mg tablet Take 4 tablets (2,000 mg total) by mouth 1 (one) time if needed (1 hour prior to dental procedures). 12 tablet 1 03/18/20 24 Active sacubitriL-valsar pennington (ENTRESTO) 49-51 mg per tablet Take 1 tablet by mouth 2 (two) times a day. 180 each 3 05/25/19 25 2025 Active spironolactone (ALDACTONE) 25 mg tablet Take 1 tablet (25 mg total) by mouth 1 (one) time each day. 90 each 3 05/25/19 25 2025 Active dorzolamide-timol oL (COSOPT) 22.3-6.8 mg/mL ophthalmic solution Administer 1 drop into the right eye 2 (two) times a day. Active triamcinolone (KENALOG) 0.025 % ointment APPLY TWICE A DAY FOR 28 DAYS 30 g 2 08/05/19 25 Active metFORMIN (GLUCOPHAGE) 500 mg tabletIndications :Type 2 diabetes mellitus with other diabetic kidney complication ([facility] V24, [facility] V28) TAKE 2 TABLETS BY MOUTH TWICE A DAY WITH MEALS 360 tablet 1 09/01/19 25 Active carvediloL (COREG) 12.5 mg tablet TAKE 1 TABLET BY MOUTH 2 TIMES DAILY (WITH MEALS) FOR 90 DAYS. 180 tablet 1 10/23/19 25 Active semaglutide (Ozempic) 2 mg/dose (8 mg/3 mL) injection penIndications:Ty pe 2 diabetes mellitus with other diabetic kidney complication ([facility] V24, [facility] V28) INJECT 2 MG INTO THE SKIN ONCE A WEEK. 3 mL 5 11/18/19 25 Active lancets lancets Check blood sugar four times a day or as directed Dispense one touch meter was softclix, 100 each 01/15/20 25 2025 Active atorvastatin (LIPITOR) 40 mg tablet Take 1 tablet (40 mg total) by mouth 1 (one) time each day. 90 tablet 1 01/20/20 25 Active UNABLE TO FIND 1 Device by Not Applicable route 1 (one) time each day. 01/14/20 25 Active moxifloxacin (VIGAMOX) 0.5 % ophthalmic solution Administer 1 drop into the right eye 4 (four) times a day. 02/05/20 25 Active erythromycin 5 mg/gram (0.5 %) ophthalmic ointment Apply 0.5 g to right eye 3 (three) times a day. 02/04/20 Active acyclovir (ZOVIRAX) 200 mg capsule Take 1 capsule (200 mg total) by mouth 3 (three) times a day. 02/09/20 25 Active empagliflozin (Jardiance) 10 mg tabletIndications :Type 2 diabetes mellitus with cataract ([facility] V[facility], [facility] V28) Take 2 tablets (20 mg total) by mouth 1 (one) time each day. 02/13/20 25 Active insulin glargine (Lantus Solostar U-100 Insulin) 100 unit/mL (3 mL) injection pen 95 units sc in the morning 45 mL 5 02/13/20 Active insulin aspart (NovoLOG Flexpen U-100 Insulin) 100 unit/mL (3 mL) injection pen Inject 3 (three) times a day before meals per scale 100-149: 10 units; 150-200: 11 units; 201-250: 12 units; 251-300: 13 units; 301-350: 14 units; 351-400: 15 units; 401-450: 16 units; 451-500: 17 units 15 mL 11 02/13/20 Active pen needle, diabetic (BD Selina 2nd Gen Pen Needle) 32 gauge x 5/32 needleIndications :Type 2 diabetes mellitus with other diabetic kidney complication ([facility] V24, [facility] V28) USE 4 TIMES A DAY 200 each 6 02/13/20 25 Active glucose blood test stripIndications: Type 2 diabetes mellitus without complication, with long-term current use of insulin ([facility] V24, [facility] V28) Used to test blood sugar three times a day 200 each 12 02/13/20 25 2025 Active nystatin (MYCOSTATIN) ointment Apply up to BID prn itching 02/12/20 24 2024 insulin glargine (Lantus Solostar U-100 Insulin) 100 unit/mL (3 mL) injection pen INJECT 90 UNITS SUBCUTANEOUSLY AT BEDTIME 45 mL 11 03/31/20 24 2024 Discontin ued(Reord er) BD Selina 2nd Gen Pen Needle 32 gauge x 5/32 needleIndications :Type 2 diabetes mellitus with other diabetic kidney complication ([facility] V24, [facility] V28) USE 4 TIMES A DAY 200 each 6 08/29/19 25 2024 Discontin ued(Reord er) insulin aspart (NovoLOG Flexpen U-100 Insulin) 100 unit/mL (3 mL) injection pen Inject 8-15 Units under the skin 3 (three) times a day before meals. 100-149: 8 units; 150-200: 9 units; 201-250: 10 units; 251-300: 11 units; 301-350: 12 units; 351-400: 13 units; 401-450: 14 units; 451-500: 15 units 09/03/19 25 2024 Discontin ued(Reord er) empagliflozin (Jardiance) 10 mg tabletIndications :Ischemic cardiomyopathy Take 2 tablets (20 mg total) by mouth 1 (one) time each day. 180 tablet 3 11/18/19 25 2024 Discontin ued(Formu julián change) glucose blood test stripIndications: Type 2 diabetes mellitus without complication, with long-term current use of insulin ([facility] V24, [facility] V28) Used to test blood sugar three times a day 200 each 12 12/23/19 25 2024 Discontin ued(Reord er) Active Problems Problem Noted Date Diagnosed Date Type 2 diabetes mellitus, wi th long-term current use of insulin ([facility] V24, [facility] V28) 08/14/2024 Aortic stenosis 08/14/2024 History [...] 05/14/2017 Overview (05/25/2024): DX:Coronary artery disease involving [place]-apache coronary artery of [place] heart without angina pectoris - Cath in [...] cath in July 2022 showing again severe [place]-apache four-vessel disease with patent vein graft to [...] 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 Continue current spironolactone, Entresto, carvedilol. She was happy to hear that her ejection fraction had improved. Type 2 diabetes mellitus wit h cataract ([facility] V24, [facility] V28) Overview (03/12/2024): DX:Type 2 diabetes mellitus with cataract (HCC) Type 2 diabetes mellitus wit h renal manifestations ([facility] V24, [facility] V28) Overview (03/12/2024): DX:Type 2 diabetes mellitus with renal manifestations (HCC) Encounters Date Type Department Care Team Description 02/17/20[address] [phone] Joaquina Rosado PA 02/12/2025 10:00 AM EDT Office Visit Endocrinology [address] [phone] Joaquina Rosado PA Type 2 diabetes mellitus with cataract ([facility] V24, [facility] V28) (Primary Dx); Essential hypertension, benign; Microalbuminuria; Mixed hyperlipidemia 01/12/2025 Telephone Endocrinology [address] [phone] Joaquina Rosado PA from Last 3 Months Immunizations Immunization Administration Dates Next Due Influenza trivalent, 0.5mL ( Fluad) 65yo and older 01/16/2024,04/04/2015 Influenza trivalent, 0.5mL ( Fluzone High-dose) 65yo and older 01/08/2025,01/14/2023,02/02/2022,02/09,01/28/2020,02/25/2019,02/18/2018 ,01/13/2017 Influenza trivalent, with pr eservative (Fluzone; Afluria) [...] antony cardiomyopathy Coronary artery disease invo lving [place]ap[place]-apache coronary artery of [place]-apache heart without angina pectoris 05/14/2017 DX:Coronary artery disea se involving [place]-apache coronary artery of [place]-apache heart without angina pectoris Ankle weakness 06/16/2012 [...] at 68, amyloidosis Colon polyps Brother 2 Maximilian ? number of darrion yps-? 8-9 Other: [...] Sign Reading Time Taken Comments Blood Pressure 104/55 02/12/2025 9:51 AM EDT Pulse 74 02/12/2025 9:51 AM EDT Temperature 36.1 C (96.9 F) 02/12/2025 9:51 AM EDT Respiratory Rate 14 10/16/2024 11:28 AM EDT Oxygen Saturation 98% 10/16/2024 11:28 AM EDT Inhaled Oxygen Concentration - - Weight 93.1 kg (205 lb 3.2 oz) 02/12/2025 9:51 A M EDT Height 161.3 cm (5' 3.5 ) 02/12/2025 9:51 AM EDT Body Mass Index 35.78 02/12/2025 9:51 AM EDT Plan of Treatment Upcoming Encounters Date Type Department Care Team (Late st Contact Info) Description 03/01/2025 11:00 AM EST Ancillary Procedure [facility] [address] [place] [address] 03/15/2025 10:40 AM EST Appointment Radiology Department - [address] [phone] 04/20/2025 10:00 AM EST Office Visit Adult Medicine [address] [phone] Kathryn Romero MD [address] [place] [address] 05/17/2025 9:30 AM EST Office Visit Endocrinology [address] [phone] Nikki Romero PA [address] [place] [address] Health Maintenance Due Date Last Done Comments COVID-19 Vaccine (#1) 1955 Hepatitis A Vaccines (1 of 2 - Risk 2-dose series) 1969 RSV Immunization Adult Patients (1 - Risk 50-74 years 1-dose series) 2000 Hepatitis B Vaccines (1 of 3 - Risk 3-dose series) 2010 Social Influencers of Health Screening 04/07/2022 Depression Screening 04/29/2024 Diabetes: Blood Sugar Control Test (HGBA1C) 05/14/2025 [...] Additional history exists Breast Cancer Screening 02/12/2026 02/13/20 24, 02/13/2024, [...] Completed 11/17/2021, 05/2019, 05/30/2016 Influenza Vaccine Completed 01/08/2025, , 01/14/2023, Additional history exists HIB Vaccines Aged Out [...] Date/Time Associated Diagnosis Comments POC GLUCOSE Routine 02/12/2025 10:02 AM EDT Type 2 diabetes mellitus with cataract ([facility] V24, [facility] V28) MICROALBUMIN CREATININE URINE RATIO Routine 11/11/2024 10:59 AM EDT Chronic kidney disease, stage 2 (mild) Essential (primary) hypertension Proteinuria, unspecified RENAL FUNCTION PANEL Routine 11/11/2024 10:08 AM EDT Chronic kidney disease, stage 2 (mild) Essential (primary) hypertension Proteinuria, unspecified HEMOGLOBIN A1C Routine 11/11/2024 10:08 AM EDT Type 2 diabetes mellitus with cataract ([facility] V24, [facility] V28) LIPID PANEL WITH REFLEX TO DIRECT LDL Routine 11/11/2024 10:08 AM EDT Mixed hyperlipidemia EXTERNAL DEXA REPORT 09/09/2024 EXTERNAL DIABETIC RETINA [...] Maintenance Results * POC glucose manually resulted (02/12/2025 10:02 AM EDT) Glucose POC 119 mg/dL Blood Capillary blood specimen / Unknown 02/12/2025 10:02 AM EDT Joaquina MONTENEGRO POINT OF CARE TEST ENTER/ED IT ORDERABLES Final Result * (ABNORMAL) Microalbumin creatinine urine ratio (11/11/2024 10:59 AM EDT) Creatinine, Urine 55.0 mg/dL LAB CHEMISTRY METHOD 11/11/2024 3:54 PM EDT [facility] Microalb, Ur 86.9(H) 0.0 - 29.0 mg/L LAB CHEMISTRY METHOD 11/11/2024 3:54 PM EDT [facility] Microalb/Crea t Ratio 158(H) <30 mg/g creat LAB CHEMISTRY METHOD 11/11/2024 3:54 PM EDT [facility] Urine Urine specimen obtained by clean catch procedure / Unknown Non-blood Collection / Unknown 11/11/2024 10:59 AM EDT 11/11/2024 10:59 AM EDT Camilla Hwang [facility] URINE ORDERABLES Final R esult [facility] [address] [place] [address], * (ABNORMAL) Lipid panel with reflex to direct LDL (11/11/2024 10:08 AM EDT) Cholesterol 155 0 - 200 mg/dL LAB CHEMISTRY METHOD 11/11/2024 1:17 PM EDT [facility] Triglycerides 260(H) 0 - 150 mg/dL LAB CHEMISTRY METHOD 11/11/2024 1:17 PM EDT [facility] HDL 49 >=40 mg/dL LAB CHEMISTRY METHOD 11/11/2024 1:17 PM EDT [facility] LDL Calculated 54 0 - 100 mg/dL LAB CHEMISTRY METHOD 11/11/2024 1:17 PM EDT [facility] VLDL Cholesterol Aman 52 mg/dL LAB CHEMISTRY METHOD 11/11/2024 1:17 PM EDT [facility] Non HDL Chol. (LDL+VLDL) 106 <145 mg/dL LAB CHEMISTRY METHOD 11/11/2024 1:17 PM EDT [facility] Chol/HDL Ratio 3.2 0.0 - 4.4 LAB CHEMISTRY METHOD 11/11/2024 1:17 PM EDT [facility] Blood Venous blood specimen / Unknown Venipuncture / Unknown 11/11/2024 10:08 AM EDT 11/11/2024 10:08 AM EDT Kathryn Romero MD LAB BLOOD ORDERABLES Final Resul t [facility] [address] [place] [address], * (ABNORMAL) Hemoglobin A1c (11/11/2024 10:08 AM EDT) Hemoglobin A1C 8.3(H) <6.5 % LAB CHEMISTRY METHOD 11/11/2024 2:24 PM EDT [facility] Mean Bld Glu Estim. 192 mg/dL LAB CHEMISTRY METHOD 11/11/2024 2:24 PM EDT [facility] Blood Venous blood specimen / Unknown Venipuncture / Unknown 11/11/2024 10:08 AM EDT 11/11/2024 10:08 AM EDT Joaquina MONTENEGRO LAB BLOOD ORDERABLES Final Result [facility] [address] [place] [address], * (ABNORMAL) Renal function panel (11/11/2024 10:08 AM EDT) Sodium 139 133 - 145 mmol/L LAB CHEMISTRY METHOD 11/11/2024 1:17 PM [facility] Potassium 4.6 3.5 - 5.5 mmol/L LAB CHEMISTRY METHOD 11/11/2024 1:17 PM [facility] Chloride 107 96 - 110 mmol/L LAB CHEMISTRY METHOD 11/11/2024 1:17 PM [facility] CO2 21 21 - 32 mmol/L LAB CHEMISTRY METHOD 11/11/2024 1:17 PM [facility] Anion Gap 11 3 - 11 LAB CHEMISTRY METHOD 11/11/2024 1:17 PM [facility] Glucose 117(H) 70 - 100 mg/dL LAB CHEMISTRY METHOD 11/11/2024 1:17 PM [facility] BUN 15 5 - 25 mg/dL LAB CHEMISTRY METHOD 11/11/2024 1:17 PM [facility] Creatinine 0.96 0.50 - 1.10 mg/dL LAB CHEMISTRY METHOD 11/11/2024 1:17 PM [facility] eGFR 62 >=60 mL/min/1. 73m2 LAB CHEMISTRY METHOD 11/11/2024 1:17 PM [facility] Comment:Calculation based on the Chronic Kidney Disease Epidemiology Collaboration (CKD-EPI) equation refit without adjustment for race. BUN/Creatinine Ratio 15.6 LAB CHEMISTRY METHOD 11/11/2024 1:17 PM [facility] Albumin 3.7 3.2 - 5.0 g/dL LAB CHEMISTRY METHOD 11/11/2024 1:17 PM EDT [facility] Calcium 9.4 8.5 - 10.5 mg/dL LAB CHEMISTRY METHOD 11/11/2024 1:17 PM EDT [facility] Phosphorus 4.4 2.5 - 4.5 mg/dL LAB CHEMISTRY METHOD 11/11/2024 1:17 PM EDT [facility] Blood Venous blood specimen / Unknown Venipuncture / Unknown 11/11/2024 10:08 AM EDT 11/11/2024 10:08 AM EDT Camilla Hwang [facility] LAB BLOOD ORDERABLES Final R esult [facility] [address] [place] [address], [place] [phone] * External Dexa Report (09/09/2024) Anatomical Region Laterality Modality Bone Densitometr y Provider [facility] IMG DXA PROCEDURES Final Result * External Diabetic Retina Eye Exam Report (08/18/2024 12:38 PM EDT) Anatomical Region Laterality Modality Ultrasound Historical Provider IMG US PROCEDURES Final R esult * [place] [facility] [facility]COPY (08/14/2024 12:33 PM EDT) Anatomical Region [...] pathology results. Narrative 08/14/2024 12:34 PM EDT [facility] GI Patient Name: Paige Bonds Procedure Date: [...] without abnormality. Procedure Code(s): --- Professional --- 10798, Colonoscopy, flexible; with removal of tumor(s), polyp(s), or other lesion(s) by snare technique Diagnosis Code(s): --- Professional --- Z86.010, Personal history of colonic polyps D12.0, Benign neoplasm of cecum D12.2, Benign neoplasm of ascending colon D12.4, Benign neoplasm of descending colon D12.8, Benign neoplasm of rectum Z83.71, Family history of colonic polyps CPT copyright 2020 [employer]. All rights reserved. The codes documented in this report are preliminary and upon marine machinist review may be revised to meet current compliance requirements. Conchis Carranza MD 08/14/2024 12:34:41 PM This report has been signed electronically.Conchis Carranza MD Number of Addenda: 0 Note Initiated On: 08/14/2024 12:01 PM Scope In: Scope Out: Endoscopy Department at [facility] - [address] [place] [phone] Procedure Note Conchis Carranza MD - 08/14/2024 [facility] GI Patient Name: Paige Bonds Procedure Date: [...] without abnormality. Procedure Code(s): --- Professional --- 76231, Colonoscopy, flexible; with removal of tumor(s), polyp(s), or other lesion(s) by snare technique Diagnosis Code(s): --- Professional --- Z86.010, Personal history of colonic polyps D12.0, Benign neoplasm of cecum D12.2, Benign neoplasm of ascending colon D12.4, Benign neoplasm of descending colon D12.8, Benign neoplasm of rectum Z83.71, Family history of colonic polyps CPT copyright 2020 [employer]. All rights reserved. The codes documented in this report are preliminary and upon marine machinist reviewmay be revised to meet current compliance requirements. Conchis Carranza MD 08/14/2024 12:34:41 PM This report has been signed electronically.Conchis Carranza MD Number of Addenda: 0 Note Initiated On: 08/14/2024 12:01 PM Scope In: Scope Out: Endoscopy Department at [facility] - [address] [place] [phone] IMPRESSION: - The examined portion of the [...] Breast cancer risk category Low (<15%) Location: [facility], [address] [place] [address], [phone], [phone] Procedure Note Geo Mata MD - 02/25/2024 [...] Breast cancer risk category Low (<15%) Location: [facility], [address] [place] [address], [id number], [phone] Adolfo Campbell DO IMG XR PROCEDURES Final Resul t * Hepatitis C Screening (10/15/2012) Pathologist [facility] Hepatitis C Screening Abstracted us Historical Provider HEALTH MAINTENANCE Final Result from Last 3 Months or Most Recently Relevant to Health Maintenance [facility] Care [facility] [employer] Relationship Specialty Start Date End Date Kathryn Romero MD [address] [place] [phone] PCP - General Internal Medicine 04/16/24
--- OUTSIDE RECORDS SUMMARY | 2025-02-18 11:17 | XMS_ITS | Clinical Summary ---
Author Organization [facility] Address [address] [place] [phone] Phone Care Team Providers Care Interactive Producer Name Role Phone Kathryn Romero MD Primary Care Provider [phone] Allergies Active Allergy Reactions Criticality Noted Date Comments Blue Dye #1 (Gunter Blue) Hives 007 [place] 07/15/2020 Grass Pollen Standardized Ext Other (see comments) 07/15/2020 Green Dye Hives 09/05/2006 Red Dye #2 (Amaranth) (Non-Screening) Hives 09/05/2006 Yellow Dye #6 (Warner Yellow) Hives 2006 Medications Semaglutide, 1 MG/DOSE, [...] disorder due to type 2 diabetes mellitus <Unspecified DM Medication; Diabetic nephropathy> (HCC) Take 2 tablets (1,000 mg total) by mouth in the morning and 2 tablets (1,000 mg total) in the evening. 2 in the am, 2 tabs in the pm daily. 360 tablet 3 4 Active sacubitril-vals guillermo (Entresto) 49-51 MG per tablet Take 1 tablet by mouth in the morning and 1 tablet in the evening. Active spironolactone (ALDACTONE) 25 MG tablet Take 25 mg by mouth 1 (one) time each day Active triamcinolone (KENALOG) 0.025 % ointment Apply 1 application. topically if needed 4 Active Blood Pressure Monitoring (Omron 3 Series BP Monitor) deviceIndicatio ns:Chronic kidney disease, stage 2 (mild),Essentia l hypertension,Pr oteinuria, not otherwise specified 1 Device 1 (one) time each day 1 each 5 Active Empagliflozin 10 MG tablet Take 20 mg by mouth in the morning. 5 Active D3 High Potency 25 MCG capsule Take 2,000 Units by mouth 1 (one) time each day Active nystatin (MYCOSTATIN) ointment Apply 1 application. topically if needed 4 02/07/20 25 Active Problems Problem Noted Date Diagnosed Date [...] Date Resolved Date Pruritus of vagina 07/19/2021 Overview (01/18/2022): Last Assessment & Plan: Wet prep done today, will treat as indicated. Cardiac murmur 07/15/2020 07/18/2021 Chronic rhinitis 12/17/2019 01/18/2022 Allergic conjunctivitis of bilateral eyes 12/17/2019 01/18/2022 Glaucoma 11/10/2018 01/18/2022 Ischemic cardiomyopathy 08/13/201712/29 For resuscitation 07/10/2017 01/18/2022 Nonrheumatic aortic valve stenosis 03/18/2017 01/18/2022 Overview (01/18/2022): ECHO 11/02/2021 EF 60-65% Disorder of ankle 06/16/2012 01/18/2022 Encounters Date Type Department Care Team Description 01/13/2025 11:15 AM EDT [facility] Visit [facility] [address] [phone] Camilla Hwang ARNP Chronic kidney disease, stage 2 (mild) (Primary Dx); Essential hypertension; Proteinuria, not otherwise specified; Vitamin D deficiency, not otherwise specified; Hypo-osmolality and hyponatremia 01/13/2025 Refill [facility] [address] [phone] Sylwia Dailey MA Chronic kidney disease, stage 2 (mild); Essential hypertension; Proteinuria, not otherwise specified 12/29/2024 Office Communication [facility] [address] [phone] Ysabel Linda from Last 3 Months Immunizations Immunization Administration [...] Sign Reading Time Taken Comments Blood Pressure 138/80 01/13/2025 11:38 AM EDT Pulse 82 01/13/2025 11:38 AM EDT Temperature - - Respiratory Rate - - Oxygen Saturation 97% 01/13/2025 11:38 AM EDT Inhaled Oxygen Concentration - - Weight 92.5 kg (204 lb) 01/13/2025 11:38 AM EDT Height 165.1 cm (5' 5 ) 01/25/2023 10:01 AM EDT Body Mass Index 33.95 01/25/2023 10:01 AM EDT Plan of Treatment Upcoming Encounters Date Type Department Care Team (Late st Contact Info) Description 07/15/2025 10:15 AM EDT [facility] Visit [facility] [address] [phone] Camilla Hwang ARNP [address] [phone] Health Maintenance Due Date Last Done Comments Breast Cancer Screening 1950 Colorectal Cancer Screening: Annual FOBT 1999 Colorectal Cancer Screening: Colonoscopy 1999 Colorectal Cancer Screening: Sigmoidoscopy 1999 Hepatitis B Vaccine (1 of 3 - Risk 3-dose series) 2010 Diabetes: Ophthalmology Exam 05/29/2020 Diabetes: Pedal Pulse Checked 05/29/2020 Diabetes: Sensory Foot Exam 05/29/2020 Diabetes: Visual Foot Exam 05/29/2020 Diabetes: Hemoglobin A1C 02/11/2025 025, 11/11/2024, 04/24/2024, Additional history exists Pneumococcal Vaccine: 50+ Years Completed 01/23/2017, 12/21/2015, 12/10/2012, Additional history exists Pneumococcal Vaccine: Peds ( 0 to 5 Years) and At-Risk Patients (6 to 49 Years) Discontinued 01/23/2017, 12/21/2015, 12/10/2012, Additional history exists Influenza Vaccine Completed 01/08/2025, , 01/14/2023, Additional history exists Procedures Procedure Name Priority Date/Time Associated Diagnosis Comments EXT RESULT ENTRY Routine 12/01/2020 from Last 3 Months or Most Recently Relevant to Health Maintenance Results * (ABNORMAL) EXT RESULT ENTRY (12/01/2020) Sodium 140 137 - 147 Potassium 4.2 3.4 - 5.5 Chloride 104 99 - 108 Bicarbonate (CO2) 29 22 - 30 mmol/L Anion Gap 7 <=30 MMOL/L Glucose 109 60 - 200 BUN 12 4 - 21 mg/dL Creatinine 0.67 0.50 - 1.10 mg/dL Calcium 8.7 8.7 - 10.7 mg/dL eGFR Non-Afr Hong Konger >60 Hemoglobin A1C 8.3(A) 4.0 - 6.0 [...] Relevant to Health [id number] Care Teams Interactive Producer Relationship Specialty Start Date End Date Kathryn Romero MD [address] [place] [phone] PCP - General Internal Medicine 07/15/23
--- OUTSIDE RECORDS SUMMARY | 2025-02-18 11:17 | XMS_ITS | Encounter Summary ---
Author Organization [facility] Address [address] [place] [address] Phone Care Team Providers Care Oral Pathologist Name Role Phone Kathryn Romero MD Primary Care Provider [phone] Encounter Details Date Type Department Care Team (Late Contact Info) Description 05/01/2022 Telephone [facility] [address] [facility] [address] [place] [phone] Marcela Lewis MD Social History [...] Department Care Team (Late Contact Info) Description 07/15/2025 10:15 AM EDT Office Visit [facility] [address] [facility] [address] [place] [phone] Camilla Hwang ARNP [address] [facility] [address] [place] [phone] documented as of this encounter Visit Diagnoses Not on filedocumented in this encounter Care Teams Oral Pathologist Relationship Specialty Start Date End Date Kathryn Romero MD [address] [place] [phone] PCP - General Internal Medicine 07/15/23 documented as of this encounter
--- OUTSIDE RECORDS SUMMARY | 2025-02-18 11:18 | XMS_ITS | Clinical Summary ---
Author Organization [facility] Address [address] [address] Phone Care Team Providers Care Aml Analyst Name Role Phone Kathryn Romero MD Primary Care Provider [phone] Allergies No known active allergies Medications No known medications Active Problems Problem Noted Date Diagnosed Date Diabetes 01/29/2025 HTN (hypertension) 01/29/2025 Encounters Date Type Department Care Team Description 01/29/2025 11:42 AM EDT - 01/29/2025 5:48 PM EDT Emergency [facility] Emergency Department [address] [place] [address] Janusz Wise MD Discharge Disposition: Home or Self Care 01/29/2025 Ophth Exam [facility] Emergency Department [address] [place] [address] Desiree Hollins from Last 3 Months Immunizations No known immunizations Social History Tobacco Use Types Packs/Day Years [...] your housing situation today? I have kamilah sing 01/29/2025 How many times have you move [...] Orientation Straight 01/29/2025 1: 13 PM EDT Last Filed Vital Signs Vital Sign Reading Time Taken Comments Blood Pressure 153/87 01/29/2025 1:00 PM EDT Pulse 82 01/29/2025 1:00 PM EDT Temperature 36.5 C (97.7 F) 01/29/2025 1:00 PM EDT Respiratory Rate 18 01/29/2025 1:00 PM EDT Oxygen Saturation 97% 01/29/2025 1:00 PM EDT Inhaled Oxygen Concentration - - Weight 90.7 kg (200 lb) 01/29/2025 1:00 PM EDT Height 161.3 cm (5' 3.5 ) 01/29/2025 1:00 PM EDT Body Mass Index 34.87 01/29/2025 1:00 PM EDT Plan of Treatment Not on file Medical Devices Not on file Procedures Procedure Name Priority Date/Time Associated Diagnosis Comments FUNGAL WET PREP Routine 01/29/2025 5:25 PM EDT ACANTHAMOEBA SPECIES MOLECULAR DETECTION, PCR, OCULAR STAT 01/29/2025 5:25 PM EDT GRAM STAIN STAT 01/29/2025 5:25 PM EDT FUNGAL CULTURE STAT 01/29/2025 5:25 PM EDT EYE CULTURE STAT 01/29/2025 5:25 PM EDT B-SCAN ULTRASOUND - OU - BOTH EYES STAT 01/29/2025 3:55 PM EDT from Last 3 Months Results * EYE CULTURE (01/29/2025 5:25 PM EDT) Special Requests RECEIVED Received on [employer] Transport System 01/29/2025 5:42 PM EDT [facility] Eye Culture NO GROWTH 01/30/2025 10:37 AM EDT [facility] Other (Eye) 01/29/2025 5:25 PM EDT 01/29/2025 5:41 PM EDT Comment:EYE OD us Janusz Wise MD MICROBIOLOGY - GENERA L ORDERABLES Final Result [facility] [address] [place] [address] * Fungal wet prep (01/29/2025 5:25 PM EDT) Special Requests RECEIVED Received on [employer] Transport System 01/29/2025 5:43 PM EDT [facility] WET PREP NO FUNGI SEEN 02/01/2025 12:20 PM EDT [facility] Eye 01/29/2025 5:25 PM EDT 01/29/2025 5:41 PM EDT Comment:EYE OD Desiree Gurvinder MICROBIOLOGY - GENERAL ORDERABLE S Final Result Performing Organization Address City/[facility]/ZIP Co de Phone Number [facility] [address] [place] [address] * Acanthamoeba Species PCR, Ocular (01/29/2025 5:25 PM EDT) Specimen Source corneal scraping [facility] Comment:Corrected on 02/05 A T 1016: previously reported as EYE Acanthamoeba Species PCR Negative Negative [facility] Comment: (NOTE) ADDITIONAL INFORMATION The preferred specimens for Acanthamoeba species PCR are corneal scrapings or biopsy. Swabs are suboptimal and may result in a falsely negative result. This test was developed and its performance characteristics determined by [facility] in a manner consistent with CLIA requirements. This test has not been cleared or approved by the U.S. Food and Drug administration. Other (Eye) 01/29/2025 5:25 PM EDT 01/29/2025 5:44 PM EDT Janusz Wise MD MICROBIOLOGY - GENERA L ORDERABLES Edited Result - Final Performing Organization Address [facility] Co de Phone Number [facility] [address] [place] [phone] * Gram Stain (01/29/2025 5:25 PM EDT) Special Requests RECEIVED Received on [employer]Sw[employer] Transport System 01/29/2025 5:43 PM EDT [facility] GRAM STAIN NO POLYS , NO ORGANISMS SEEN 01/29/2025 7:34 PM EDT [facility] Other (Eye) 01/29/2025 5:25 PM EDT 01/29/2025 5:41 PM EDT Comment:EYE OD Janusz Wise MD MICROBIOLOGY - GENERA L ORDERABLES Final Result [facility] [address] [facility] [place] [address] * B-Scan Ultrasound - OU - Both Eyes (01/29/2025 3:55 PM EDT) Anatomical Region Laterality Modality Head ECHOGRAPHY Narrative 01/30/2025 2:45 PM EDT Right Eye Technique: closed lids. Contour: within normal limits. Lens: phakic. Vitreous: interfaces, mobile, low reflective, loose. Retrobulbar echo pattern: within normal limits. Left Eye Technique: closed lids. Contour: within normal limits. Lens: phakic. Vitreous: interfaces, mobile, low reflective, loose. Retrobulbar echo pattern: within normal limits. General Details Testing performed by: LEAH Maldonado. Notes Minimal, low reflective punctate echoes, both eyes. Uniform debris pattern both eyes. Retina attached, both eyes. Erica Irvin MD, PhD Virginia Ceballos MD OPHTHALMOLOGY IMAGING Final Result from Last 3 Months Insurance [employer] TOTAL CHOICE INDEMNITY [employer] TOTAL CHOICE INDEMNITY [facility] TOTAL CHOICE INDEMNITY [facility] TOTAL CHOICE INDEMNITY [facility] [employer] INDEMNITY [facility] TOTAL CHO[employer] INDEMNITY Care Teams Aml Analyst Relationship Specialty Start Date End Date Kathryn Romero MD [address] [place] [phone] PCP - General Internal Medicine 01/29/25 Additional Source Comments The information contained in this document represents components of the legal health record. It is not the complete legal health record.[facility]
== END 2025-02-18 11:25 | disposition home or self-care (01) ==
LOC: HO.RHES 09:50
PROVIDERS: PCP Internal Medicine; Visit Provider Internal Medicine Rheumatology
DX: M81.0 Age-related osteoporosis without current pathological fracture (principal)
CPT/HCPCS: 99213